=== PATIENT | female | born 1940 | race Caucasian/White ===

== ENCOUNTER → 2016-03-25 | Outpatient (CLI) | payer MEDICARE ==
[~2016-03-25] VITALS: Ht 162.6 cm; Wt 78.0 kg
[~2016-03-25] MED LIST: ALPR.25T; ALPR0.254; BNZ40T; CATHETER FLUSH 10 ML SYR IV PRN; FLD5TCR; HCT25T; HYDR-3816; HYDR25TA4; LSNP10T; MECL-106; MELO7.5T46; PRAV20TA3; PROP1TAB77; SIMV40TA2
--- NOTE | 2016-03-26 09:54 | STRESS TEST ---
PROCEDURE PHYSICIAN: NAIMA ESTEVEZ EXERCISE MYOVIEW STRESS TEST REPORT DATE OF PROCEDURE: 03/25/2016 REFERRING PHYSICIAN: Dr. Cortés Baseline heart rate is 74, baseline blood pressure: 166/87. Baseline EKG: Sinus rhythm with no ischemic changes. INDICATION FOR THE PROCEDURE: Syncope, hypertension. SUMMARY: The patient was injected with 10.33 mCi of technetium 99 Myoview and the resting images were obtained. Then the patient started exercising with a baseline heart rate, blood pressure and EKG mentioned above. At minute 3 and 7 seconds, the patient was injected with 32.6 mCi of technetium 99 Myoview. The patient was able to exercise for a total of 4 minutes on standard Horace protocol. With peak exercise level, EKG was showing minimal nondiagnostic changes. Blood pressure was 215/90. During recovery, heart rate and blood pressure returned to baseline. EKG returned to baseline. The resting and stress images were reviewed and compared in the short axis, horizontal long axis, and vertical long axis views. Review of the images showed good radiotracer uptake with small left ventricular size. SSS is 2, SDS 2, TID value 0.91. On the gated images, the left ventricle appeared to be normal size with normal contractility. Calculated ejection fraction 76%. CONCLUSION: 1. Fair exercise tolerance a total of 4 minutes on standard Horace protocol. Total of 4.6 METs, achieving 94% of maximum expected heart rate. 2. Severe hypertensive response to exercise. Returned to baseline during recovery. 3. Minimal nondiagnostic EKG changes with exercise. Returned to baseline during recovery. 4. No significant ischemia or infarction on SPECT images. 5. Normal left ventricular size with normal contractility. Calculated ejection fraction 76%. Job ID: [id number] Dictated Date: 03/25/2016 19:20:47 Tier Lift Operator Date: 03/26/2016 09:49:33 / ancelmo
== END ==
LOC: CARD 07:19
PROVIDERS: ATTEND Physician Assistant
DX: I65.23 Occlusion and stenosis of bilateral carotid arteries (principal); I10 Essential (primary) hypertension; E78.2 Mixed hyperlipidemia; R55 Syncope and collapse
CPT/HCPCS: 78452; 93017

== ENCOUNTER → 2016-03-31 | Outpatient (CLI) | payer MEDICARE ==
[~2016-03-31] MED LIST changes: -CATHETER FLUSH 10 ML SYR IV PRN
--- NOTE | 2016-04-02 07:36 | ECHOCARDIOGRAPHY REPORT ---
PROCEDURE PHYSICIAN: NAIMA ESTEVEZ DATE OF PROCEDURE: 04/01/2016 TWO DIMENSIONAL ECHOCARDIOGRAM REPORT PRIMARY PHYSICIAN: OTHER PHYSICIAN: REFERRING PHYSICIAN: Dr. Cortés ORDERING PHYSICIAN: INDICATION FOR THE PROCEDURE: 1. Hypertension. 2. Syncope. MEASUREMENTS DERIVED VALUES LV DIAMETER (LAX) NORMALS NORMALS Diastolic 3.8 (3.6-5.2) Eject. Fract. 60% (60%+/-6%) Systolic (2.3-3.9) Diastolic Vol. % Shortening (0.22-0.42) Systolic Vol. Aortic Root IVS THICKNESS Diastolic 1 (0.6-1.1) LVPW THICKNESS Diastolic 1 (0.6-1.1) LA DIAMETER Systolic 3.3 (2.1-3.7) FINDINGS: 1. Technical quality is good. 2. The left ventricle is normal in size with normal contractility. Systolic function appeared to be normal. Estimated ejection fraction 60%. 3. The left atrium is normal in size. No clot or thrombus were seen within the left atrium. 4. The right atrium and right ventricle are normal in size. No clot or thrombus were seen within the right side. 5. Mitral valve is normal in morphology with mild mitral regurgitation noted by color Doppler flow. No mitral valve prolapse. No mitral valve stenosis. 6. Aortic valve is trileaflet with normal opening and closing pattern. No significant aortic stenosis or regurgitation was seen. 7. Tricuspid valve is normal in morphology with mild tricuspid regurgitation noted by color Doppler flow. Doppler across tricuspid valve estimated pulmonary artery pressure of 20+ right atrial pressure. 8. Pulmonic valve is functioning normally. 9. No pericardial effusion. IN CONCLUSION: 1. Normal left ventricular size and systolic function. Estimated ejection fraction 60%. 2. Mild mitral and tricuspid regurgitation. 3. Estimated pulmonary artery pressure of 25 to 30 mmHg. Job ID: [id number] Dictated Date: 04/01/2016 15:26:40 Transplant Worker Date: 04/02/2016 07:30:26 / gissel
== END ==
LOC: CARD 13:35
PROVIDERS: ATTEND Physician Assistant
DX: I65.23 Occlusion and stenosis of bilateral carotid arteries (principal); I10 Essential (primary) hypertension; E78.2 Mixed hyperlipidemia; R55 Syncope and collapse
CPT/HCPCS: 93306

== ENCOUNTER → 2016-04-03 | Outpatient (CLI) | payer MEDICARE | LOC: RT 10:41 | PROVIDERS: ATTEND Internal Medicine | DX: R06.02 Shortness of breath (principal) | CPT/HCPCS: 94060; 94726; 94729 ==

== ENCOUNTER 2017-03-26 13:16 | Outpatient (RCR) | payer MEDICARE | END 2017-03-26 14:08 | disposition home or self-care (01) | PROVIDERS: ATTEND Nurse Practitioner Family | DX: M17.11 Unilateral primary osteoarthritis, right knee (principal) ==

== ENCOUNTER → 2017-09-21 | Outpatient (CLI) | payer MEDICARE ==
[~2017-09-21] MED LIST changes: +BENA40TA5; -BNZ40T; +HYDR-34; -HYDR-3816
--- NOTE | 2017-09-21 11:05 | Diagnostic Imaging Report ---
INDICATION: Routine screening. COMPARISON: 09/20/2015 and 09/18/2014. TECHNIQUE: 2D and 3D bilateral screening mammography was performed with CAD. FINDINGS: Both breasts remain heterogeneously dense, limiting the sensitivity of mammography. The parenchymal pattern is stable. No mass or malignant appearing microcalcifications are seen. Benign calcifications on the right are noted. The axillae are unremarkable. IMPRESSION: No mammographic features suspicious for malignancy are identified. ACR BI-RADS Category 2: Benign findings. Result letter will be mailed to the patient. Note: At least 10% of breast cancer is not imaged by mammography. Dictated by: Dictated on workstation # [id number]
== END ==
LOC: RAD 07:40
PROVIDERS: ATTEND Internal Medicine
DX: Z12.31 Encounter for screening mammogram for malignant neoplasm of breast (principal)
CPT/HCPCS: 77067

== ENCOUNTER 2018-05-04 09:46 | Outpatient (CLI) | payer MEDICARE ==
[~2018-05-04] VITALS: Ht 162.6 cm; Wt 78.9 kg
[~2018-05-04 09:46] MED LIST changes: -ALPR0.254; +ALPR0.254 PO; -MELO7.5T46; +MELO7.5T46 PO
[2018-05-04 09:56] VITALS: BP 132/81
[2018-05-04 10:53] LABS: BASOPHILS % (AUTO) 1 % (0-10); EOSINOPHILS # (AUTO) 0.2 10^3/uL (0.0-0.3); EOSINOPHILS % (AUTO) 5 % (0-10); HEMATOCRIT 40 % (35-52); HEMOGLOBIN 13.6 G/DL (11.5-16.0); LYMPHOCYTES % (AUTO) 25 % (12-44); MEAN CORPUSCULAR HEMOGLOBIN 30 PG (25-34); MEAN CORPUSCULAR HGB CONC 34 G/DL (32-36); MEAN CORPUSCULAR VOLUME 88 FL (80-99); MEAN PLATELET VOLUME 9.3 FL (7.4-10.4); MONOCYTES # (AUTO) 0.4 X 10^3 (0.0-1.0); MONOCYTES % (AUTO) 11 % (0-12); NEUTROPHILS # (AUTO) 2.3 X 10^3 (1.8-7.8); NEUTROPHILS % (AUTO) 59 % (42-75); PLATELET COUNT 288 10^3/uL (130-400); RED CELL DISTRIBUTION WIDTH 13.7 % (10.0-14.5)
[2018-05-04 11:03] LABS: INR 0.9 (0.8-1.4); PROTHROMBIN TIME PATIENT 12.6 SEC (12.2-14.7)
[2018-05-04 11:09] LABS: CALCIUM 10.1 MG/DL (8.5-10.1); CREATININE SERUM 1.02 MG/DL (0.60-1.30); POTASSIUM 4.5 MMOL/L (3.6-5.0)
[2018-05-04 11:45] LABS: BILIRUBIN,URINE NEGATIVE (NEGATIVE); CLARITY,URINE CLEAR; COLOR,URINE YELLOW; GLUCOSE, URINE (UA) NEGATIVE (NEGATIVE); KETONES,URINE NEGATIVE (NEGATIVE); LEUKOCYTE ESTERASE ,URINE NEGATIVE (NEGATIVE); NITRITE,URINE NEGATIVE (NEGATIVE); PH,URINE 7 (5-9); PROTEIN,URINE NEGATIVE (NEGATIVE); UROBILINOGEN,URINE NORMAL (NORMAL)
[2018-05-04 12:27] LABS: BACTERIA,URINE LARGE /HPF; WBC,URINE RARE /HPF
--- NOTE | 2018-05-04 12:39 | Diagnostic Imaging Report ---
EXAMINATION: PA and lateral chest at 10:40 a.m. INDICATION: Preop total knee arthroplasty. FINDINGS: There are no prior studies available for comparison. The heart size is within normal limits. The lungs are clear. There is no evidence for failure, pneumonia, or for a pleural effusion. The mediastinum is not widened. The osseous structures are intact. There is severe degenerative disc and bony disease at T8-T9 and T9-T10. IMPRESSION: There is no evidence for an acute cardiopulmonary abnormality. Dictated by: Dictated on workstation # [id number]
[2018-05-05] MEDS ORDERED: CALC1TAB PO (15:53)
[2018-05-05] MEDS ORDERED: AMLO5TAB9 PO (15:53)
[2018-05-05] MEDS ORDERED: EZET10TA5 PO (15:53)
[2018-05-05] MEDS ORDERED: OMEG-141 PO (15:53)
[2018-05-05] MEDS ORDERED: FENO160T37 PO (15:53)
[2018-05-05] MEDS ORDERED: POTA10TA6 PO (15:53)
[2018-05-05] MEDS ORDERED: MAGN500C15 PO (15:53)
[2018-05-05] MEDS ORDERED: ASCO10006 PO (15:53)
[2018-05-05] MEDS ORDERED: BENA40TA5 PO (15:53)
[2018-05-05] MEDS ORDERED: OMEP20CA12 PO (15:53)
[2018-05-05] MEDS ORDERED: ASPI-983 PO (15:53)
== END 2018-05-04 11:00 | disposition home or self-care (01) ==
LOC: PREOP 09:46
PROVIDERS: ATTEND Orthopaedic Surgery
DX: Z01.810 Encounter for preprocedural cardiovascular examination (principal); Z01.811 Encounter for preprocedural respiratory examination; Z01.812 Encounter for preprocedural laboratory examination; Z11.2 Encounter for screening for other bacterial diseases; M17.11 Unilateral primary osteoarthritis, right knee; R82.998 Other abnormal findings in urine
CPT/HCPCS: 36415; 71046; 80048; 81000; 85025; 85610; 86850; 86900; 86901; 87077; 87081; 87088; 93005

== ENCOUNTER 2018-05-10 08:02 | Inpatient (IN) | payer MEDICARE ==
--- NOTE | 2018-05-05 15:56 | NUR ---
PATIENT BROUGHT IN A DETAILED MEDICATION LIST TO [facility]. I CALLED [facility] AND VERIFIED THE DOSE OF THE PRESCRIPTIONS AND THAT THEY HAVE BEEN FILLED RECENTLY. UPDATED THE MED REC TO EXACTLY WHAT THE PATIENTS LIST STATED, AT THIS TIME I DID NOT CALL THE PATIENT.
[~2018-05-10] VITALS: Ht 162.6 cm; Wt 78.9 kg
[~2018-05-10 08:02] MED LIST changes: +AMLO5TAB9 PO; +ASCO10006 PO; +ASPI-983 PO; +BENA40TA5 PO; +CALC1TAB PO; +EZET10TA5 PO; +FENO160T37 PO; +MAGN500C15 PO; +OMEG-141 PO; +OMEP20CA12 PO; +POTA10TA6 PO
[2018-05-10 08:05] VITALS: BP 109/71
[2018-05-10] MEDS ORDERED: LACTATED RINGERS 1,000 ML IV PRN (08:07)
--- OUTSIDE RECORDS SUMMARY | 2018-05-10 08:09 | XMS REPORT | Clinical Summary ---
Author Author User, [employer] Organization [facility] Physician [place] Address Unknown Phone Unavailable Allergies, Adverse Reactions, Alerts Allergy Name Reaction Description Start Date Severity Status Provider EPIDURAL MEDICATION Dermatological problems, e.g., rash, hives Critical Active Christina Cortés Conditions or Problems Problem Name Problem Code Onset Date Status Entry Date Provider Comment Standard Description Annotate HYPERCHOLESTEROLEMIA 272.0 Active Christina Cortés Pure hypercholesterolemia SCREENING FOR OSTEOPOROSIS V82.81 Resolved Christina Cortés Screening for osteoporosis SCREENING MAMMOGRAM NEC V76.12 Resolved Christina Cortés Other screening mammogram HYPERTENSION 401.1 Active Christina Cortés Benign essential hypertension DYSPNEA 786.09 Resolved Christina Cortés Other dyspnea and respiratory abnormality ANXIETY 300.00 Resolved Christina Cortés Anxiety state, unspecified HERPES ZOSTER 053.9 Resolved Christina Cortés Herpes zoster without mention of complication KNEE PAIN 719.46 Resolved Christina Cortés Pain in joint involving lower leg left EPIPHORA 375.20 Resolved Christina Cortés Epiphora, unspecified as to cause SYNCOPE 780.2 Resolved Christina Cortés Syncope and collapse VACCINE AGAINST INFLUENZA V04.81 Resolved Christina Cortés Need for prophylactic vaccination and inoculation against influenza ESOPHAGEAL SPASM 530.5 Resolved Christina Cortés Dyskinesia of esophagus CERUMEN IMPACTION, BILATERAL 380.4 Resolved Christina Cortés Impacted cerumen VACCINE AGAINST INFLUENZA V04.81 Resolved Christina Cortés Need for prophylactic vaccination and inoculation against influenza ALLERGIC RHINITIS, SEASONAL 477.0 Resolved Christina Cortés Allergic rhinitis due to pollen VACCINE AGAINST STREPTOCOCCUS PNEUMONIAE V03.82 Resolved Christina Cortés Need for prophylactic vaccination against Streptococcus pneumoniae [pneumococcus] LEG PAIN, LEFT 729.5 Resolved Christina Cortés Pain in limb MUSCLE PAIN 729.1 Resolved Christina Cortés Myalgia and myositis, unspecified PVD 443.9 Resolved Christina Cortés Peripheral vascular disease, unspecified VERTIGO 780.4 Resolved Christina Cortés Dizziness and giddiness FOOT PAIN, LEFT 729.5 Resolved Christina Cortés Pain in limb OSTEOARTHRITIS 715.90 Active Christina Cortés Osteoarthrosis, unspecified whether generalized or localized, involving unspecified site PARONYCHIA, FINGER 681.02 Resolved Christina Cortés Onychia and paronychia of finger GANGLION CYST, WRIST, LEFT 727.41 Resolved Christina Cortés Ganglion of joint GANGLION CYST, WRIST, LEFT 727.41 Resolved Christina Cortés Ganglion of joint COUGH 786.2 Resolved Christina Cortés Cough Medication List Medication Instructions Start Date Stop Date Generic Name NDC Status Provider Patient Instruction ROBITUSSIN A-C 10-100 MG/5ML SYRUP 1 teaspoon PO Q 4-6 hr prn ROBITUSSIN A-C 10-100 MG/5ML SYRUP No Longer Active Christina Cortés FLUTICASONE PROPIONATE 50 MCG/ACT SUSP 2 puffs each nostril daily FLUTICASONE PROPIONATE 96625541595 Active Christina Cortés PRILOSEC 20 MG CPDR 1 po BID OMEPRAZOLE 28869678678 Active Christina Cortés ROBITUSSIN A-C 10-100 MG/5ML SYRUP 1 teaspoon PO Q 4-6 hr prn ROBITUSSIN A-C 10-100 MG/5ML SYRUP No Longer Active Christina Cortés LOMOTIL 2.5-0.025 MG TAB 1 PO TID prn DIPHENOXYLATE-ATROPINE 61043458560 Active Christina Cortés OMEPRAZOLE 20 MG CPDR 1 PO daily OMEPRAZOLE 02190842469 No Longer Active Christina Cortés LIPITOR 20 MG TAB 1 PO QD ATORVASTATIN CALCIUM 68258809671 Active Christina Cortés ROBITUSSIN A-C 10-100 MG/5ML SYRUP 1 teaspoon PO Q 4-6 hr prn ROBITUSSIN A-C 10-100 MG/5ML SYRUP No Longer Active Christina HUGO'Alex NASAL SPRAY (DEXAMETHASONE, GENTAMICIN, SALINE) 2 puffs each nostril TID for [address] TERRAZAS NASAL SPRAY ( DEXAMETHASONE, GENTAMICIN, SALINE) No Longer Active Na Lam DOCUSATE SODIUM 60 MG/15ML SYRP 2 drops each ear let stand for 5 minutes then rinse. Use daily for 7 days then return to office for flushing of ears DOCUSATE SODIUM No Longer Active Christina Cortés HYDROCODONE-ACETAMINOPHEN 7.5-325 MG TABS 1 PO Q 6hrs prn HYDROCODONE- ACETAMINOPHEN 87595366870 Active Christina Cortés GLUCOSAMINE COMPLEX TABS 2 po daily NUTRITIONAL SUPPLEMENTS 23064578904 No Longer Active Christina Cortés VITAMIN E 400 UNIT CAPS 1 po daily VITAMIN E 07097510644 No Longer Active Christina Mary Cortés ROBITUSSIN A-C 10-100 MG/5ML SYRUP 1 teaspoon PO Q 4-6 hr prn ROBITUSSIN A-C 10-100 MG/5ML SYRUP No Longer Active Shraddha Zarco FLAX SEEDS POWD 1 po daily FLAXSEED (LINSEED) 20495115428 Active Christina Mary Cortés ROBITUSSIN A-C 10-100 MG/5ML SYRUP 1 teaspoon PO Q 4-6 hr prn ROBITUSSIN A-C 10-100 MG/5ML SYRUP No Longer Active Na Carole ROBITUSSIN A-C 10-100 MG/5ML SYRUP 1 teaspoon PO Q 4-6 hr prn ROBITUSSIN A-C 10-100 MG/5ML SYRUP No Longer Active Christina Mary Cortés MOBIC 7.5 MG TABS 1 po BID MELOXICAM 42858376631 Active Na Schwarztis DARVOCET-N 100 100-650 MG TAB 1 PO Q6hrs prn headache PROPOXYPHENE N-APAP 70250419917 No Longer Active Christina Mary Cortés MULTIVITAMINS TABS 1 po daily MULTIPLE VITAMIN 32283011325 No Longer Active Christina Mary Cortés ROBITUSSIN A-C 10-100 MG/5ML SYRUP 1 teaspoon PO Q 4-6 hr prn ROBITUSSIN A-C 10-100 MG/5ML SYRUP No Longer Active Christina Mary Cortés VITAMIN B-12 1000 MCG TABS 1 PO daily CYANOCOBALAMIN 39901755308 No Longer Active Christina Mary Cortés SIMEON 180 MG TABS 1 PO QD FEXOFENADINE HCL Active Christina Mary Cortés FISH OIL CAPS 4 PO daily OMEGA-3 FATTY ACIDS CAPS 26659671491 Active Christina Mary Cortés FISH OIL 1000 MG CAPS 2 PO daily OMEGA-3 FATTY ACIDS 77633872539 No Longer Active Christina Cortés DOCUSATE SODIUM 50 MG/15ML SYRP 3 drops each ear. Let stand for 15 min. then rinse out with ball suction. Repeat daily. DOCUSATE SODIUM 20523941271 No Longer Active Christina Mary Cortés DOCUSATE SODIUM 60 MG/15ML SYRP 2 drops in each ear let stand for 5 minutes and then rinse out DOCUSATE SODIUM 95561117415 No Longer Active Christina Mary Cortés ROBITUSSIN A-C 10-100 MG/5ML SYRUP 1 teaspoon PO Q 4-6 hr prn ROBITUSSIN A-C 10-100 MG/5ML SYRUP 59387998177 No Longer Active Kenan Jaeger NAPROXEN 500 MG TAB 1 PO BID for arthritis pain NAPROXEN 13213946896 No Longer Active Christinakevin Cortés PATANOL 0.1 % SOLN as directed OLOPATADINE HCL 72185293608 No Longer Active Christina Cortés LOTENSIN 20 MG TABS 1 PO QD BENAZEPRIL HCL 06945178570 Active Christinakevin Cortés TOPROL XL 25 MG TB24 1 po daily METOPROLOL SUCCINATE 71791375235 No Longer Active Christina Mary Cortés K-DUR 10 MEQ TAB CR 1 po daily POTASSIUM CHLORIDE Active Christina Mary Cortés HYDROCHLOROTHIAZIDE 25 MG TAB 1 PO QD HYDROCHLOROTHIAZIDE 85579651831 Active Christinakevin Cortés DOCUSATE SODIUM 50 MG/15ML SYRP 3 drops each ear. Let stand for 15 min. then rinse out with bulb suction. Repeat daily until returning to office for ear cleaning. DOCUSATE SODIUM 74812325398 No Longer Active Christina Cortés ZOCOR 80 MG TABS 1/2 po daily SIMVASTATIN 60659929656 No Longer Active Christina Kabae Milana ANTIVERT 25 MG TABS 1 tablet po q 8 hrs. prn TID MECLIZINE HCL Active Christinakevin Cortés FELODIPINE 5 MG TB24 1 PO daily FELODIPINE 20103378863 No Longer Active Christinakevin Cortés LISINOPRIL 10 MG TABS 1 PO daily LISINOPRIL 82626158527 No Longer Active Christinakevin Cortés HYDROCHLOROTHIAZIDE 25 MG TABS 1 po daily HYDROCHLOROTHIAZIDE 12822394024 No Longer Active Christinakevin Cortés ASPIRIN 81 MG TAB 1 PO daily ASPIRIN 24697215736 Active Christinakevin Cortés BENAZEPRIL HCL 10 MG TABS 1 PO daily BENAZEPRIL HCL 50815889841 No Longer Active Na Lam CALCIUM CITRATE + D 1500-200 MG-UNIT TABS 2 PO daily CALCIUM CITRATE- VITAMIN D 24720541113 Active Christinakevin Cortés XANAX 0.25 MG TABS 1 po q 6 hrs. prn ALPRAZOLAM 79016260080 Active Christinakevin Cortés VITAMIN C 1000 MG TABS 1 po daily ASCORBIC ACID 53206487720 Active Christina Cortés DOCUSATE SODIUM 100 MG CAPS 2 po daily DOCUSATE SODIUM 70955002785 Active Christina Cortés Immunizations Vaccine Administration Date Value Standard Description Influenza vaccine given DONE influenza virus vaccine, unspecified formulation Influenza vaccine given DONE influenza virus vaccine, unspecified formulation Influenza vaccine given DONE influenza virus vaccine, unspecified formulation pneumococcal immunization administered second dose pneumococcal polysaccharide vaccine, 23 valent Vital Signs Date Name Value Unit Range Description blood pressure, diastolic - 8462-4 65 mm[Hg] BP leach blood pressure, systolic - 8480-6 115 mm[Hg] BP sys pulse rate E&M - 8867-4 64 /min Heart rate respiratory rate E&M - 9279-1 14 /min Resp rate temperature E&M 98.5 [degF] Body temperature weight E&M - 3141-9 170 [lb_av] Weight Measured blood pressure, diastolic - 8462-4 65 mm[Hg] BP leach blood pressure, systolic - 8480-6 130 mm[Hg] BP sys pulse rate E&M - 8867-4 60 /min Heart rate respiratory rate E&M - 9279-1 14 /min Resp rate temperature E&M 98.1 [degF] Body temperature weight E&M - 3141-9 165 [lb_av] Weight Measured blood pressure, diastolic - 8462-4 76 mm[Hg] BP leach blood pressure, systolic - 8480-6 136 mm[Hg] BP sys pulse rate E&M - 8867-4 64 /min Heart rate respiratory rate E&M - 9279-1 14 /min Resp rate temperature E&M 98.6 [degF] Body temperature weight E&M - 3141-9 180 [lb_av] Weight Measured Diagnostic Results Date Name Value Unit Range Description Clinical Lists Update: CBC,CMP,FLP,TSH,HGA1C - Chemistry Estimated Glomerular Filtration Rate (calc) 69 mL/min/1.73m2 albumin, serum 4.8 g/dL cholesterol/HDL ratio, serum, percent 3.5 anion gap, serum 14 sodium, serum 135 mmol/L triglyceride, serum, fasting 193 mg/dL bilirubin, serum, total 0.8 mg/dL alanine aminotransferase (SGPT), serum 23 U/L aspartate aminotransferase (SGOT), serum 24 U/L protein, total, serum 7.1 g/dL potassium, serum 4.0 mmol/L LDL cholesterol, serum 113 mg/dL thyroid stimulating hormone, serum 2.49 u[iU]/mL hemoglobin A1C, blood, as % of total hemoglobin 5.8 % HDL cholesterol, serum 60.0 mg/dL creatinine, serum 0.9 mg/dL carbon dioxide, venous blood 28.0 mmol/L cholesterol, serum 212 mg/dL chloride, serum 97 mmol/L calcium, serum 10.6 mg/dL urea nitrogen, blood 13 mg/dL alkaline phosphatase, serum 60 U/L glucose, plasma fasting 114 mg/dL Clinical Lists Update: CBC,CMP,FLP,TSH,HGA1C - Hematology hemoglobin, blood 15.0 g/dL hematocrit, blood 45.1 % platelet count 271 10*3/mm3 erythrocyte (RBC) count 4.91 10*6/mm3 leukocyte count, blood 5.0 10*3/mm3 mean corpuscular volume, RBC 92 fL red blood cell distribution width 12.3 % Clinical Lists Update: CMP,FLP,HgA1c - Chemistry alanine aminotransferase (SGPT), serum 16 U/L Estimated Glomerular Filtration Rate (calc) 76 mL/min/1.73m2 protein, total, serum 6.7 g/dL potassium, serum 3.8 mmol/L LDL cholesterol, serum 109 mg/dL hemoglobin A1C, blood, as % of total hemoglobin 5.9 % HDL cholesterol, serum 61.0 mg/dL creatinine, serum 0.8 mg/dL carbon dioxide, venous blood 30.0 mmol/L cholesterol, serum 192 mg/dL chloride, serum 97 mmol/L calcium, serum 9.7 mg/dL urea nitrogen, blood 14 mg/dL alkaline phosphatase, serum 58 U/L albumin, serum 4.4 g/dL bilirubin, serum, total 0.6 mg/dL triglyceride, serum, fasting 112 mg/dL sodium, serum 135 mmol/L anion gap, serum 12 cholesterol/HDL ratio, serum, percent 3.1 glucose, plasma fasting 102 mg/dL aspartate aminotransferase (SGOT), serum 20 U/L Encounters Code Encounter Date Provider Facility CPT-61746 Ofc Vst, Est Level III 12:20:26 CDT Christina Mary Andersonner, DO, FACP CPT-71637 Ofc Vst, Est Level III 18:03:25 CDT Christina Mary Cortés, DO, FACP CPT-65875 Ofc Vst, Est Level II 14:22:21 MEDICAL SERVICES MANAGER Christina Cortés, DO, FACP CPT-76377 Ofc Vst, Est Level III 14:43:51 CDT Christinakevin Cortés, DO, FACP CPT-57292 Ofc Vst, Est Level III 13:11:10 CDT Christinakevin Cortés, DO, FACP CPT-26492 Ofc Vst, Est Level IV 11:33:04 CDT Christina Cortés, DO, FACP CPT-55128 Ofc Vst, Est Level IV 10:47:50 MEDICAL SERVICES MANAGER Christina Cortés, DO, FACP CPT-37349 Ofc Vst, Est Level IV 10:59:06 CDT Christina Cortés, DO, FACP CPT-64846 Ofc Vst, Est Level IV 10:43:37 CDT Christina Cortés, DO, FACP CPT-29637 Ofc Vst, Est Level III 15:56:02 CDT Christina Mary Cortés Christina S Cortés, DO, FACP CPT-74978 Ofc Vst, Est Level IV 11:16:44 CDT Christina Mary Johnson Cortés, DO, FACP CPT-32953 Ofc Vst, Est Level IV 11:41:14 MEDICAL SERVICES MANAGER Christina Johnson Milana, DO, FACP CPT-52982 Ofc Vst, Est Level IV 09:56:44 CDT Christina Mary Johnson Milana, DO, FACP CPT-99289 Ofc Vst, Est Level II 09:40:57 CDT Christina Mary Johnson Milana, DO, FACP CPT-13845 Ofc Vst, Est Level IV 09:53:38 CDT Christina Mary Johnson Milana, DO, FACP CPT-24581 Ofc Vst, Est Level V 10:09:09 CDT Christina Mary Johnson Milana, DO, FACP CPT-04593 Ofc Vst, Est Level V 10:05:54 CDT Christinakevin Johnson Milana, DO, FACP CPT-91430 Ofc Vst, Est Level IV 10:30:36 MEDICAL SERVICES MANAGER Christina Johnson Milana, DO, FACP CPT-48576 Ofc Vst, Est Level IV 09:54:30 CDT Christina Mary Johnson Milana, DO, FACP CPT-72737 Ofc Vst, Est Level II 10:40:48 CDT Christina Mary Johnson Milana, DO, FACP CPT-02533 Ofc Vst, Est Level IV 09:47:27 CDT Christina Mary Johnson Milana, DO, FACP CPT-13498 Ofc Vst, Est Level III 14:48:39 CDT Christina Mary Johnson Milana, DO, FACP CPT-38266 Ofc Vst, Est Level V 09:35:50 CDT Christina Mary Andersonner Christina Alex Cortés, DO, FACP CPT-73298 Ofc Vst, Est Level IV 09:33:23 CDT Christina Mary Milana Vasquez Alex Cortés, DO, FACP CPT-80306 Ofc Vst, Est Level IV 11:24:41 CDT Christina Mary Cortés Christina Alex AndersonCortés, DO, FACP CPT-54860 Ofc Vst, Est Level III 10:21:08 CDT Christinakevin Cortés [facility] [place] CPT-80807 Ofc Vst, Est Level IV 16:13:50 CDT Christina Cortés [facility] [place] CPT-19560 Ofc Vst, Est Level V 11:30:05 CDT Christinakevin Cortés [facility] [place] CPT-86575 Ofc Vst, Est Level IV 16:38:00 CDT Christina Mary Cortés [facility] [place] CPT-89930 Ofc Vst, Est Level IV 11:51:53 MEDICAL SERVICES MANAGER Christina Cortés [facility] [place] CPT-50862 Ofc Vst, Est Level IV 10:20:26 CDT Christina Cortés [facility] [place] CPT-68857 Ofc Vst, New Level III 08:56:31 CDT [facility] Mary Cortés [facility] [place] Procedures Code Procedure Name Date Entry Date Standard Description CPT-G0439 Medicare Annual Wellness Visit 17:07:55 MEDICAL SERVICES MANAGER CPT-G8446 E-Prescribing not done due to controlled substance 11:46 :17 MEDICAL SERVICES MANAGER CPT-G0439 Medicare Annual Wellness Visit 11:46:17 MEDICAL SERVICES MANAGER CPT-G8446 E-Prescribing not done due to controlled substance 17:02 :30 MEDICAL SERVICES MANAGER CPT-G0438 Medicare Annual Wellness Visit Initial 17:02:30 MEDICAL SERVICES MANAGER CPT-47636 Injection, Pneumovax 11:41:14 MEDICAL SERVICES MANAGER CPT-25514 Ear Wax Removal 09:40:57 CDT CPT-8446 E-Prescribing not done due to controlled substance 13:20: 39 CDT CPT-81578 Ear Wax Removal 13:20:39 CDT CPT-8446 E-Prescribing not done due to controlled substance 10:05: 54 CDT CPT-G0008 Administration Influenza Vaccine 09:54:30 CDT CPT-57691 Influenza Vaccine 09:54:30 CDT CPT-71070 Ear Wax Removal 10:40:48 CDT CPT-53131 Influenza Vaccine 10:12:48 CDT CPT-G0008 Administration Influenza Vaccine 10:12:48 CDT CPT-G0366 Welcome to Medicare EKG 08:56:31 CDT
--- OUTSIDE RECORDS SUMMARY | 2018-05-10 08:10 | XMS REPORT | Continuity of Care Document ---
Author Author [facility] Organization [facility] Address Unknown Phone Unavailable Allergies Active Description Code Type Severity Reaction Onset Reported/Identified Relationship to Patient Clinical Status Yes No Known Drug Allergies [id number] Drug Allergy Unknown N/A 04/05/2015 Medications There is no data. Problems Date Dx Coded Attending Type Code Diagnosis Diagnosed By 03/05/2014 Ot 733.90 03/05/2014 Ot V76.12 03/05/2014 Ot 272.4 03/05/2014 Ot 397.0 03/05/2014 Ot 401.9 03/05/2014 Ot 416.8 03/05/2014 Ot 424.0 03/05/2014 Ot 427.0 03/05/2014 Ot 780.4 03/05/2014 Ot V76.12 03/05/2014 Ot 729.1 03/05/2014 Ot 729.5 03/05/2014 Ot 443.9 03/05/2014 Ot 729.5 03/05/2014 Ot V76.12 03/05/2014 Ot 401.9 03/05/2014 Ot 786.50 03/05/2014 SILVERIO JACK DO Ot V76.12 03/05/2014 SILVERIO JACK DO Ot V76.12 03/05/2014 Ot 715.34 03/21/2014 Ot 715.34 09/18/2014 Ot 733.90 09/18/2014 Ot V76.12 09/18/2014 Ot 272.4 09/18/2014 Ot 397.0 09/18/2014 Ot 401.9 09/18/2014 Ot 416.8 09/18/2014 Ot 424.0 09/18/2014 Ot 427.0 09/18/2014 Ot 780.4 09/18/2014 Ot V76.12 09/18/2014 Ot 729.1 09/18/2014 Ot 729.5 09/18/2014 Ot 443.9 09/18/2014 Ot 729.5 09/18/2014 Ot V76.12 09/18/2014 Ot 401.9 09/18/2014 Ot 786.50 09/18/2014 JACK DO, SILVERIO Ot V76.12 09/18/2014 JACK DO, SILVERIO Ot V76.12 09/18/2014 Ot 715.34 10/10/2014 JACK DO, SILVERIO Ot V76.12 04/05/2015 SAJAN LOPEZ MANAGER NIGHT Ot R25.2 CRAMP AND SPASM 04/25/2015 EITAN SALINAS MANAGER NIGHT Ot R53.83 09/25/2015 JACK DO, SILVERIO Ot Z12.31 ENCNTR SCREEN MAMMOGRAM FOR MALIGNANT NE 09/25/2015 JACK DO, SILVERIO Ot Z12.31 ENCNTR SCREEN MAMMOGRAM FOR MALIGNANT NE 10/11/2015 JACK DO, SILVERIO Ot Z12.31 ENCNTR SCREEN MAMMOGRAM FOR MALIGNANT NE 03/25/2016 Ot 729.1 MYALGIA AND MYOSITIS NOS 03/25/2016 Ot 729.5 PAIN IN LIMB 03/25/2016 Ot 443.9 PERIPH VASCULAR DIS NOS 03/25/2016 Ot 729.5 PAIN IN LIMB 03/25/2016 Ot V76.12 OTH SCREEN MAMMO-MALIGN NEOPLASM OF KEZIA 03/25/2016 Ot 401.9 HYPERTENSION NOS 03/25/2016 Ot 786.50 CHEST PAIN NOS 03/25/2016 JACK DO, SILVERIO Ot V76.12 OTH SCREEN MAMMO-MALIGN NEOPLASM OF KEZIA 03/25/2016 JACK DO, SILVERIO Ot V76.12 OTH SCREEN MAMMO-MALIGN NEOPLASM OF KEZIA 03/25/2016 Ot 715.34 LOC OSTEOARTH NOS-HAND 03/25/2016 JACK DO, SILVERIO Ot V76.12 OTH SCREEN MAMMO-MALIGN NEOPLASM OF KEZIA 03/25/2016 EITAN SALINAS MANAGER NIGHT Ot R53.83 OTHER FATIGUE 03/25/2016 MARCIE DO SILVERIO Ot Z12.31 ENCNTR SCREEN MAMMOGRAM FOR MALIGNANT NE 03/26/2016 JIN DEL TORO Ot E78.2 MIXED HYPERLIPIDEMIA 03/26/2016 JIN DEL TORO Ot I10 ESSENTIAL (PRIMARY) HYPERTENSION 03/26/2016 COREA-ANNA PA, JIN K Ot 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 03/26/2016 COREA-ANNA PA, JIN K Ot R55 SYNCOPE AND COLLAPSE 04/06/2016 SILVERIO JACK DO Ot R06.02 SHORTNESS OF BREATH 04/28/2016 COREA-ANNA PA, JIN K Ot E78.2 MIXED HYPERLIPIDEMIA 04/28/2016 COREA-ANNA PA, JIN K Ot I10 ESSENTIAL (PRIMARY) HYPERTENSION 04/28/2016 COREA-ANNA PA, JIN K Ot 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 04/28/2016 COREA-ANNA PA, JIN K Ot R55 SYNCOPE AND COLLAPSE 04/28/2016 COREA-ANNA PA, JIN K Ot E78.2 MIXED HYPERLIPIDEMIA 04/28/2016 COREA-ANNA PA, JIN K Ot I10 ESSENTIAL (PRIMARY) HYPERTENSION 04/28/2016 COREA-ANNA PA, JIN K Ot 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 04/28/2016 COREA-ANNA PA, JIN K Ot R55 SYNCOPE AND COLLAPSE 04/28/2016 SILVERIO JACK DO Ot R06.02 SHORTNESS OF BREATH 05/06/2016 COREA-ANNA PA, JIN K Ot E78.2 MIXED HYPERLIPIDEMIA 05/06/2016 COREA-ANNA PA, JIN K Ot I10 ESSENTIAL (PRIMARY) HYPERTENSION 05/06/2016 COREA-ANNA PA, JIN K Ot 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 05/06/2016 COREA-ANNA PA, JIN K Ot R55 SYNCOPE AND COLLAPSE 05/06/2016 COREA-ANNA PA, JIN K Ot E78.2 MIXED HYPERLIPIDEMIA 05/06/2016 COREA-ANNA PA, JIN K Ot I10 ESSENTIAL (PRIMARY) HYPERTENSION 05/06/2016 COREA-ANNA PA, JIN K Ot 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 05/06/2016 COREA-ANNA PA, JIN K Ot R55 SYNCOPE AND COLLAPSE 05/06/2016 SILVERIO JACK DO Ot R06.02 SHORTNESS OF BREATH 03/26/2017 JOVANA NEWMAN APRN Ot M17.11 UNILATERAL PRIMARY OSTEOARTHRITIS, RIGHT 09/23/2017 SILVERIO JACK DO Ot Z12.31 ENCNTR SCREEN MAMMOGRAM FOR MALIGNANT NE 09/23/2017 JACKANASTASIYA COLLINS SILVERIO Ot Z12.31 ENCNTR SCREEN MAMMOGRAM FOR MALIGNANT NE 10/12/2017 JUANIS JACK DOI Ot Z12.31 ENCNTR SCREEN MAMMOGRAM FOR MALIGNANT NE 04/15/2018 SILVERIO JACK DO Ot V76.12 OTH SCREEN MAMMO-MALIGN NEOPLASM OF KEZIA 04/15/2018 Ot 715.34 LOC OSTEOARTH NOS-HAND 04/15/2018 JUANIS JACK DOI Ot V76.12 OTH SCREEN MAMMO-MALIGN NEOPLASM OF KEZIA 04/15/2018 EITAN SALINAS MANAGER NIGHT Ot R53.83 OTHER FATIGUE 04/15/2018 SILVERIO JACK DO Ot Z12.31 ENCNTR SCREEN MAMMOGRAM FOR MALIGNANT NE 04/15/2018 JIN DEL TORO Ot E78.2 MIXED HYPERLIPIDEMIA 04/15/2018 YAEL COBB, JNI Junior Ot I10 ESSENTIAL (PRIMARY) HYPERTENSION 04/15/2018 JIN DEL TORO Ot 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 04/15/2018 JIN DEL TORO Ot R55 SYNCOPE AND COLLAPSE 04/15/2018 JIN DEL TORO Ot E78.2 MIXED HYPERLIPIDEMIA 04/15/2018 YAEL COBB, JIN Junior Ot I10 ESSENTIAL (PRIMARY) HYPERTENSION 04/15/2018 YAEL COBB, JIN Junior Ot 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 04/15/2018 JIN DEL TORO Ot R55 SYNCOPE AND COLLAPSE 04/15/2018 MARCIE COLLINS SILVERIO Ot R06.02 SHORTNESS OF BREATH 04/15/2018 SILVERIO JACK DO Ot Z12.31 ENCNTR SCREEN MAMMOGRAM FOR MALIGNANT NE 05/04/2018 MARCIN GONZALEZ DO Ot M79.661 PAIN IN RIGHT LOWER LEG 05/05/2018 MARCIN GONZALEZ DO Ot M17.11 UNILATERAL PRIMARY OSTEOARTHRITIS, RIGHT 05/05/2018 MARCIN GONZALEZ DO Ot R82.998 OTHER ABNORMAL FINDINGS IN URINE 05/05/2018 MARCIN GONZALEZ DO Ot Z01.810 ENCOUNTER FOR PREPROCEDURAL CARDIOVASCUL 05/05/2018 MARCIN GONZALEZ DO Ot Z01.811 ENCOUNTER FOR PREPROCEDURAL RESPIRATORY 05/05/2018 MARCIN GONZALEZ DO Ot Z01.812 ENCOUNTER FOR PREPROCEDURAL LABORATORY E 05/05/2018 MARCIN GONZALEZ DO Ot Z11.2 ENCOUNTER FOR SCREENING FOR OTHER BACTER Procedures There is no data. Results Test Result Range Complete blood count (CBC) with automated white blood cell (WBC) differential - 05/04/18 10:13 Blood leukocytes automated count (number/volume) 4.0 10*3/uL 4.3-11.0 Blood erythrocytes automated count (number/volume) 4.56 10*6/uL 4.35-5.85 Venous blood hemoglobin measurement (mass/volume) 13.6 g/dL 11.5-16.0 Blood hematocrit (volume fraction) 40 % 35-52 Automated erythrocyte mean corpuscular volume 88 [foz_us] 80-99 Automated erythrocyte mean corpuscular hemoglobin (mass per erythrocyte) 30 pg 25-34 Automated erythrocyte mean corpuscular hemoglobin concentration measurement ( mass/volume) 34 g/dL 32-36 Automated erythrocyte distribution width ratio 13.7 % 10.0-14.5 Automated blood platelet count (count/volume) 288 10*3/uL 130-400 Automated blood platelet mean volume measurement 9.3 [foz_us] 7.4-10.4 Automated blood neutrophils/100 leukocytes 59 % 42-75 Automated blood lymphocytes/100 leukocytes 25 % 12-44 Blood monocytes/100 leukocytes 11 % 0-12 Automated blood eosinophils/100 leukocytes 5 % 0-10 Automated blood basophils/100 leukocytes 1 % 0-10 Blood neutrophils automated count (number/volume) 2.3 10*3 1.8-7.8 Blood lymphocytes automated count (number/volume) 1.0 10*3 1.0-4.0 Blood monocytes automated count (number/volume) 0.4 10*3 0.0-1.0 Automated eosinophil count 0.2 10*3/uL 0.0-0.3 Automated blood basophil count (count/volume) 0.0 10*3/uL 0.0-0.1 PT panel in platelet poor plasma by coagulation assay - 05/04/18 10:13 Prothrombin time (PT) in platelet poor plasma by coagulation assay 12.6 s 12.2-14.7 INR in platelet poor plasma or blood by coagulation assay 0.9 0.8-1.4 Whole blood basic metabolic panel - 05/04/18 10:13 Serum or plasma sodium measurement (moles/volume) 138 mmol/L 135-145 Serum or plasma potassium measurement (moles/volume) 4.5 mmol/L 3.6-5.0 Serum or plasma chloride measurement (moles/volume) 104 mmol/L 98-107 Carbon dioxide 24 mmol/L 21-32 Serum or plasma anion gap determination (moles/volume) 10 mmol/L 5-14 Serum or plasma urea nitrogen measurement (mass/volume) 20 mg/dL 7-18 Serum or plasma creatinine measurement (mass/volume) 1.02 mg/dL 0.60-1.30 Serum or plasma urea nitrogen/creatinine mass ratio 20 NRG Serum or plasma creatinine measurement with calculation of estimated glomerular filtration rate 53 NRG Serum or plasma glucose measurement (mass/volume) 114 mg/dL 70-105 Serum or plasma calcium measurement (mass/volume) 10.1 mg/dL 8.5-10.1 Blood type T Indirect antibody screen panel - 05/04/18 10:13 ABO+Rh group AP NRG Blood group antibody screen NEGATIVE NRG Methicillin resistant Staphylococcus aureus (MRSA) screening culture - 10:13 Methicillin resistant Staphylococcus aureus (MRSA) screening culture NEG NRG Complete urinalysis with reflex to culture - 05/04/18 10:57 Urine color determination YELLOW NRG Urine clarity determination CLEAR NRG Urine pH measurement by test strip 7 5-9 Specific gravity of urine by test strip 1.005 1.016- 1.022 Urine protein assay by test strip, semi-quantitative NEGATIVE NEGATIVE Urine glucose detection by automated test strip NEGATIVE NEGATIVE Erythrocytes detection in urine sediment by light microscopy NEGATIVE NEGATIVE Urine ketones detection by automated test strip NEGATIVE NEGATIVE Urine nitrite detection by test strip NEGATIVE NEGATIVE Urine total bilirubin detection by test strip NEGATIVE NEGATIVE Urine urobilinogen measurement by automated test strip (mass/volume) NORMAL NORMAL Urine leukocyte esterase detection by dipstick NEGATIVE NEGATIVE Automated urine sediment erythrocyte count by microscopy (number/high power field) NONE NRG Automated urine sediment leukocyte count by microscopy (number/high power field ) RARE NRG Bacteria detection in urine sediment by light microscopy LARGE NRG Squamous epithelial cells detection in urine sediment by light microscopy 2-5 NRG Crystals detection in urine sediment by light microscopy NONE NRG Casts detection in urine sediment by light microscopy NONE NRG Mucus detection in urine sediment by light microscopy NEGATIVE NRG Complete urinalysis with reflex to culture YES NRG Bacterial urine culture - 05/04/18 10:57 Bacterial urine culture SEE COMMEN NRG COLONY COUNT . NRG FTX;REPORTABLE ID REPORTED 05/05/18 15:05 NRG FREE TEXT ENTRY 2 ID REPORTED 05/05/18 15:05 NRG RML Sensitivity Panel - 05/04/18 10:57 Gentamicin susceptibility test by minimum inhibitory concentration < = NRG Trimethoprim/sulfamethoxazole susceptibility test by minimum inhibitoryconcentration <= NRG Levofloxacin susceptibility test by minimum inhibitory concentration <= NRG Ampicillin susceptibility test by minimum inhibitory concentration < = NRG Cefazolin susceptibility test by minimum inhibitory concentration < = NRG Ceftriaxone susceptibility test by minimum inhibitory concentration <= NRG Ciprofloxacin susceptibility test by minimum inhibitory concentration <= NRG Meropenem susceptibility test by minimum inhibitory concentration < = NRG Nitrofurantoin susceptibility test by minimum inhibitory concentration 32 NRG Amoxicillin and clavulanate potassium susc BECKY <= NRG Encounters ACCT No. Visit Date/Time Discharge Status Pt. Type Provider Facility Loc./Unit Complaint [id number] 05/04/2018 09:46:00 05/04/2018 11:00:00 DIS Outpatient MARCIN GONZALEZ DO [facility] PREOP RIGHT TOTAL KNEE ARTHROPLASTY [id number] 09/21/2017 07:40:00 09/21/2017 23:59:59 CLS Outpatient SILVERIO JACK DO [facility] RAD SCREENING [id number] 03/26/2017 13:16:00 03/26/2017 14:08:00 DIS Outpatient JOVANA NEWMAN APRN [facility] REHAB OA R KNEE [id number] 04/03/2016 10:41:00 04/03/2016 23:59:59 CLS Outpatient SILVERIO JACK DO [facility] RT SOB [id number] 03/31/2016 13:35:00 03/31/2016 23:59:59 CLS Outpatient JIN DEL TORO [facility] CARD HTN,SYNCOPE, CAROTID ARTERY STENOSIS [id number] 03/25/2016 07:19:00 03/25/2016 23:59:59 CLS Outpatient JIN DEL TORO [facility] CARD HTN,SYNCOPE, HYPERLIPIDEMIA [id number] 09/20/2015 07:15:00 09/20/2015 23:59:59 CLS Outpatient JACK DO, SILVERIO [facility] RAD SCREENING [id number] 04/05/2015 19:31:00 04/05/2015 23:59:59 CLS Outpatient EITAN SALINAS MANAGER NIGHT [facility] LAB OTHER FATIGUE [id number] 04/05/2015 20:45:00 04/05/2015 22:43:00 DIS Emergency SAJAN LOPEZ MANAGER NIGHT [facility] ER LEG PAIN [id number] 09/18/2014 09:56:00 09/18/2014 23:59:59 CLS Outpatient JACK DO, SILVERIO [facility] RAD SCREENING [id number] 09/15/2013 07:12:00 09/15/2013 23:59:59 CLS Outpatient JACK DO, SILVERIO [facility] RAD SCREENING [id number] 09/14/2012 07:08:00 09/14/2012 23:59:59 CLS Outpatient JACK DO, SILVERIO [facility] RAD SCREENING [id number] 05/10/2018 08:02:00 ACT Inpatient LISA MARCIN COLLINS [facility] SURG PRIMARY OSTEOARTHRITIS RIGHT KNEE [id number] 02/27/2014 10:46:00 Document Registration [id number] 12/22/2011 14:11:00 Document Registration [id number] 09/14/2011 08:45:00 Document Registration [id number] 12/19/2010 09:30:00 Document Registration [id number] 11/13/2010 16:12:00 Document Registration [id number] 09/08/2010 09:06:00 Document Registration [id number] 08/06/2010 09:28:00 Document Registration [id number] 08/29/2009 10:05:00 Document Registration [id number] 09/18/2014 09:56:25 ACT Document Registration
[2018-05-10] MEDS ORDERED: ceFAZolin 2 GM IV Premixed 50 ML IV ONE (08:15)
[2018-05-10] MEDS ORDERED: ONDANSETRON 4 MG/2 ML (SDV) Z0FRAN IVP ONE (08:15)
[2018-05-10] MEDS ORDERED: CELECOXIB 100 MG (CeleBREX) CAP PO ONE (08:15)
[2018-05-10] MEDS ORDERED: GABAPENTIN 600 MG (NEURONTIN) TAB PO ONE (08:15)
[2018-05-10] MEDS ORDERED: DEXAMETHASONE 4 MG/ML SDV (DECADRON) IV ONE (08:15)
[2018-05-10] MEDS ORDERED: GENTAMICIN 40 MG/ML 2 ML INJ SDV ONE (08:56)
[2018-05-10] MEDS ORDERED: NEO/POLY/BAC (NEOSPORIN) OINT 15 GM TUBE ONE (08:56)
[2018-05-10] MEDS ORDERED: fentaNYL INJECTION 100 MCG/2 ML AMP ONE (09:10)
[2018-05-10] MEDS ORDERED: MIDAZOLAM 2 MG/2 ML (VERSED) VIAL ONE ×2 (09:10→10:37)
[2018-05-10] MEDS ORDERED: BUPIVACAINE 0.5% 30 ML (SENSORCAINE) VIAL ONE (09:50)
[2018-05-10] MEDS ORDERED: LIDOCAINE PF 2% 5 ML (XYLOCAINE) VIAL ONE ×2 (09:50→11:07)
--- NOTE | 2018-05-10 10:27 | Progress Note-Pre Operative ---
Pre-Operative Progress Note H&P Reviewed The H&P was reviewed, patient examined and no changes noted. Date Seen by Provider: May 10, 2018 Time Seen by Provider: 10:00 Date H&P Reviewed: May 10, 2018 Time H&P Reviewed: 10:00 Pre-Operative Diagnosis: Primary Osteoarthritis Right Knee MARCIN GONZALEZ DO May 10, 2018 10:27
[2018-05-10] MEDS ORDERED: D5 1/2 NS 1000 ML IV SOLUTION 1,000 ML IV SCH (10:45)
[2018-05-10] MEDS ORDERED: PROMETHAZINE INJ 25 MG/ML (PHENERGAN) AMP IVP PRN (10:45)
[2018-05-10] MEDS ORDERED: BISACODYL 10 MG SUPP (DULCOLAX) PR PRN (10:45)
[2018-05-10] MEDS ORDERED: morphine INJ 10 MG/ML 1ML (SYR OR VIAL) IVP PRN (10:45)
[2018-05-10] MEDS ORDERED: ALPRAZolam 0.25 MG (XANAX) TAB PO PRN (10:45)
[2018-05-10] MEDS ORDERED: OMEPRAZOLE 20 MG (PriLOSEC) CAP NON-FORMULARY PO PRN (10:45)
[2018-05-10] MEDS ORDERED: diphenhydrAMINE 50 MG/ML INJ (BENADRYL) IV PRN (10:45)
[2018-05-10] MEDS ORDERED: INTRA-ARTICULAR IU ONE ×4 (10:45)
[2018-05-10] MEDS ORDERED: ONDANSETRON 4 MG/2 ML (SDV) Z0FRAN ONE (11:07)
[2018-05-10] MEDS ORDERED: TRANEXAMIC ACID 100 MG/ML 10 ML INJECTION IV ONE (11:07)
[2018-05-10] MEDS ORDERED: proPOfol 200 MG/20 ML (DIPRIVAN) VIAL IV ONE (11:07)
[2018-05-10] MEDS ORDERED: ROCURONIUM 10 MG/ML 5 ML SYRINGE IV ONE (11:07)
[2018-05-10] MEDS ORDERED: GLYCOPYRROLATE 0.2 MG/ML (ROBINUL) 2 ML VIAL ONE (11:53)
[2018-05-10] MEDS ORDERED: NEOSTIGMINE 1 MG/ML 5 ML SYRINGE ONE (11:53)
[2018-05-10] MEDS ORDERED: SEVOFLURANE (ULTANE) 15 ML INHAL SOLN ONE (12:23)
[2018-05-10] MEDS ORDERED: fentaNYL INJECTION 100 MCG/2 ML AMP IVP ONE (13:00)
[2018-05-10] MEDS ORDERED: morphine INJ 10 MG/ML 1ML (SYR OR VIAL) IVP ONE (13:00)
[2018-05-10] MEDS ORDERED: MEPERIDINE (DEMEROL) INJ 50 MG/ML IVP ONE (13:00)
[2018-05-10] MEDS ORDERED: ONDANSETRON 4 MG/2 ML (SDV) Z0FRAN IVP PRN (13:00)
--- NOTE | 2018-05-10 13:35 | Diagnostic Imaging Report ---
INDICATION: Status post right knee replacement. COMPARISON: None. FINDINGS: Two views of the right knee were obtained. Expected postoperative changes are seen from right knee total arthroplasty. Femoral and tibial components appear well-seated. There is no evidence of periprosthetic fracture. There is a small amount of subcutaneous emphysema in the soft tissues over the knee. Skin maira are seen centrally over the anterior aspect of the knee. No unexpected radiopaque foreign bodies are identified. IMPRESSION: Expected postsurgical changes from right knee total arthroplasty, as described above. No unexpected radiopaque foreign bodies. Dictated by: Dictated on workstation # [id number]
[2018-05-10] MEDS ORDERED: PANTOPRAZOLE 20 MG TABLET (PROTONIX) PO PRN (15:15)
[2018-05-10 16:00] VITALS: BP 116/70
[2018-05-10] MEDS: D5 1/2 NS 1000 ML IV SOLUTION 1,000 ML IV SCH (16:22)
[2018-05-10] MEDS: HYDROcodone/APAP 10 MG/325 MG (LORTAB) TAB PO PRN ×2 (16:51→21:54)
[2018-05-10] MEDS: MELOXICAM 7.5 MG (MOBIC) TABLET PO SCH (17:46)
[2018-05-10] MEDS: ONDANSETRON 4 MG/2 ML (SDV) Z0FRAN IVP PRN (20:07)
[2018-05-10] MEDS: ceFAZolin 2 GM IV Premixed 50 ML IV SCH (20:08)
[2018-05-10 20:56] VITALS: BP 120/68
[2018-05-10] MEDS: DOCUSATE SODIUM 100 MG (COLACE) CAP PO SCH (21:54)
[2018-05-11] VITALS: BP 104/64
[2018-05-11] MEDS: HYDROcodone/APAP 10 MG/325 MG (LORTAB) TAB PO PRN ×5 (01:25→21:34)
[2018-05-11] MEDS: ceFAZolin 2 GM IV Premixed 50 ML IV SCH (03:08)
[2018-05-11] MEDS: morphine INJ 4 MG/ML 1 ML (VIAL/SYRINGE) IV PRN ×2 (03:58→13:34)
[2018-05-11] MEDS: D5 1/2 NS 1000 ML IV SOLUTION 1,000 ML IV SCH (03:58)
--- NOTE | 2018-05-11 03:58 | OPERATIVE REPORT ---
DATE OF SERVICE: 05/10/2018 PREOPERATIVE DIAGNOSIS: Primary osteoarthritis, right knee. POSTOPERATIVE DIAGNOSIS: Primary osteoarthritis, right knee. PROCEDURE: Right total knee arthroplasty. SURGEON: Marcin Gonzalez DO. GLOBAL CLINICAL LEADER: NISHA Henosn. SURGICAL DOWELING MACHINE OPERATOR DUTIES: Martni Hilliard, customer service assistant was utilized throughout the entire procedure for the patient positioning, soft tissue retraction, assistance in placement of total knee implants, wound closure, dressing application and the patient transfer. ANESTHESIA: General with femoral and IPACKS nerve block. ESTIMATED BLOOD LOSS: 150 mL. COMPLICATIONS: None. INDICATIONS AND FINDINGS: The patient is a 77-year-old female seen with chief complaint of progressive right knee pain with a varus deformity. X-rays revealed flattening of the medial femoral condyle with osteophyte formation of the medial femoral condyle and medial tibial plateau and a slight varus deformity, significant degenerative change of the patellofemoral joint were noted. The patient was taken to surgery where a total knee arthroplasty was performed on the right without complication utilizing the [employer] total knee system with a 62.5 mm press fit femoral component, a 67 mm cemented fixed I-beam tibial component, a 31 mm three-pronged all polyethylene cemented thin patellar component with an 11 mm anterior stabilized tibial bearing implant. PROCEDURE IN DETAIL: The patient was seen by anesthesia preoperatively and under ultrasound guidance, a femoral and IPACKS nerve block was performed on the right to decrease postop pain and decrease amount of medication required during a surgical procedure. The patient was transferred to the operating room where general inhalation anesthetic was administered. A well-padded pneumatic tourniquet was placed about the upper aspect of the right thigh. A ChloraPrep and sterile drape of the right lower extremity was performed. The right leg was elevated, exsanguinated and the tourniquet was inflated to 300 mmHg pressure. An anterior longitudinal midline incision was made over the anterior surface of the right knee. The incision was deepened through a medial parapatellar incision. The patella was subluxed laterally. Osteophytes from the distal femur were removed with a bone rongeur. A airplane pilot hole was then drilled in the distal femur and intramedullary lisandro was inserted utilizing a 5 degree cutting angle. A distal femoral cutting guide was assembled and distal femoral osteotomy was completed. A 4-way cutting guide was assembled. Anterior, posterior and chamfer cuts of the distal femur were made. The tibia was then subluxed anteriorly. Remnants of the medial and lateral menisci as well as the anterior cruciate ligament were excised. A airplane pilot hole was then drilled in the proximal tibia. An intramedullary lisandro was inserted, measuring off the exposed bone over the proximal medial tibia. A proximal tibial cutting guide was assembled and a proximal tibial osteotomy was completed. The osteophytes and the patellar reamer removed with a bone rongeur. The posterior aspect of the patella were resected through a cutting guide and drilled through the drill guide. Provisional components were inserted. The knee was cycled through a range of motion. Rotation of the tibial component was noted and marked on the proximal tibia. The tibia was then broached to accept the I-beam stem portion of the implant. The bony surfaces were irrigated extensively with normal saline solution. Bone cement was then mixed. This was then pressurized in the proximal tibia and the tibial component was cemented in place. The femoral component was press fit in place. The knee was taken into full extension with a provisional tibial bearing implant. The patellar component was cemented in place and held with a clamp. Excess of cement was removed. The cement was allowed to set. The tourniquet had been released, hemostasis was obtained with electrocautery. The provisional tibial bearing implant was removed. The knee was additionally irrigated with normal saline solution and an 11 mm anterior stabilized tibial bearing implant was then inserted and locked anteriorly with the locking bar. The knee was cycled through a range of motion with full extension of the knee noted with no instability in mid range or full range flexion. The knee was placed in 90 degrees of flexion. The medial retinaculum was closed with multiple interrupted [id number] sutures of #1 Vicryl reinforced with a running suture of #1 Stratafix. Subcutaneous tissues were closed with 0 and 2-0 Vicryl suture. Skin was closed with stainless steel maira and Adaptic Neosporin bulky dressing was placed about the right knee. The patient was awakened and was transported to postop recovery with anesthesia personnel present in satisfactory condition. Job ID: [id number] DocumentID: [id number] Dictated Date: 05/11/2018 00:05:23 Manager [place] Date: 05/11/2018 03:58:21 Dictated By: MARCIN GONZALEZ DO
[2018-05-11] MEDS: BACLOFEN 10 MG (LIORESAL) TAB PO PRN ×2 (03:59→11:51)
[2018-05-11 04:00] VITALS: BP 113/69
[2018-05-11 04:31] LABS: HEMOGLOBIN 11.9 G/DL (11.5-16.0); MEAN PLATELET VOLUME 10.1 FL (7.4-10.4); RED CELL DISTRIBUTION WIDTH 13.4 % (10.0-14.5)
[2018-05-11 04:54] LABS: ALBUMIN 3.9 GM/DL (3.2-4.5); BILIRUBIN,TOTAL 0.4 MG/DL (0.1-1.0); CALCIUM 9.2 MG/DL (8.5-10.1); CREATININE SERUM 1.06 MG/DL (0.60-1.30); POTASSIUM 3.9 MMOL/L (3.6-5.0); TOTAL PROTEIN 6.1 GM/DL (6.4-8.2)
[2018-05-11] MEDS: MELOXICAM 7.5 MG (MOBIC) TABLET PO SCH ×2 (06:13→17:26)
[2018-05-11] MEDS: KCL 10 MEQ TAB (MICRO K) PO SCH (06:14)
--- NOTE | 2018-05-11 07:59 | Anesthesia-General Post-Op ---
General Patient Condition Mental Status/LOC: Same as Preop Cardiovascular: Satisfactory Nausea/Vomiting: Absent Respiratory: Satisfactory Pain: Controlled Complications: Absent Post Op Complications Complications None Follow Up Care/Instructions Patient Instructions None needed. Anesthesia/Patient Condition Patient Condition Patient is doing well, no complaints, stable vital signs, no apparent adverse anesthesia problems. No complications reported per nursing. ALBARO MOULTON CRNA May 11, 2018 07:58
[2018-05-11 08:00] VITALS: BP 141/60
[2018-05-11] MEDS ORDERED: NON-FORMULARY MEDICATION 1 EA EA (Benazepril HCl 40 MG) PO SCH (09:00)
[2018-05-11] MEDS ORDERED: NON-FORMULARY MEDICATION 1 EA EA (Amlodipine Besylate 5 MG) PO SCH (09:00)
--- NOTE | 2018-05-11 09:03 | Consultation-Hospitalist ---
HPI History of Present Illness: HPI/Chief Complaint Chief complaint: Medical management status post right knee replacement uncomplicated by Dr. Hernandez POD#1 HPI: This is a 77yoWF clinic patient of mine with a past medical history of HTN , HLP and anxiety with chronic vertigo who presents after an uncomplicated right knee replacement after failed conservative treatment. At this current time pt does report feeling dizziness when she got up but she is feeling well, having no nausea or vomiting, and did eat breakfast and urinating well. I checked her medication and pre op labs and I told her I would continue to monitor her from a medical management standpoint. Source: patient, family, RN/MD, old records Exam Limitations: no limitations Date Seen 05/11/18 Attending Physician Jeff Hernandez DO PCP Christina Cortés DO Referring Physician Date of Admission May 10, 2018 at 08:02 Home Medications & Allergies Home Medications Reviewed patient Home Medication Reconciliation performed by pharmacy medication reconciliations audio technician and/or nursing. Patients Allergies have been reviewed. Allergies Allergies Coded Allergies No Known Drug Allergies (Unverified04/05/15) Past Kupbprx-Iurtfi-Nyvihs Hx Past Med/Social Hx: Reviewed Nursing Past Med/Soc Hx, Reviewed and Corrections made Patient Social History Marrital Status: Employed/Student: retired Alcohol Use: Rarely Uses Number of Drinks Today: 0 Recreational Drug Use: No Smoking Status: Never a Smoker Physical Abuse Screen: No Sexual Abuse: No Recent Foreign Travel: No Contact w/other who traveled: No Recent Hopitalizations: No Recent Infectious Disease Expo: No Immunizations Up To Date Date of Pneumonia Vaccine: May 04, 2016 Date of Influenza Vaccine: Dec 20, 2017 Seasonal Allergies Seasonal Allergies: Yes Past Medical History Surgeries: Hysterectomy, Orthopedic Cardiac: High Cholesterol, Hypertension, Syncope Reproductive: No Genitourinary: Bladder Infection Gastrointestinal: Gastroesophageal Reflux, Chronic Constipation Musculoskeletal: Arthritis Skin/Integumentary: Psoriasis History of Blood Disorders: No Family History Not obtainable due to adoption 19 FATHER Review of Systems Constitutional: see HPI, dizziness EENTM: no symptoms reported Respiratory: no symptoms reported Cardiovascular: no symptoms reported Gastrointestinal: no symptoms reported Genitourinary: no symptoms reported Musculoskeletal: joint pain Skin: no symptoms reported Psychiatric/Neurological: No Symptoms Reported All Other Systems Reviewed Negative Unless Noted: Yes Physical Exam Physical Exam Vital Signs Vital Signs - First Documented 05/10/18 05/10/18 08:05 13:55 Temp 97.8 Pulse 98 Resp 16 B/P (MAP) 109/71 Pulse Ox 96 O2 Delivery Nasal Cannula O2 Flow Rate 3.00 Capillary Refill : Height, Weight, BMI Height: 5'4.00" Weight: 174lbs. 0.0oz. 78.450673mt; 29.9 BMI Method: General Appearance: No Apparent Distress, WD/WN Eyes: Bilateral Eye Normal Inspection, Bilateral Eye PERRL HEENT: PERRL/EOMI, Normal ENT Inspection, Pharynx Normal Neck: Full Range of Motion, Normal Inspection, Non Tender, Supple, Carotid Bruit Respiratory: Chest Non Tender, Lungs Clear, Normal Breath Sounds, No Accessory Muscle Use, No Respiratory Distress Cardiovascular: Regular Rate, Rhythm, No Edema, No Gallop, No JVD, No Murmur, Normal Peripheral Pulses Gastrointestinal: Normal Bowel Sounds, No Organomegaly, No Pulsatile Mass, Non Tender, Soft Back: Normal Inspection, No CVA Tenderness, No Vertebral Tenderness Extremity: Normal Capillary Refill, Normal Inspection, Normal Range of Motion ( except right leg), Non Tender, No Calf Tenderness, No Pedal Edema Neurologic/Psychiatric: Alert, Oriented x3, No Motor/Sensory Deficits, Normal Mood/Affect Skin: Normal Color, Warm/Dry Lymphatic: No Adenopathy Results Results/Procedures Labs Laboratory Tests 05/11/18 03:50 Patient resulted labs reviewed. Assessment/Plan Assessment and Plan Assess & Plan/Chief Complaint Assessment: s/p right knee replacement by Dr Hernandez uncomplicated POD # 1 Plan: Home meds DVT Px per protocol Pain management Monitor dizziness Diagnosis/Problems Diagnosis/Problems (1) Status post right knee replacement Status: Acute (2) Hypertension Status: Chronic Qualifiers: Hypertension type: essential hypertension Qualified Codes: I10 - Essential (primary) hypertension (3) Anxiety Status: Chronic (4) Hyperlipidemia Status: Chronic Qualifiers: Hyperlipidemia type: mixed hyperlipidemia Qualified Codes: E78.2 - Mixed hyperlipidemia (5) Vertigo Status: Chronic (6) Primary osteoarthritis of right knee Status: Chronic Clinical Quality Measures DVT/VTE Risk/Contraindication: Risk Factor Score Per Nursin RFS Level Per Nursing on Admit: 4+=Very High CHRISTINA CORTÉS DO May 11, 2018 09:03
[2018-05-11] MEDS: ENOXAPARIN 40 MG/0.4 ML (LOVENOX) SYR SC SCH (09:06)
[2018-05-11] MEDS: eZETimibe 10 MG (ZETIA) TABLET PO SCH (09:07)
[2018-05-11] MEDS: lisINopril 40 MG (PRINIVIL) TABLET PO SCH (09:07)
[2018-05-11] MEDS: DOCUSATE SODIUM 100 MG (COLACE) CAP PO SCH ×2 (09:07→21:34)
[2018-05-11] MEDS: amLODIPine 5 MG (NORVASC) TAB PO SCH (09:07)
[2018-05-11] MEDS: ASPIRIN E.C. 81 MG (ECOTRIN) TAB PO SCH (09:07)
--- NOTE | 2018-05-11 09:49 | Physical Therapy Evaluation ---
PT Evaluation-General Medical Diagnosis Admission Date May 10, 2018 at 08:02 Medical Diagnosis: right TKA Onset Date: May 10, 2018 Therapy Diagnosis Therapy Diagnosis: Decreased ROM, decreased mobility Height/Weight Height (Feet): 5 Height (Inches): 4.00 Weight (Pounds): 174 Weight (Ounces): 0.0 Precautions Precautions/Isolations: Fall Prevention, Standard Precautions Weight Bear Status Right Lower Extremity: Right Full Weight Bearing Left Lower Extremity: Left Full Weight Bearing Referral Physician: Jeff Hernandez DO Reason for Referral: Evaluation/Treatment Medical History Additional Medical History Pt reports she has dizziness spells that started 5 years ago. Reviewed History: Yes Social History Home: Multilevel Current Living Status: Spouse Entry Into Home: Ramp, Stairs With Railing PT Steps Into Home: 4 Prior/Core FIM Prior Level of Function Therapy Code Descriptions/Definitions Functional [place] Measure: 0=Not Assessed/NA 4=Minimal Assistance 1=Total Assistance 5=Supervision or Setup 2=Maximal Assistance 6=Modified [place] 3=Moderate Assistance 7=Complete [place] Therapy Quality Codes: 6 Independent with activity with or without an assistive device 5 Patient requires set up or clean up by helper. Patient completes activity by themselves 4 Supervision or touching assist (CGA). [place] provide cues , steadying assist 3 The helper provides less than half the effort to complete the activity 2 The helper provides more than half the effort to complete the activity 1 Dependent. The helper does all the effort to complete an activity 7 Patient refused to complete or attempt activity 9 The patient did not perform the activity before the current illness or injury 88 Not attempted due to Medical conditions or safety concerns Functional Abilities and Goals: Independent: Patient completed the activities by him/herself, with or without an assistive device, with no assistance from a helper. Needed Some Help: Patient needed partial assistance from another person to complete activities. Dependent: A helper completed the activities for the patient. Unknown: Not Applicable: Bed Mobility: 7 Transfers (B,C,W/C) (FIM): 7 Gait: 7 Stairs: 7 Indoor Mobility (Ambulation): Independent Stairs: Independent Prior Devices Use: None PT Evaluation-Current Subjective Pt was in bed with family in room and agrees to PT. Pain Numeric Pain Scale: 7 Location: Right Location Body Site: Knee Pt/Family Goals Pt to return home with spouse. Objective Patient Orientation: Person, Place, Situation Attachments: SCD's, Oxygen (.5 L), IV ROM/Strength ROM Lower Extremities LLE WNL; RLE flex 60, ext +5 Strength Lower Extremities NT Integumentary/Posture Bowel Incontinence: No Bladder Incontinence: No Neuromuscular (Tone, Coordination, Reflexes) NT Sensory Vision: Functional Hearing: Functional Transfers Therapy Code Descriptions/Definitions Functional [place] Measure: 0=Not Assessed/NA 4=Minimal Assistance 1=Total Assistance 5=Supervision or Setup 2=Maximal Assistance 6=Modified [place] 3=Moderate Assistance 7=Complete [place] Transfers (B, C, W/C) (FIM): 4 Scootin Rollin Supine to/from Sit: 5 Sit to/from Stand: 4 Gait Mode of Locomotion: Walk Anticipated Mode of Locomotion: Walk Gait (FIM): 2 Distance (FIM): 9=416-58 ft Distance: 120' Gait Level of Assist: 4 Gait Persons Needed: 1 Gait Assistive Device: FWW Balance Sitting Static: Good Sitting Dynamic: Good Standing Static: Good Standing Dynamic: Good Assessment/Needs Pt able to perform supine LE ex (AP, SAQ, HS, QS, and SLR) x10 reps. Pt required min A with RLE. Pt able to perform bed mobility SBA. Pt able to sit<> stand with CGA to FWW. Pt amb 120' with FWW and O2 1L with antalgic gait and step to gait pattern. Pt returned to room and is in bed. Pt reports she got very dizzy during amb and started feeling sick. Pt is in bed and has CPM on at flex 54 and ext -2. Pt has all needs met and notified nurse of pt request for pain medication. Rehab Potential: Good PT Short Term Goals Short Term Goals Time Frame: May 18, 2018 Transfers (B,C,W/C) (FIM): 5 Gait (FIM): 5 Distance (FIM): 3=150 ft Gait Distance Comment: 150' Gait Level of Assist: 5 Gait Assistive Device: FWW Stairs (FIM): 2 # of Steps: 4 Stairs Level of Assist: 4 PT Plan Problem List Problem List: Activity Tolerance, Functional Strength, Safety, Balance, Gait, Transfer, Bed Mobility, ROM Treatment/Plan Treatment Plan: Continue Plan of Care Treatment Plan: Bed Mobility, Education, Functional Activity Hero, Functional Strength, Gait, Safety, Therapeutic Exercise, Transfers Treatment Duration: May 18, 2018 Frequency: 11 times per week Estimated Hrs Per Day: .25 hour per day Patient and/or Family Agrees t: Yes Safety Risks/Education Patient Education: Gait Training, Transfer Techniques, Correct Positioning, Safety Issues Teaching Recipient: Patient, Family Teaching Methods: Demonstration, Discussion Response to Teaching: Reinforcement Needed Discharge Recommendations Plan Patient will perform bed mobility and transfer training, balance and endurance training, functional strengthening, stair training, gait training, and education , to improve functional mobility and independence at home. Therapy D/C Recommendations: Home w/ Family Support, Physical Therapy Home Care Equpiment Recommendations-D/C: Front Wheeled Walker Time/GCodes Time In: 0819 Time Out: 903 Total Billed Treatment Time: 44 Total Billed Treatment 1 visit EVL 10 min FA 14 min EX 20 min JEREMIAH SCHMIDT PT May 11, 2018 09:49
--- NOTE | 2018-05-11 10:33 | NUR ---
CM/SS responded to consult. Patient's CPM will be delivered this day from [facility]. Patient will need HHC set up and FWW at discharge.
--- NOTE | 2018-05-11 11:07 | Occupational Therapy Eval ---
OT Evaluation-General/PLF Medical Diagnosis Admission Date May 10, 2018 at 08:02 Medical Diagnosis: right TKA Onset Date: May 10, 2018 Therapy Diagnosis Therapy Diagnosis: decreased self care Height/Weight Height (Feet): 5 Height (Inches): 4.00 Weight (Pounds): 174 Weight (Ounces): 0.0 Precautions Precautions/Isolations: Fall Prevention, Standard Precautions Referral Physician: Jeff Hernandez DO Medical History Pertinent Medical History: Arthritis, GERD, HTN Additional Medical History high cholesterol, psoriasis Current History Pt s/p elective right TKA Social History Home: Multilevel Current Living Status: Spouse Entry Into Home: Ramp, Stairs With Railing Steps Into Home: 4 ADL-Prior Level of Function Therapy Code Descriptions/Definitions Functional [place] Measure: 0=Not Assessed/NA 4=Minimal Assistance 1=Total Assistance 5=Supervision or Setup 2=Maximal Assistance 6=Modified [place] 3=Moderate Assistance 7=Complete [place] Therapy Quality Codes: 6 Independent with activity with or without an assistive device 5 Patient requires set up or clean up by helper. Patient completes activity by themselves 4 Supervision or touching assist (CGA). [place] provide cues , steadying assist 3 The helper provides less than half the effort to complete the activity 2 The helper provides more than half the effort to complete the activity 1 Dependent. The helper does all the effort to complete an activity 7 Patient refused to complete or attempt activity 9 The patient did not perform the activity before the current illness or injury 88 Not attempted due to Medical conditions or safety concerns Functional Abilities and Goals: Independent: Patient completed the activities by him/herself, with or without an assistive device, with no assistance from a helper. Needed Some Help: Patient needed partial assistance from another person to complete activities. Dependent: A helper completed the activities for the patient. Unknown: Not Applicable: ADL PLOF Comments Pt reports being independent prior to surgery. Did not use any assistive devices. Self Care: Independent DME/Equipment: Grab Bars, Tall Toilet OT Current Status Subjective Pt sitting on BSC when therapist arrived, requests to return to bed. Pt reports 8/10 pain in right knee. Pt states she is having some dizziness, but that she has been dealing with this for some time. Mental Status/Objective Patient Orientation: Person, Place, Situation Attachments: IV, Oxygen ADL-Treatment ADL-Current Pt able to complete toileting hygiene. Sit to stand from toilet with min assist. Transfer to EOB with min assist and cues for safety using FWW. Sit to supine with minimal assistance for right LE. Pt resting in bed with needs met and family present after session. Therapy Code Descriptions/Definitions Functional [place] Measure: 0=Not Assessed/NA 4=Minimal Assistance 1=Total Assistance 5=Supervision or Setup 2=Maximal Assistance 6=Modified [place] 3=Moderate Assistance 7=Complete [place] Therapy Quality Codes: 6 Independent with activity with or without an assistive device 5 Patient requires set up or clean up by helper. Patient completes activity by themselves 4 Supervision or touching assist (CGA). [place] provide cues , steadying assist 3 The helper provides less than half the effort to complete the activity 2 The helper provides more than half the effort to complete the activity 1 Dependent. The helper does all the effort to complete an activity 7 Patient refused to complete or attempt activity 9 The patient did not perform the activity before the current illness or injury 88 Not attempted due to Medical conditions or safety concerns Toileting (FIM): 5 Toilet/Commode Transfer (FIM): 4 Education OT Patient Education: Rehab process Teaching Recipient: Patient Teaching Methods: Discussion Response to Teaching: Verbalize Understanding OT Short Term Goals Short Term Goals Transfers (B,C,W/C) (FIM): 5 1=Demonstrate adherence to instructed precautions during ADL tasks. 2=Patient will verbalize/demonstrate understanding of assistive devices/ modifications for ADL. 3=Patient will improve strength/tolerance for activity to enable patient to perform ADL's. OT Safety Deposit Clerk Goals [facility] Goals Time Frame: May 18, 2018 Grooming(FIM): 6 Bathing(FIM): 5 Upper Body Dressing(FIM): 6 Lower Body Dressing(FIM): 5 Toileting(FIM): 6 Toilet/Commode Transfer(FIM): 5 1=Demonstrate adherence to instructed precautions during ADL tasks. 2=Patient will verbalize/demonstrate understanding of assistive devices/ modifications for ADL. 3=Patient will improve strength/tolerance for activity to enable patient to perform ADL's. OT Education/Plan Problem List/Assessment Assessment: Dependent Transfers, Impaired Self-Care Skills Pt to benefit from skilled OT intervention for ADL training, transfers, and safety education to increase level of independence and allow safe discharge plan. Discharge Recommendations Plan/Recommendations: Continue POC Treatment Plan/Plan of Care Treatment,Training & Education: Yes Patient would benefit from OT for education, treatment and training to promote independence in ADL's, mobility, safety and/or upper extremity function for ADL' s. Plan of Care: ADL Retraining, Functional Mobility, UE Funct Exercise/Act Treatment Duration: May 18, 2018 Frequency: 5 times per week Estimated Hrs Per Day: .25 hour per day Rehab Potential: Good Time/GCodes Start Time: 10:38 Stop Time: 10:51 Total Time Billed (hr/min): 13 Billed Treatment Time 1 visit, [facility](13minutes) ESCOBAR CUNHA OT May 11, 2018 11:07
[2018-05-11] MEDS: NS IV 1000 ML 1,000 ML IV SCH (11:51)
--- NOTE | 2018-05-11 12:05 | Progress Note (SOAP) ---
Subjective Date Seen by a Provider: May 11, 2018 Time Seen by a Provider: 12:02 Subjective/Events-last exam s/p right TKA. Doing well, no complaints. Ambulated over 50ft this AM. Objective Exam Vital Signs Date Time Temp Pulse Resp B/P (MAP) Pulse Ox O2 Delivery O2 Flow Rate FiO2 05/11/18 09:00 98 Nasal Cannula 3.00 05/11/18 08:08 Nasal Cannula 3.00 05/11/18 08:00 70 141/60 (87) 1.00 05/11/18 04:00 98.6 71 18 113/69 (84) 98 Nasal Cannula 2.00 05/11/18 00:00 98.4 71 18 104/64 (77) 97 Nasal Cannula 2.00 05/10/18 21:00 Nasal Cannula 3.00 05/10/18 20:56 98.8 76 17 120/68 (85) 98 Room Air 05/10/18 19:32 Nasal Cannula 3.00 05/10/18 16:00 98.6 84 17 116/70 (85) 97 Room Air 05/10/18 13:55 Nasal Cannula 3.00 I & O 05/11/18 07:00 Intake Total 1730 ml Balance 1730 ml Capillary Refill : General Appearance: No Apparent Distress Extremity: Normal Capillary Refill, Normal Inspection, No Calf Tenderness Neurologic/Psychiatric: Alert, Oriented x3, No Motor/Sensory Deficits Skin: Normal Color, Warm/Dry Results Lab Laboratory Tests 05/11/18 03:50: White Blood Count 11.0, Red Blood Count 4.01L, Hemoglobin 11.9, Hematocrit 36, Mean Corpuscular Volume 90, Mean Corpuscular Hemoglobin 30, Mean Corpuscular Hemoglobin Concent 33, Red Cell Distribution Width 13.4, Platelet Count 237, Mean Platelet Volume 10.1, Sodium Level 133L, Potassium Level 3.9, Chloride Level 101, Carbon Dioxide Level 23, Anion Gap 9, Blood Urea Nitrogen 23H, Creatinine 1.06, Estimat Glomerular Filtration Rate 50, BUN/Creatinine Ratio 22 , Glucose Level 103, Calcium Level 9.2, Corrected Calcium 9.3, Total Bilirubin 0.4, Aspartate Amino Transf (AST/SGOT) 27, Alanine Aminotransferase (ALT/SGPT) 21, Alkaline Phosphatase 39L, Total Protein 6.1L, Albumin 3.9 Assessment/Plan Assessment/Plan Assess & Plan/Chief Complaint A: s/p right TKA P: Continue current treatment, Possible discharge to home with [facility] tomorrow afternoon or Wednesday morning. Therapy will be 5x/week x 2 weeks. Clinical Quality Measures DVT/VTE Risk/Contraindication: Risk Factor Score Per Nursin RFS Level Per Nursing on Admit: 4+=Very High JOVANA NEWMAN APRN May 11, 2018 12:05
--- NOTE | 2018-05-11 12:08 | NUR ---
prior to a.m. medications b/p was 141/60 pulse was 70 bpm.
--- NOTE | 2018-05-11 14:18 | Physical Therapy Daily Note ---
PT Daily Note-Current Subjective Pt. up in recliner and initially states she is too dizzy to think of getting up to walk. Pt. then agrees to sitting exercises and back to bed (6 ft walk). After getting in bed with polar pack on and CPM almost initiated pt states she feels she should really get up and walk. This CHILD CARE GROUP LEADER encourages sitting then standing to reassess the dizziness before walking. Pt. states she feels a little better in sit and stand and wanted to walk. No c/o pain at all , just fogginess and dizziness. Pain Location: No Pain Reported Appearance groggy Mental Status Patient Orientation: Person, Place, Time, Situation Attachments: Oxygen (.5L), IV Transfers Therapy Code Descriptions/Definitions Functional [place] Measure: 0=Not Assessed/NA 4=Minimal Assistance 1=Total Assistance 5=Supervision or Setup 2=Maximal Assistance 6=Modified [place] 3=Moderate Assistance 7=Complete [place] Therapy Quality Codes: 6 Independent with activity with or without an assistive device 5 Patient requires set up or clean up by helper. Patient completes activity by themselves 4 Supervision or touching assist (CGA). [place] provide cues , steadying assist 3 The helper provides less than half the effort to complete the activity 2 The helper provides more than half the effort to complete the activity 1 Dependent. The helper does all the effort to complete an activity 7 Patient refused to complete or attempt activity 9 The patient did not perform the activity before the current illness or injury 88 Not attempted due to Medical conditions or safety concerns Transfers (B, C, W/C) (FIM): 5 Scootin Rollin Supine to/from Sit: 5 Sit to/from Stand: 5 Bed to/from Chair: 5 pt. needs only asssit for O2 and IV tubing safety. Pt. indep to lift RLE in to bed and out, indep SLR Weight Bearing Right Lower Extremity: Right Full Weight Bearing Left Lower Extremity: Left Full Weight Bearing Gait Training Gait (FIM): 3 Distance (FIM): 3=150 ft (200) Gait Level of Assist: 4 Gait Persons Needed: 1 Gait Assistive Device: FWW CGA , equal reciprocal steps min antalgia. assist for IV and O2 only Exercises Supine Ex: Ankle pumps, Quad Set, Heel Slides, Short Arc Quads, Straight leg raise Supine Reps: 15 Seated Therapy Exercises: Ankle pumps, Sit to stand, Long arc quads Seated Reps: 15 Treatments CPM and polar pack applied after rx Assessment Current Status: Good Progress progressing well, PT Short Term Goals Short Term Goals Time Frame: May 18, 2018 Transfers (B,C,W/C) (FIM): 5 Gait (FIM): 5 Distance (FIM): 3=150 ft Gait Distance Comment: 150' Gait Level of Assist: 5 Gait Assistive Device: FWW Stairs (FIM): 2 # of Steps: 4 Stairs Level of Assist: 4 PT Plan Treatment/Plan Treatment Plan: Continue Plan of Care Treatment Plan: Bed Mobility, Education, Functional Activity Hero, Functional Strength, Gait, Safety, Therapeutic Exercise, Transfers Treatment Duration: May 18, 2018 Frequency: 11 times per week Estimated Hrs Per Day: .25 hour per day Patient and/or Family Agrees t: Yes Safety Risks/Education Patient Education: Gait Training, Transfer Techniques, Correct Positioning, Disease Process, Safety Issues Teaching Recipient: Patient, Family Teaching Methods: Demonstration, Discussion Response to Teaching: Verbalize Understanding, Return Demonstration, Reinforcement Needed Time/GCodes Time In: 1330 Time Out: 1410 Total Billed Treatment Time: 35 Total Billed Treatment 1,EX15m,GT15m,FA10m G Codes Necessary: ALYCIA Delgadillo CHILD CARE GROUP LEADER May 11, 2018 14:18
[2018-05-11] MEDS: SENNA W/DOCUSATE (SENOKOT S) TABLET PO SCH (21:34)
[2018-05-11] MEDS ORDERED: PHENAZOPYRIDINE 100 MG (PYRIDIUM) TABLET ONE (23:28)
[2018-05-12 00:31] VITALS: BP 122/57
[2018-05-12] MEDS: HYDROcodone/APAP 10 MG/325 MG (LORTAB) TAB PO PRN ×2 (01:50→05:48)
[2018-05-12] MEDS: morphine INJ 4 MG/ML 1 ML (VIAL/SYRINGE) IV PRN (05:00)
[2018-05-12] MEDS: ONDANSETRON 4 MG/2 ML (SDV) Z0FRAN IVP PRN (05:06)
[2018-05-12] MEDS: NS IV 1000 ML 1,000 ML IV SCH ×2 (05:07→22:19)
--- NOTE | 2018-05-12 05:17 | Progress Note-Hospitalist ---
Subjective HPI/CC On Admission Date Seen by Provider: May 12, 2018 Time Seen by Provider: 09:00 Chief complaint: Medical management status post right knee replacement uncomplicated by Dr. Hernandez POD#1 HPI: This is a 77yoWF clinic patient of mine with a past medical history of HTN , HLP and anxiety with chronic vertigo who presents after an uncomplicated right knee replacement after failed conservative treatment. At this current time pt does report feeling dizziness when she got up but she is feeling well, having no nausea or vomiting, and did eat breakfast and urinating well. I checked her medication and pre op labs and I told her I would continue to monitor her from a medical management standpoint. Subjective/Events-last exam Pt is fairly weak Not going home today because of dizziness and weakness Nausea with Percocet so we started hydrocodone at a 10/325 dose and since she takes 5/325 at home and tolerates this well Labs reviewed everything normal Had urinary retention yesterday so started Pyridium after urine obtained for urine culture Overall pain is fairly controlled at this time but just feels very weak Review of Systems General: Fatigue, Other (dizziness) Musculoskeletal: leg pain Neurological: Weakness Objective Exam Vital Signs Vital Signs Date Time Temp Pulse Resp B/P (MAP) Pulse Ox O2 Delivery O2 Flow Rate FiO2 05/12/18 13:57 98.1 05/12/18 09:00 92 Nasal Cannula 1.00 05/12/18 07:48 75 18 153/67 (95) Capillary Refill : General Appearance: No Apparent Distress, WD/WN, Other (fatigued) HEENT: PERRL/EOMI, Normal ENT Inspection, Pharynx Normal Neck: Full Range of Motion, Normal Inspection, Non Tender, Supple, Carotid Bruit Respiratory: Chest Non Tender, Lungs Clear, Normal Breath Sounds, No Accessory Muscle Use, No Respiratory Distress Cardiovascular: Regular Rate, Rhythm, No Edema, No Gallop, No JVD, No Murmur, Normal Peripheral Pulses Gastrointestinal: Normal Bowel Sounds, No Organomegaly, No Pulsatile Mass, Non Tender, Soft Back: Normal Inspection, No CVA Tenderness, No Vertebral Tenderness Extremity: Normal Capillary Refill, Normal Inspection, Normal Range of Motion ( except right leg), Non Tender, No Calf Tenderness, No Pedal Edema Neurologic/Psychiatric: Alert, Oriented x3, No Motor/Sensory Deficits, Normal Mood/Affect Skin: Normal Color, Warm/Dry Lymphatic: No Adenopathy Results/Procedures Lab Laboratory Tests 05/12/18 06:45 Patient resulted labs reviewed. Assessment/Plan Assessment and Plan Assess & Plan/Chief Complaint Assessment: s/p right knee replacement by Dr Hernandez uncomplicated POD # 2 Plan: Home meds DVT Px per protocol Pain management Monitor dizziness Change pain meds to Lortab due to nausea from percocet Trial of Toradol Diagnosis/Problems Diagnosis/Problems (1) Status post right knee replacement Status: Acute (2) Hypertension Status: Chronic Qualifiers: Hypertension type: essential hypertension Qualified Codes: I10 - Essential (primary) hypertension (3) Anxiety Status: Chronic (4) Hyperlipidemia Status: Chronic Qualifiers: Hyperlipidemia type: mixed hyperlipidemia Qualified Codes: E78.2 - Mixed hyperlipidemia (5) Vertigo Status: Chronic (6) Primary osteoarthritis of right knee Status: Chronic Clinical Quality Measures DVT/VTE Risk/Contraindication: Risk Factor Score Per Nursin RFS Level Per Nursing on Admit: 4+=Very High SILVERIO JACK DO May 12, 2018 05:17
[2018-05-12] MEDS: MELOXICAM 7.5 MG (MOBIC) TABLET PO SCH ×2 (05:48→17:25)
[2018-05-12] MEDS: KCL 10 MEQ TAB (MICRO K) PO SCH (05:49)
[2018-05-12 06:58] LABS: HEMOGLOBIN 11.3 G/DL (11.5-16.0); MEAN PLATELET VOLUME 9.8 FL (7.4-10.4); RED CELL DISTRIBUTION WIDTH 13.4 % (10.0-14.5); WHITE BLOOD COUNT 8.4 10^3/uL (4.3-11.0)
--- NOTE | 2018-05-12 06:59 | Progress Note (SOAP) ---
Subjective Date Seen by a Provider: May 12, 2018 Time Seen by a Provider: 06:56 Subjective/Events-last exam POD2 s/p right TKA, Currently complains of nausea and dizziness. Otherwise she is doing fairly well. ambulating well with therapy, overall fair to poor pain control Objective Exam Vital Signs Date Time Temp Pulse Resp B/P (MAP) Pulse Ox O2 Delivery O2 Flow Rate FiO2 05/12/18 00:31 98.4 76 18 122/57 (78) 92 Nasal Cannula 1.00 05/11/18 21:00 92 Nasal Cannula 1.00 05/11/18 09:00 98 Nasal Cannula 3.00 05/11/18 08:08 Nasal Cannula 3.00 05/11/18 08:00 70 141/60 (87) 1.00 I & O 05/12/18 07:00 Intake Total 4060 ml Output Total 1250 ml Balance 2810 ml Capillary Refill : General Appearance: No Apparent Distress Extremity: Normal Capillary Refill, Normal Inspection, No Calf Tenderness, No Pedal Edema Neurologic/Psychiatric: Alert, Oriented x3, No Motor/Sensory Deficits, Normal Mood/Affect Skin: Normal Color, Warm/Dry (dressing right knee CDI) Results Lab Laboratory Tests 05/12/18 06:45: Assessment/Plan Assessment/Plan Assess & Plan/Chief Complaint A: s/p right TKA, PONV P: Continue current treatment, morphine and norco DC'd, start percocet and scopolamine patch, Discharge tomorrow with [facility] Clinical Quality Measures DVT/VTE Risk/Contraindication: Risk Factor Score Per Nursin RFS Level Per Nursing on Admit: 4+=Very High JOVANA NEWMAN APRN May 12, 2018 06:59
[2018-05-12] MEDS ORDERED: SCOPOLAMINE 1.5 MG (TRANSDERM-SCOP) PATCH TD ONE (07:00)
[2018-05-12 07:19] LABS: BUN/CREATININE RATIO 21; CALCIUM 9.7 MG/DL (8.5-10.1); CARBON DIOXIDE 24 MMOL/L (21-32); CHLORIDE 105 MMOL/L (98-107); GFR ESTIMATED > 60; GLUCOSE 113 MG/DL (70-105); SODIUM 137 MMOL/L (135-145)
[2018-05-12 07:48] VITALS: BP 153/67
[2018-05-12] MEDS ORDERED: HYDROcodone/APAP 10 MG/325 MG (LORTAB) TAB PO PRN (09:30)
[2018-05-12] MEDS: ENOXAPARIN 40 MG/0.4 ML (LOVENOX) SYR SC SCH (09:49)
[2018-05-12] MEDS: ASPIRIN E.C. 81 MG (ECOTRIN) TAB PO SCH (09:50)
[2018-05-12] MEDS: DOCUSATE SODIUM 100 MG (COLACE) CAP PO SCH ×2 (09:50→20:33)
[2018-05-12] MEDS: PHENAZOPYRIDINE 100 MG (PYRIDIUM) TABLET PO SCH ×3 (09:50→17:25)
[2018-05-12] MEDS: amLODIPine 5 MG (NORVASC) TAB PO SCH (09:50)
[2018-05-12] MEDS: SENNA W/DOCUSATE (SENOKOT S) TABLET PO SCH ×2 (09:50→20:34)
[2018-05-12] MEDS: lisINopril 40 MG (PRINIVIL) TABLET PO SCH (09:50)
[2018-05-12] MEDS: eZETimibe 10 MG (ZETIA) TABLET PO SCH (09:50)
--- NOTE | 2018-05-12 10:39 | Physical Therapy Daily Note ---
PT Daily Note-Current Subjective Pt is in bed and agrees to PT. Reports that she is still very nauseous and dizzy. Dr. Cortés in room and is aware of pt status. Pain Numeric Pain Scale: 5-Moderate Pain Location: Right Location Body Site: Knee Mental Status Patient Orientation: Person, Place, Situation, Normal For Age Attachments: SCD's, Oxygen (1L), Polar Pack, IV Transfers Therapy Code Descriptions/Definitions Functional [place] Measure: 0=Not Assessed/NA 4=Minimal Assistance 1=Total Assistance 5=Supervision or Setup 2=Maximal Assistance 6=Modified [place] 3=Moderate Assistance 7=Complete [place] Therapy Quality Codes: 6 Independent with activity with or without an assistive device 5 Patient requires set up or clean up by helper. Patient completes activity by themselves 4 Supervision or touching assist (CGA). [place] provide cues , steadying assist 3 The helper provides less than half the effort to complete the activity 2 The helper provides more than half the effort to complete the activity 1 Dependent. The helper does all the effort to complete an activity 7 Patient refused to complete or attempt activity 9 The patient did not perform the activity before the current illness or injury 88 Not attempted due to Medical conditions or safety concerns Transfers (B, C, W/C) (FIM): 4 Scootin Supine to/from Sit: 4 Sit to/from Stand: 4 Weight Bearing Right Lower Extremity: Right Full Weight Bearing Left Lower Extremity: Left Full Weight Bearing Gait Training Gait (FIM): 2 Distance (FIM): 4=098-54 ft Distance: 125' Gait Level of Assist: 4 Gait Persons Needed: 1 Gait Assistive Device: FWW Exercises Supine Ex: Ankle pumps, Quad Set, Heel Slides, Short Arc Quads, Straight leg raise Supine Reps: 10 Assessment Current Status: Fair Progress Pt is able to perform supine LE ex and c/o of getting sick to her stomach. Pt reports being very dizzy while in bed. Pt is able to get to EOB with min A. Pt had no nystagmus. Pt required increase time to perform activity due to an increase in dizziness. Pt able to transfer from EOB to FWW and into bathroom. Pt was SBA with bathroom skills. Pt amb 125' with FWW and CGA for safety. Pt returned to room and is in recliner with all needs met. PT Short Term Goals Short Term Goals Time Frame: May 18, 2018 Transfers (B,C,W/C) (FIM): 5 Gait (FIM): 5 Distance (FIM): 3=150 ft Gait Distance Comment: 150' Gait Level of Assist: 5 Gait Assistive Device: FWW Stairs (FIM): 2 # of Steps: 4 Stairs Level of Assist: 4 PT Plan Problem List Problem List: Activity Tolerance, Functional Strength, Safety, Balance, Gait, Transfer, Bed Mobility, ROM Treatment/Plan Treatment Plan: Continue Plan of Care Treatment Plan: Bed Mobility, Education, Functional Activity Hero, Functional Strength, Gait, Safety, Therapeutic Exercise, Transfers Treatment Duration: May 18, 2018 Frequency: 11 times per week Estimated Hrs Per Day: .25 hour per day Patient and/or Family Agrees t: Yes Time/GCodes Time In: 853 Time Out: 925 Total Billed Treatment Time: 32 Total Billed Treatment 1 visit EX 15 min FA 17 min ALISSA LIN PT May 12, 2018 10:39
[2018-05-12] MEDS ORDERED: KETOROLAC 15 MG/ML VIAL IVP PRN (11:45)
[2018-05-12] MEDS ORDERED: KETOROLAC 15 MG/ML VIAL ONE (11:48)
[2018-05-12] MEDS: oxyCODONE/APAP 5/325MG (PERCOCET 5) TABLET PO PRN ×2 (12:57→20:34)
--- NOTE | 2018-05-12 13:32 | Occupational Ther Daily Note ---
OT Current Status-Daily Note Subjective Pt alert, sitting in recliner. Pt agrees to therapy. present in room. Pt c/o nausea and dizziness. Mental Status/Objective Patient Orientation: Person, Place, Time, Situation Therapy Code Descriptions/Definitions Functional [place] Measure: 0=Not Assessed/NA 4=Minimal Assistance 1=Total Assistance 5=Supervision or Setup 2=Maximal Assistance 6=Modified [place] 3=Moderate Assistance 7=Complete [place] Attachments: IV, Oxygen ADL-Treatment Pt agrees to sponge bath. After set up, pt able to reach upper body, callum area , buttocks and upper legs to bath. Pt then requested to use bathroom. Transferred to toilet and cleansed self with SBA using FWW and grabbars. Pt was able to go from EOB to supine by self using bedrail. Pt able to reach feet to straighten socks. PT took over care of pt. All needs met in room. Bathing (FIM): 4 Toileting (FIM): 5 Toilet/Commode Transfer (FIM): 5 OT Short Term Goals Short Term Goals Transfers (B,C,W/C) (FIM): 5 1=Demonstrate adherence to instructed precautions during ADL tasks. 2=Patient will verbalize/demonstrate understanding of assistive devices/ modifications for ADL. 3=Patient will improve strength/tolerance for activity to enable patient to perform ADL's. OT [place] Goals Table Hand Goals Time Frame: May 18, 2018 Grooming(FIM): 6 Bathing(FIM): 5 Upper Body Dressing(FIM): 6 Lower Body Dressing(FIM): 5 Toileting(FIM): 6 Toilet/Commode Transfer(FIM): 5 1=Demonstrate adherence to instructed precautions during ADL tasks. 2=Patient will verbalize/demonstrate understanding of assistive devices/ modifications for ADL. 3=Patient will improve strength/tolerance for activity to enable patient to perform ADL's. OT Education/Plan Problem List/Assessment Pt to benefit from skilled OT intervention for ADL training, transfers, and safety education to increase level of independence and allow safe discharge plan. Discharge Recommendations Plan/Recommendations: Continue POC Treatment Plan/Plan of Care Patient would benefit from OT for education, treatment and training to promote independence in ADL's, mobility, safety and/or upper extremity function for ADL' s. Plan of Care: ADL Retraining, Functional Mobility, UE Funct Exercise/Act Treatment Duration: May 18, 2018 Frequency: 5 times per week Estimated Hrs Per Day: .25 hour per day Rehab Potential: Good Time/GCodes Start Time: 13:00 Stop Time: 13:25 Total Time Billed (hr/min): 25 Billed Treatment Time 1 visit-ADL 2 (25 min) MARITZA HOOKER May 12, 2018 13:32
--- NOTE | 2018-05-12 14:37 | Physical Therapy Daily Note ---
PT Daily Note-Current Subjective Pt in bed and just finished with OT, agrees to PT. Pain Numeric Pain Scale: 10-Worst Possible Pain Location: Right Location Body Site: Knee Mental Status Patient Orientation: Person, Place, Situation, Normal For Age Attachments: SCD's, Polar Pack, IV Transfers Therapy Code Descriptions/Definitions Functional [place] Measure: 0=Not Assessed/NA 4=Minimal Assistance 1=Total Assistance 5=Supervision or Setup 2=Maximal Assistance 6=Modified [place] 3=Moderate Assistance 7=Complete [place] Therapy Quality Codes: 6 Independent with activity with or without an assistive device 5 Patient requires set up or clean up by helper. Patient completes activity by themselves 4 Supervision or touching assist (CGA). [place] provide cues , steadying assist 3 The helper provides less than half the effort to complete the activity 2 The helper provides more than half the effort to complete the activity 1 Dependent. The helper does all the effort to complete an activity 7 Patient refused to complete or attempt activity 9 The patient did not perform the activity before the current illness or injury 88 Not attempted due to Medical conditions or safety concerns Transfers (B, C, W/C) (FIM): 4 Scootin Supine to/from Sit: 5 Sit to/from Stand: 4 Weight Bearing Right Lower Extremity: Right Full Weight Bearing Left Lower Extremity: Left Full Weight Bearing Gait Training Gait (FIM): 5 Distance (FIM): 3=150 ft Distance: 300' Gait Level of Assist: 5 Gait Persons Needed: 1 Gait Assistive Device: FWW Exercises Supine Ex: Ankle pumps, Quad Set, Heel Slides, Short Arc Quads, Straight leg raise Supine Reps: 10 Assessment Current Status: Good Progress Pt able to perform bed mobility SBA and sit<>stand transfers is CGA. Pt able to amb SBA 300' with FWW. Pt returned to room and performed supine LE ex in bed. Pt is now on CPM at 60 flex and -2 ext. Pt has all needs met and family is in room. PT Short Term Goals Short Term Goals Time Frame: May 18, 2018 Transfers (B,C,W/C) (FIM): 5 Gait (FIM): 5 Distance (FIM): 3=150 ft Gait Distance Comment: 150' Gait Level of Assist: 5 Gait Assistive Device: FWW Stairs (FIM): 2 # of Steps: 4 Stairs Level of Assist: 4 PT Plan Problem List Problem List: Activity Tolerance, Functional Strength, Safety, Balance, Gait, Transfer, Bed Mobility, ROM Treatment/Plan Treatment Plan: Continue Plan of Care Treatment Plan: Bed Mobility, Education, Functional Activity Hero, Functional Strength, Gait, Safety, Therapeutic Exercise, Transfers Treatment Duration: May 18, 2018 Frequency: 11 times per week Estimated Hrs Per Day: .25 hour per day Patient and/or Family Agrees t: Yes Time/GCodes Time In: 1326 Time Out: 1349 Total Billed Treatment Time: 23 Total Billed Treatment 1 visit GT 13 min EX 10 min ALISSA LIN PT May 12, 2018 14:37
[2018-05-12 16:10] VITALS: BP 142/65
[2018-05-12 23:55] VITALS: BP 121/59
[2018-05-13] MEDS: oxyCODONE/APAP 5/325MG (PERCOCET 5) TABLET PO PRN ×4 (02:14→14:45)
[2018-05-13 05:01] LABS: HEMOGLOBIN 10.3 G/DL (11.5-16.0)
[2018-05-13] MEDS: MELOXICAM 7.5 MG (MOBIC) TABLET PO SCH (06:01)
[2018-05-13] MEDS: KCL 10 MEQ TAB (MICRO K) PO SCH (06:01)
--- NOTE | 2018-05-13 07:00 | Progress Note (SOAP) ---
Subjective Date Seen by a Provider: May 13, 2018 Time Seen by a Provider: 06:57 Subjective/Events-last exam Currently still complains of dizziness even though overall she is markedly improved. No other complaints. Objective Exam Vital Signs Date Time Temp Pulse Resp B/P (MAP) Pulse Ox O2 Delivery O2 Flow Rate FiO2 05/12/18 23:55 98.1 74 18 121/59 (79) 91 Room Air 05/12/18 21:00 92 Nasal Cannula 1.00 05/12/18 17:55 98.2 05/12/18 16:10 98.2 76 18 142/65 (90) 96 Nasal Cannula 2.00 05/12/18 13:57 98.1 05/12/18 09:00 92 Nasal Cannula 1.00 05/12/18 07:48 98.1 75 18 153/67 (95) 92 Nasal Cannula 1.00 I & O 05/13/18 07:00 Intake Total 1572 ml Balance 1572 ml Capillary Refill : General Appearance: No Apparent Distress Extremity: Normal Capillary Refill, Normal Inspection, Normal Range of Motion, No Calf Tenderness, No Pedal Edema Neurologic/Psychiatric: Alert, Oriented x3, No Motor/Sensory Deficits, Normal Mood/Affect, 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
[2018-05-13] MEDS ORDERED: OXYC1TAB87 PO (07:05)
[2018-05-13] MEDS ORDERED: SENN-20 PO (07:05)
[2018-05-13] MEDS ORDERED: ONDA8TAB13 PO (07:05)
[2018-05-13] MEDS ORDERED: SCOP1PAT17 TD (07:05)
--- NOTE | 2018-05-13 07:08 | D/C HH Face to Face Order ---
D/C Face to Face Orders Instructions for Patient Via [facility], Patient Instructions/FollowUp: f/u 2 weeks Mandi office See Dr. Hernandez's standard TKA DC instructions Physician to follow Patient: David Discharge Diet for Home: No Restrictions Patient Problems: Primary OA right knee S/P right TKA Goals for Patient: independence with ADLs Patient Data-Allergies,Ht & Wt Patient Allergies: Coded Allergies: No Known Drug Allergies (Unverified , 04/05/15) Height (Feet): 5 Height (Inches): 4.00 Weight (Pounds): 174 Weight (Ounces): 0.0 Home Health Need/Face to Face Date of Face to Face: May 13, 2018 Clinical Findings: Muscle weakness, Pain with ambulation, Unsteady gait I have seen Pt [id number]: Yes Discharged To: Home Diagnosis/Conditions: Primary OA right knee S/P right TKA Patient is Homebound due to: Megan fall risk due to instabilty, Pain w/ ambulation Homebound Status Due to the above stated illness, injury or surgical procedure (medical condition or diagnosis) and associated clinical findings, the patient is homebound because of his/her inability to leave home except with aid of a supportive device and/or person AND leaving the home requires a considerable and taxing effort or is medically contraindicated. Pt req the following assistanc: Walker Home Health Nursing Orders Home Health Services Order: Physical Therapy-Evaluate & Treat remove maira on Home Health Infusion Therapy Line Start Date: May 10, 2018 Line Start Time: 0845 Line Type: Saline Lock Site Location: Forearm Therapy Orders Therapy Orders: Physical Therapy Therapy Specific Orders: Eval assistive deivces, Gait training, Increase strength/endurance, Restore ROM physical therapy 5x/week x2 weeks Certify Stmt I certify that this patient is under my care and that I, a nurse practitioner or a physician; a news production assistant working with me, had a face to face encounter that - meets the physician face to face encounter requirements with this patient as dated. JOVANA NEWMAN APRN May 13, 2018 07:08
[2018-05-13 08:00] VITALS: BP 145/76
[2018-05-13] MEDS: amLODIPine 5 MG (NORVASC) TAB PO SCH (08:19)
[2018-05-13] MEDS: SENNA W/DOCUSATE (SENOKOT S) TABLET PO SCH (08:19)
[2018-05-13] MEDS: eZETimibe 10 MG (ZETIA) TABLET PO SCH (08:19)
[2018-05-13] MEDS: ASPIRIN E.C. 81 MG (ECOTRIN) TAB PO SCH (08:20)
[2018-05-13] MEDS: lisINopril 40 MG (PRINIVIL) TABLET PO SCH (08:20)
[2018-05-13] MEDS: PHENAZOPYRIDINE 100 MG (PYRIDIUM) TABLET PO SCH ×2 (08:20→13:32)
[2018-05-13] MEDS: ENOXAPARIN 40 MG/0.4 ML (LOVENOX) SYR SC SCH (08:21)
--- NOTE | 2018-05-13 08:54 | Progress Note-Hospitalist ---
Subjective HPI/CC On Admission Date Seen by Provider: May 13, 2018 Time Seen by Provider: 09:30 Chief complaint: Medical management status post right knee replacement uncomplicated by Dr. Hernandez POD#1 HPI: This is a 77yoWF clinic patient of mine with a past medical history of HTN , HLP and anxiety with chronic vertigo who presents after an uncomplicated right knee replacement after failed conservative treatment. At this current time pt does report feeling dizziness when she got up but she is feeling well, having no nausea or vomiting, and did eat breakfast and urinating well. I checked her medication and pre op labs and I told her I would continue to monitor her from a medical management standpoint. Subjective/Events-last exam Patient very anxious about going home Chronic dizziness is having a flare as expected and I counseled her in depth about this No evidence of UTI since from culture negative since she had been treated for UTI and pre-op last week Urine culture reviewed Pain is controlled Counseled in depth regarding the need to take it nice and slow at home and prevent falls No indication for inpatient rehabilitation for swing bed status Very anxious on a chronic basis Ordered walker Home health ordered Review of Systems General: Fatigue, Other (anxiety) Objective Exam Vital Signs Vital Signs Date Time Temp Pulse Resp B/P (MAP) Pulse Ox O2 Delivery O2 Flow Rate FiO2 05/13/18 10:35 94 Nasal Cannula 05/13/18 08:00 80 145/76 (99) 05/12/18 23:55 98.1 18 05/12/18 21:00 1.00 Capillary Refill : General Appearance: No Apparent Distress HEENT: PERRL/EOMI, Normal ENT Inspection, Pharynx Normal Neck: Full Range of Motion, Normal Inspection, Non Tender, Supple, Carotid Bruit Respiratory: Chest Non Tender, Lungs Clear, Normal Breath Sounds, No Accessory Muscle Use, No Respiratory Distress Cardiovascular: Regular Rate, Rhythm, No Edema, No Gallop, No JVD, No Murmur, Normal Peripheral Pulses Gastrointestinal: Normal Bowel Sounds, No Organomegaly, No Pulsatile Mass, Non Tender, Soft Back: Normal Inspection, No CVA Tenderness, No Vertebral Tenderness Extremity: Normal Capillary Refill, Normal Inspection, Normal Range of Motion, No Calf Tenderness, No Pedal Edema Neurologic/Psychiatric: Alert, Oriented x3, No Motor/Sensory Deficits, Normal 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 Assessment/Plan Assessment and Plan Assess & Plan/Chief Complaint Assessment: s/p right knee replacement by Dr Hernandez uncomplicated POD # 3 Plan: Home meds DVT Px per protocol Pain management Manage dizziness with slow ambulation DC home on HH Walker ordered Diagnosis/Problems Diagnosis/Problems (1) Status post right knee replacement Status: Acute (2) Hypertension Status: Chronic Qualifiers: Hypertension type: essential hypertension Qualified Codes: I10 - Essential (primary) hypertension (3) Anxiety Status: Chronic (4) Hyperlipidemia Status: Chronic Qualifiers: Hyperlipidemia type: mixed hyperlipidemia Qualified Codes: E78.2 - Mixed hyperlipidemia (5) Vertigo Status: Chronic (6) Primary osteoarthritis of right knee Status: Chronic Clinical Quality Measures DVT/VTE Risk/Contraindication: Risk Factor Score Per Nursin RFS Level Per Nursing on Admit: 4+=Very High SILVERIO JACK DO May 13, 2018 08:54
[2018-05-13] MEDS: DOCUSATE SODIUM 100 MG (COLACE) CAP PO SCH (09:04)
--- NOTE | 2018-05-13 09:44 | Occupational Ther Daily Note ---
OT Current Status-Daily Note Subjective Pt alert, finishing up with PT. Took over care from PT. Pt agrees to therapy. C/o nausea and dizziness, previous issues. Mental Status/Objective Patient Orientation: Person, Place, Time, Situation Therapy Code Descriptions/Definitions Functional [place] Measure: 0=Not Assessed/NA 4=Minimal Assistance 1=Total Assistance 5=Supervision or Setup 2=Maximal Assistance 6=Modified [place] 3=Moderate Assistance 7=Complete [place] Attachments: IV ADL-Treatment Bathing (FIM): 5 (Pt completes using grabbars and shower bench. Pt completed half of shower sitting and rest standing. Safety concerns due to dizziness only.) Bathing Location: L Arm, R Arm, L Upper Leg, R Upper Leg, L Lower Leg ( including foot), R Lower Leg (including foot), Chest, Abdomen, Buttocks, Perineal Area Upper Body (FIM): 5 (After set up, pt able to don/doff hospital gown. Neck tied to simulate upper body clothing. Pt declined donning regular clothing.) Lower Body Dressing (FIM): 4 (Min A to don socks. Able to reach feet to don/ doff over toes/feet. Then is able to hike over hips.) Toileting (FIM): 6 (Pt completes using FWW and grabbars.) Transfers (B, C, W/C) (FIM): 6 Toilet/Commode Transfer (FIM): 6 (Using grabbars and FWW.) Shower Transfer(FIM): 6 (Using grabbar, shower bench and FWW.) OT Short Term Goals Short Term Goals Transfers (B,C,W/C) (FIM): 5 1=Demonstrate adherence to instructed precautions during ADL tasks. 2=Patient will verbalize/demonstrate understanding of assistive devices/ modifications for ADL. 3=Patient will improve strength/tolerance for activity to enable patient to perform ADL's. OT Construction Project Manager Goals Correction Goals Time Frame: May 18, 2018 Grooming(FIM): 6 Bathing(FIM): 5 Upper Body Dressing(FIM): 6 Lower Body Dressing(FIM): 5 Toileting(FIM): 6 Toilet/Commode Transfer(FIM): 5 1=Demonstrate adherence to instructed precautions during ADL tasks. 2=Patient will verbalize/demonstrate understanding of assistive devices/ modifications for ADL. 3=Patient will improve strength/tolerance for activity to enable patient to perform ADL's. OT Education/Plan Problem List/Assessment Assessment: Impaired Self-Care Skills Pt to benefit from skilled OT intervention for ADL training, transfers, and safety education to increase level of independence and allow safe discharge plan. Discharge Recommendations Plan/Recommendations: Continue POC Treatment Plan/Plan of Care Patient would benefit from OT for education, treatment and training to promote independence in ADL's, mobility, safety and/or upper extremity function for ADL' s. Plan of Care: ADL Retraining, Functional Mobility, UE Funct Exercise/Act Treatment Duration: May 18, 2018 Frequency: 5 times per week Estimated Hrs Per Day: .25 hour per day Rehab Potential: Good Time/GCodes Start Time: 09:10 Stop Time: 09:40 Total Time Billed (hr/min): 30 Billed Treatment Time 1 visit-ADL 2 (30 min) MARITZA HOOKER May 13, 2018 09:44
--- NOTE | 2018-05-13 09:45 | Physical Therapy Daily Note ---
PT Daily Note-Current Subjective Pt is in bed with in room and agrees to PT. Pt seems to feel better today. Pain Numeric Pain Scale: 5-Moderate Pain Location: Right Location Body Site: Knee Mental Status Patient Orientation: Person, Place, Situation, Normal For Age Attachments: Polar Pack Transfers Therapy Code Descriptions/Definitions Functional [place] Measure: 0=Not Assessed/NA 4=Minimal Assistance 1=Total Assistance 5=Supervision or Setup 2=Maximal Assistance 6=Modified [place] 3=Moderate Assistance 7=Complete [place] Therapy Quality Codes: 6 Independent with activity with or without an assistive device 5 Patient requires set up or clean up by helper. Patient completes activity by themselves 4 Supervision or touching assist (CGA). [place] provide cues , steadying assist 3 The helper provides less than half the effort to complete the activity 2 The helper provides more than half the effort to complete the activity 1 Dependent. The helper does all the effort to complete an activity 7 Patient refused to complete or attempt activity 9 The patient did not perform the activity before the current illness or injury 88 Not attempted due to Medical conditions or safety concerns Transfers (B, C, W/C) (FIM): 6 Scootin Supine to/from Sit: 6 Sit to/from Stand: 6 Weight Bearing Right Lower Extremity: Right Full Weight Bearing Left Lower Extremity: Left Full Weight Bearing Gait Training Gait (FIM): 6 Distance (FIM): 3=150 ft Distance: 500' Gait Level of Assist: 6 Gait Persons Needed: 1 Gait Assistive Device: FWW Pt uses reciprocal pattern and has good gait speed. Stair Training Stair Training: Handrails/: 2 handrails Stairs (FIM): 2 #of Steps: 4 Stairs: Pattern: Step to Level of Assist: 5 Assessment Current Status: Good Progress Pt is able to perform bed mobility mod I. Pt also performs bathroom skills mod I. Pt amb 500' with FWW mod I. Pt does require standing recovery periods due to dizziness. Pt was able to perform 4 steps with SBA and correct stepping pattern. Pt returned to room and is in shower for OT to assist her. PT Short Term Goals Short Term Goals Time Frame: May 18, 2018 Transfers (B,C,W/C) (FIM): 5 Gait (FIM): 5 Distance (FIM): 3=150 ft Gait Distance Comment: 150' Gait Level of Assist: 5 Gait Assistive Device: FWW Stairs (FIM): 2 # of Steps: 4 Stairs Level of Assist: 4 PT Plan Problem List Problem List: Activity Tolerance, Functional Strength, Safety, Balance, Gait, Transfer, Bed Mobility, ROM Treatment/Plan Treatment Plan: Continue Plan of Care Treatment Plan: Bed Mobility, Education, Functional Activity Hero, Functional Strength, Gait, Safety, Therapeutic Exercise, Transfers Treatment Duration: May 18, 2018 Frequency: 11 times per week Estimated Hrs Per Day: .25 hour per day Patient and/or Family Agrees t: Yes Time/GCodes Time In: 847 Time Out: 910 Total Billed Treatment Time: 23 Total Billed Treatment 1 visit FA x2 23 min ALISSA LIN PT May 13, 2018 09:45
--- NOTE | 2018-05-13 10:32 | NUR ---
CM/SS discharge information sent to [facility] at patient request. Also, FWW will be acquired with [facility]. Choice forms in the patient's chart.
--- NOTE | 2018-05-13 13:52 | NUR ---
Inpatient rehab evaluation Received order to evaluate patient for admission to the inpatient rehab unit. Discussed with hospice social worker who reports patient will discharge home with [facility]. Thank you for the referral.
--- NOTE | 2018-05-13 14:14 | Physical Therapy Daily Note ---
PT Daily Note-Current Subjective Pt in bed and reports she would like to go for a walk before she leaves. Pain Numeric Pain Scale: 0-No Pain Location: No Pain Reported Mental Status Patient Orientation: Person, Place, Situation, Normal For Age Transfers Therapy Code Descriptions/Definitions Functional [place] Measure: 0=Not Assessed/NA 4=Minimal Assistance 1=Total Assistance 5=Supervision or Setup 2=Maximal Assistance 6=Modified [place] 3=Moderate Assistance 7=Complete [place] Therapy Quality Codes: 6 Independent with activity with or without an assistive device 5 Patient requires set up or clean up by helper. Patient completes activity by themselves 4 Supervision or touching assist (CGA). [place] provide cues , steadying assist 3 The helper provides less than half the effort to complete the activity 2 The helper provides more than half the effort to complete the activity 1 Dependent. The helper does all the effort to complete an activity 7 Patient refused to complete or attempt activity 9 The patient did not perform the activity before the current illness or injury 88 Not attempted due to Medical conditions or safety concerns Transfers (B, C, W/C) (FIM): 6 Supine to/from Sit: 6 Sit to/from Stand: 6 Weight Bearing Right Lower Extremity: Right Full Weight Bearing Left Lower Extremity: Left Full Weight Bearing Gait Training Gait (FIM): 6 Distance (FIM): 3=150 ft Distance: 1000' Gait Level of Assist: 6 Gait Persons Needed: 1 Gait Assistive Device: FWW Pt used reciprocal pattern with improved flex of RLE. Assessment Current Status: Good Progress Pt was able to perform bed mobility and transfers mod I. Pt wanted to be sure she was transferring correctly so SPT educated pt on proper transfer technique and why it is of importance. Pt was able to demonstrate transfer correctly. Pt amb 1000' with FWW mod I. PT instructed pt to make sure she flexes RLE through and to not swing it out to the side. Pt was able to demonstrate gait correctly. Pt returned to room and is EOB with lunch and is in room. PT Short Term Goals Short Term Goals Time Frame: May 18, 2018 Transfers (B,C,W/C) (FIM): 5 Gait (FIM): 5 Distance (FIM): 3=150 ft Gait Distance Comment: 150' Gait Level of Assist: 5 Gait Assistive Device: FWW Stairs (FIM): 2 # of Steps: 4 Stairs Level of Assist: 4 PT Plan Problem List Problem List: Activity Tolerance, Functional Strength, Safety, Balance, Gait, Transfer, Bed Mobility, ROM Treatment/Plan Treatment Plan: Discontinue PT Treatment Plan: Bed Mobility, Education, Functional Activity Hero, Functional Strength, Gait, Safety, Therapeutic Exercise, Transfers Treatment Duration: May 18, 2018 Frequency: 11 times per week Estimated Hrs Per Day: .25 hour per day Patient and/or Family Agrees t: Yes Discharge Recommendations Therapy D/C Recommendations: Physical Therapy Home Care Time/GCodes Time In: 1324 Time Out: 1343 Total Billed Treatment Time: 19 Total Billed Treatment 1 visit GT 19 min ALISSA LIN PT May 13, 2018 14:14
[2018-05-13 15:50] VITALS: BP 145/76
[2018-05-15] MEDS ORDERED: SCOPOLAMINE PATCH REMOVAL TP SCH (07:14)
== END 2018-05-13 15:57 | disposition home health service (06) | DRG 470 ==
LOC: 4TH 08:02 → SURG 08:03 → 4TH 13:55
PROVIDERS: ADMIT Orthopaedic Surgery; ATTEND Orthopaedic Surgery
PROC: 0SRC0J9 Replacement of Right Knee Joint with Synthetic Substitute, Cemented, Open Approach (ICD-10-PCS; principal; 2018-05-10 10:42)
DX: M17.11 Unilateral primary osteoarthritis, right knee (principal); I10 Essential (primary) hypertension; K21.9 Gastro-esophageal reflux disease without esophagitis; E78.2 Mixed hyperlipidemia; F41.9 Anxiety disorder, unspecified; R42 Dizziness and giddiness; E78.00 Pure hypercholesterolemia, unspecified; J30.2 Other seasonal allergic rhinitis; K59.09 Other constipation; R33.9 Retention of urine, unspecified
CPT/HCPCS: 36415; 73560; 80048; 80053; 85014; 85018; 85027; 86850; 86900; 86901; 87088; 94664

== ENCOUNTER 2018-06-27 08:50 | Outpatient (RCR) | payer MEDICARE ==
[~2018-06-27 08:50] MED LIST changes: +ONDA8TAB13 PO; +OXYC1TAB87 PO; +SCOP1PAT17 TD; +SENN-20 PO
== END 2018-06-27 09:50 | disposition home or self-care (01) ==
PROVIDERS: ATTEND Orthopaedic Surgery
DX: Z47.1 Aftercare following joint replacement surgery (principal); Z96.651 Presence of right artificial knee joint

== ENCOUNTER → 2018-09-28 | Outpatient (CLI) | payer MEDICARE ==
--- NOTE | 2018-09-28 13:35 | Diagnostic Imaging Report ---
INDICATION: Routine screening. COMPARISON: 09/21/2017 and 09/20/2015. TECHNIQUE: 2D and 3D bilateral screening mammography was performed with CAD. FINDINGS: Both breasts are heterogeneously dense, limiting the sensitivity of mammography. Benign calcifications in the right breast are stable. No mass or malignant appearing microcalcifications are seen. The axillae are unremarkable. IMPRESSION: No mammographic features suspicious for malignancy are identified. ACR BI-RADS Category 2: Benign findings. Result letter will be mailed to the patient. Note: At least 10% of breast cancer is not imaged by mammography. Dictated by: Dictated on workstation # [id number]
== END ==
LOC: RAD 07:24
PROVIDERS: ATTEND Internal Medicine
DX: Z12.31 Encounter for screening mammogram for malignant neoplasm of breast (principal)
CPT/HCPCS: 77067

== ENCOUNTER → 2019-03-20 | Outpatient (CLI) | payer MEDICARE ==
[~2019-03-20] MED LIST changes: -OMEP20CA12 PO; +OMEP20CA13 PO
== END ==
LOC: CARD 13:14
PROVIDERS: ATTEND Internal Medicine Cardiovascular Disease
DX: E78.5 Hyperlipidemia, unspecified (principal); I10 Essential (primary) hypertension; I65.23 Occlusion and stenosis of bilateral carotid arteries
CPT/HCPCS: 93306

== ENCOUNTER 2019-03-30 08:00 | Outpatient (RCR) | payer MEDICARE | END 2019-03-30 09:31 | disposition home or self-care (01) | PROVIDERS: ATTEND Orthopaedic Surgery | DX: M51.37 Other intervertebral disc degeneration, lumbosacral region (principal); M47.816 Spondylosis without myelopathy or radiculopathy, lumbar region; M41.56 Other secondary scoliosis, lumbar region ==

== ENCOUNTER → 2019-04-05 | Outpatient (CLI) | payer MEDICARE ==
[~2019-04-05] MED LIST changes: +CATHETER FLUSH 10 ML SYR IV PRN; +EZET10TA17 PO; -EZET10TA5 PO; +OMEP-280 PO; -OMEP20CA13 PO; +REGADENOSON 0.4 MG/5 ML SYR (LEXISCAN) IV ONE
[2019-04-05 09:30] VITALS: BP 158/83
--- NOTE | 2019-04-05 15:23 | STRESS TEST ---
DATE OF SERVICE: 04/05/2019 LEXISCAN MYOVIEW STRESS TEST REPORT REFERRING PHYSICIAN: Dr. Branham. Baseline heart rate is 68, baseline blood pressure 157/78. Baseline EKG is sinus rhythm with no ischemic changes. In summary, the patient was initially scheduled for exercise Myoview stress test. She was unable to exercise beyond 2 minutes and 20 seconds on a standard Horace protocol, achieving only 75% of maximum expected heart rate. Test was terminated and converted to Lexiscan. Prior to the test, she received 10.64 mCi of technetium-99 Myoview then received 0.4 mg of Lexiscan followed by 32.0 mCi of technetium-99 Myoview. Throughout the test, there were no EKG changes. The resting and stress images were reviewed and compared in the short axis, horizontal long axis, and vertical long axis views. Review of the images showed good radiotracer uptake with no significant ischemia or infarction. SSS is 1, SDS 1, TID value 1.02. On the gated images, the left ventricle appeared to be normal size with normal contractility. Calculated ejection fraction 82%. CONCLUSION: 1. The patient tolerated Lexiscan well. 2. No ischemia or infarction on SPECT images. 3. Normal left ventricular size and contractility, calculated ejection fraction of 82%. Job ID: [id number] DocumentID: [id number] Dictated Date: 04/05/2019 13:05:45 High Worker Date: 04/05/2019 15:23:17 Dictated By: NAIMA ESTEVEZ MD
== END ==
LOC: CARD 08:11
PROVIDERS: ATTEND Internal Medicine Cardiovascular Disease
DX: I65.23 Occlusion and stenosis of bilateral carotid arteries (principal); I10 Essential (primary) hypertension; E78.5 Hyperlipidemia, unspecified
CPT/HCPCS: 78452; 93017

== ENCOUNTER → 2019-10-02 | Outpatient (CLI) | payer MEDICARE ==
[~2019-10-02] MED LIST changes: -CATHETER FLUSH 10 ML SYR IV PRN; -MECL-106; +MECL-149; -OMEP-280 PO; +OMEP20CA18 PO; -REGADENOSON 0.4 MG/5 ML SYR (LEXISCAN) IV ONE
--- NOTE | 2019-10-03 12:41 | Diagnostic Imaging Report ---
INDICATION: Routine screening. Comparison is made with prior mammogram from 09/28/2018, 09/21/2017. 2-D and 3-D bilateral screening mammography was performed with CAD. Both breasts are heterogeneously dense, limiting the sensitivity of mammography. There is a cluster of microcalcifications in the medial aspect of the left breast. These are inferiorly located. These could potentially be dermal. In addition, there are calcifications in the medial aspect of the right breast. These too appear to be inferiorly located. No other suspicious microcalcifications are seen. No masses are identified. Axillae are unremarkable. IMPRESSION: BI-RADS 0 Bilateral breast calcifications. Additional views are recommended for further evaluation. ACR BI-RADS Category 0: Incomplete. (Needs additional imaging evaluation). Result letter will be mailed to the patient. Note: At least 10% of breast cancer is not imaged by mammography. Dictated by: Dictated on workstation # [id number]
== END ==
LOC: RAD 14:18
PROVIDERS: ATTEND Internal Medicine
DX: Z12.31 Encounter for screening mammogram for malignant neoplasm of breast (principal)
CPT/HCPCS: 77063; 77067

== ENCOUNTER → 2019-10-12 | Outpatient (CLI) | payer MEDICARE ==
--- NOTE | 2019-10-12 10:02 | Diagnostic Imaging Report ---
INDICATION: Bilateral breast calcifications. Patient presents for additional views. COMPARISON: Correlation is made with the recent screening study from 10/02/2019. TECHNIQUE: 2D and 3D bilateral diagnostic mammography was performed. This included magnification views of both breasts in the CC and ML projections as well as conventional 90 degree lateral views. FINDINGS: The calcifications seen in the inferior and medial aspect of both breasts appear to be dermal in nature. After personally looking at the patient's breasts, the patient does have multiple skin lesions, likely seborrheic keratoses. These were marked with ring markers and additional mammography was performed. The markers do confirm that the calcifications are arising from the skin lesions. No intraparenchymal suspicious microcalcifications or masses are seen. IMPRESSION: The calcifications noted on screening mammography appear to be arising from the patient's skin lesions and are likely benign. No mammographic features suspicious for malignancy are identified. The patient may return to routine annual screening mammography. ACR BI-RADS Category 2: Benign findings. Result letter will be mailed to the patient. Note: At least 10% of breast cancer is not imaged by mammography. Dictated by: Dictated on workstation # [id number]
== END ==
LOC: RAD 09:03
PROVIDERS: ATTEND Internal Medicine
DX: N63.20 Unspecified lump in the left breast, unspecified quadrant (principal); N63.10 Unspecified lump in the right breast, unspecified quadrant
CPT/HCPCS: 77066; G0279; 77062

== ENCOUNTER → 2020-02-14 | Outpatient (CLI) | payer MEDICARE ==
[~2020-02-14] MED LIST changes: +ALPR.25T PO; -ALPR0.254 PO; +AMLO-250 PO; -AMLO5TAB9 PO; +ASCO100024 PO; -ASCO10006 PO; +ASPI-1238 PO; -ASPI-983 PO
[2020-02-14 10:16] LABS: BILIRUBIN,URINE NEGATIVE (NEGATIVE); CLARITY,URINE CLEAR; COLOR,URINE YELLOW; GLUCOSE, URINE (UA) NEGATIVE (NEGATIVE); KETONES,URINE NEGATIVE (NEGATIVE); LEUKOCYTE ESTERASE ,URINE NEGATIVE (NEGATIVE); NITRITE,URINE NEGATIVE (NEGATIVE); PH,URINE 7.5 (5-9); PROTEIN,URINE NEGATIVE (NEGATIVE)
[2020-02-14 10:22] LABS: BACTERIA,URINE NEGATIVE /HPF
[2020-02-14 10:23] LABS: AMORPHOUS SEDIMENT,UR FEW AMOR PHOSPHATE /LPF; YEAST,URINE FEW /HPF
--- NOTE | 2020-02-14 11:14 | Diagnostic Imaging Report ---
INDICATION: Rib and flank pain. FINDINGS: The bowel gas pattern is nonspecific. There are degenerative changes in the spine. There are no abnormal abdominal calcifications. The osseous structures are grossly unremarkable. IMPRESSION: Nonspecific bowel gas pattern. Dictated by: Dictated on workstation # [id number]
--- NOTE | 2020-02-14 14:21 | Diagnostic Imaging Report ---
Indication: Right flank and rib pain. COMPARISON: None FINDINGS: Multiple dedicated radiographic views of the right ribs were obtained. No healing or displaced right-sided rib fractures are identified. Right lung is clear. Note is made of significant narrowing of the acromiohumeral joint space of the right shoulder with sclerotic remodeling to the articular surfaces. Indwelling stimulator device is also present. IMPRESSION: 1. No healing or displaced right-sided rib fractures. 2. Probable chronic rotator cuff tear of the right shoulder. Dictated by: Dictated on workstation # [id number]
== END ==
LOC: RAD 09:43
PROVIDERS: ATTEND Internal Medicine
DX: R10.9 Unspecified abdominal pain (principal); R07.81 Pleurodynia; Z97.8 Presence of other specified devices
CPT/HCPCS: 71100; 74018; 81000

== ENCOUNTER → 2020-10-02 | Outpatient (CLI) | payer MEDICARE ==
--- NOTE | 2020-10-02 09:04 | Diagnostic Imaging Report ---
INDICATION: Routine screening. Comparison is made with prior mammogram from 10/02/2019 and 09/28/2018+ 2-D and 3-D bilateral screening mammography was performed with CAD. Both breast are heterogeneously dense, limiting the sensitivity of mammography. Benign-appearing calcifications in the right breast are noted. No mass or malignant appearing microcalcifications are seen. Axillae are unremarkable. IMPRESSION: BI-RADS Category 2 No mammographic features suspicious for malignancy are identified. ACR BI-RADS Category 2: Benign findings. Result letter will be mailed to the patient. Note: At least 10% of breast cancer is not imaged by mammography. Dictated by: Dictated on workstation # [id number]
== END ==
LOC: RAD 08:00
PROVIDERS: ATTEND Internal Medicine
DX: Z12.31 Encounter for screening mammogram for malignant neoplasm of breast (principal)
CPT/HCPCS: 77063; 77067

== ENCOUNTER 2021-01-23 05:31 | Outpatient (RCR) | payer MEDICARE ==
[~2021-01-23] VITALS: Ht 162.6 cm; Wt 79.3 kg
[~2021-01-23 05:31] MED LIST changes: +CHOL2400 MC; +GEMF600T88 PO; +IBUP-2380 PO
== END 2021-01-23 12:55 | disposition home or self-care (01) ==
LOC: PREOP 05:31
PROVIDERS: ATTEND Surgery
DX: Z01.812 Encounter for preprocedural laboratory examination (principal); R13.10 Dysphagia, unspecified; Z20.822 Contact with and (suspected) exposure to COVID-19
CPT/HCPCS: 87635

== ENCOUNTER 2021-01-28 11:24 | Day surgery (SDC) | payer MEDICARE ==
[2021-01-28] VITALS (7 sets, daily range): BP systolic 140–158; BP diastolic 67–73
[2021-01-28] MEDS ORDERED: LACTATED RINGERS 1,000 ML IV ONE (11:32)
[2021-01-28] MEDS ORDERED: LACTATED RINGERS 1,000 ML IV STA (11:33)
[2021-01-28] MEDS ORDERED: HURRICAINE EXT TUBE (BENZOCAINE) XX PRN (11:45)
--- NOTE | 2021-01-28 11:56 | Progress Note-Pre Operative ---
Pre-Operative Progress Note H&P Reviewed The H&P was reviewed, patient examined and no changes noted. Date Seen by Provider: Jan 28, 2021 Time Seen by Provider: 11:56 Date H&P Reviewed: Jan 28, 2021 Time H&P Reviewed: 11:56 Pre-Operative Diagnosis: dysphagia BUZZ BANEGAS DO Jan 28, 2021 11:56
[2021-01-28] MEDS ORDERED: proPOfol 200 MG/20 ML (DIPRIVAN) VIAL IV ONE (12:18)
[2021-01-28] MEDS ORDERED: PANT40TA2 PO (12:36)
--- NOTE | 2021-01-28 12:37 | Discharge Inst-Simple/Standard ---
Discharge Inst-Standard Discharge Medications New, Converted or Re-Newed RX: RX on Chart Patient Instructions/Follow Up Plan of Care/Instructions/FU: 2 weeks [place] Activity as Tolerated: Yes Discharge Diet: Regular Diet (small fequent meals) BUZZ BANEGAS DO Jan 28, 2021 12:37
--- NOTE | 2021-01-28 12:39 | Progress Note-Post Operative ---
Post-Operative Progess Note Surgeon (s)/Production Superintendent Hydro (s) Surgeon BUZZ BANEGAS DO Production Superintendent Hydro: na Pre-Operative Diagnosis dysphagia Post-Operative Diagnosis hiatal hernia Procedure & Operative Findings Date of Procedure 01/28/21 Procedure Performed/Findings egd c biopsy ge junction Anesthesia Type per financial rep Estimated Blood Loss Estimated blood loss (mL): none Specimens/Packing Specimens Removed ge BUZZ BANEGAS DO Jan 28, 2021 12:39
--- NOTE | 2021-01-28 22:21 | OPERATIVE REPORT ---
DATE OF SERVICE: 01/28/2021 PREOPERATIVE DIAGNOSIS: Dysphagia. POSTOPERATIVE DIAGNOSIS: Hiatal hernia. PROCEDURE: EGD with biopsy. SURGEON: Buzz Amador DO ANESTHESIA: Per ONSITE CASE MANAGER. ESTIMATED BLOOD LOSS: None. COMPLICATIONS: None. INDICATIONS: The patient is an 80-year-old female, who has been having dysphagia symptoms. She understands risks and benefits of procedure and wished to proceed. Consent was signed in the chart. DESCRIPTION OF PROCEDURE: The patient was taken to the endoscopy suite, placed in left lateral recumbent position. Timeout was performed. Scope was inserted in mouth, down the esophagus, stomach and into the duodenum without difficulty. There were no polyps, masses or ulcerations within the duodenum. Scope was slowly retracted back into the stomach where it was further insufflated. No polyps, masses or ulcerations. Scope was retroflexed noting a hiatal hernia. Scope was then returned to its normal position, slowly withdrawn to distal esophagus. Again, able to visualize the hiatal hernia. Biopsy of the GE junction was obtained. Scope was slowly retracted back until completely removed, noting no other pathology. The patient tolerated procedure well without any complications, taken to the recovery room in stable condition. RECOMMENDATIONS: The patient will stop omeprazole 20 [address] will place her on Protonix 40 mg daily. We will await biopsy results and also see how her symptoms are doing when the patient will follow up in approximately 2 weeks. Any issues before that be seen at that time. Job ID: [id number] DocumentID: [id number] Dictated Date: 01/28/2021 12:41:45 Information Clerk Date: 01/28/2021 22:20:56 Dictated By: BUZZ AMADOR DO
--- NOTE | 2021-01-29 13:27 | Anesthesia-General Post-Op ---
MAC Patient Condition Mental Status/LOC: Same as Preop Cardiovascular: Satisfactory Nausea/Vomiting: Absent Respiratory: Satisfactory Pain: Controlled Complications: Absent Post Op Complications Complications None Follow Up Care/Instructions Patient Instructions None needed. Anesthesiology Discharge Order Discharge Order Patient is doing well, no complaints, stable vital signs, no apparent adverse anesthesia problems. No complications reported per nursing. RACHEL KATZ CRNA Jan 29, 2021 13:27
== END 2021-01-28 13:25 | disposition home or self-care (01) ==
LOC: ENDO 11:24
PROVIDERS: ATTEND Surgery
DX: K44.9 Diaphragmatic hernia without obstruction or gangrene (principal); M54.9 Dorsalgia, unspecified; I10 Essential (primary) hypertension; E78.00 Pure hypercholesterolemia, unspecified; F41.9 Anxiety disorder, unspecified; K21.9 Gastro-esophageal reflux disease without esophagitis; E78.2 Mixed hyperlipidemia; I65.29 Occlusion and stenosis of unspecified carotid artery; Z79.02 Long term (current) use of antithrombotics/antiplatelets; Z79.899 Other long term (current) drug therapy; Z79.82 Long term (current) use of aspirin; Z79.890 Hormone replacement therapy; Z88.5 Allergy status to narcotic agent
CPT/HCPCS: 88305

== ENCOUNTER → 2021-08-01 | Outpatient (CLI) | payer MEDICARE ==
[~2021-08-01] MED LIST changes: -BENA40TA5; -BENA40TA5 PO; +BENA40TA84; +BENA40TA84 PO; +PANT40TA2 PO; +POTA-160 PO; -POTA10TA6 PO
== END ==
LOC: CARD 08:30
PROVIDERS: ATTEND Internal Medicine Cardiovascular Disease
DX: I10 Essential (primary) hypertension (principal)
CPT/HCPCS: 93306

== ENCOUNTER → 2021-09-03 | Outpatient (CLI) | payer MEDICARE ==
[~2021-09-03] VITALS: Ht 162 cm; Wt 78.0 kg
[~2021-09-03] MED LIST changes: +CATHETER FLUSH 10 ML SYR IVP PRN; +REGADENOSON 0.4 MG/5 ML SYR (LEXISCAN) IV ONE
[2021-09-03 08:56] VITALS: BP 171/94
--- NOTE | 2021-09-08 08:03 | Cardiology Stress Test Report ---
Stress Test Report Date of Procedure/Referring: Date of Procedure: Sep 03, 2021 PCP Christina Cortés DO Admitting Physician Admitting Physician: Attending Physician: Jameson Zapata MD Indications: HTN Baseline Heart Rate: 73 Baseline Blood Pressure: Blood Pressure Systolic: 171 Blood Pressure Diastolic: 94 Baseline Vitals Vital Signs Date Time Temp Pulse Resp B/P (MAP) Pulse Ox O2 Delivery O2 Flow Rate FiO2 09/03/21 08:56 76 171/94 (119) Baseline EKG: Baseline EKG: NSR Summary After explaining the procedure to the patient, she signed a consent and then brought to the stress nuclear laboratory. Patient received 0.4 mg Lexiscan for stress test, ECG, heart rate and blood pressure were monitored continuously. Resting and stress dose of radio tracer were injected, imaging was acquired and reviewed in short axis, horizontal long axis and vertical long axis views. TID: 1.13 SSS: 0 SDS: 0 EF: 81 1. Patient tolerated Lexiscan well 2. No significant ischemia or infarction on SPECT images 3. Baseline hypertension with blood pressure 196/92 persisted during test 4. Normal left ventricular size, EF 81% Copy Copies To 1: CHRISTINA CORTÉS BASHAR J MD Sep 08, 2021 08:03
== END ==
LOC: CARD 08:15
PROVIDERS: ATTEND Internal Medicine Cardiovascular Disease
DX: I10 Essential (primary) hypertension (principal)
CPT/HCPCS: 78452; 93017; A9502

== ENCOUNTER → 2021-10-10 | Outpatient (CLI) | payer MEDICARE ==
[~2021-10-10] MED LIST changes: -CATHETER FLUSH 10 ML SYR IVP PRN; -REGADENOSON 0.4 MG/5 ML SYR (LEXISCAN) IV ONE
--- NOTE | 2021-10-10 11:51 | Diagnostic Imaging Report ---
INDICATION: Routine screening. Comparison is made with prior mammogram 10/02/2020 and 10/02/2019. 2-D and 3-D bilateral screening mammography was performed with CAD. Both breasts are heterogeneously dense, limiting the sensitivity of mammography. Benign calcifications in the upper right breast appear stable. No mass or malignant-appearing microcalcifications are seen. Axillae are unremarkable. IMPRESSION: No mammographic features suspicious for malignancy are identified. ACR BI-RADS Category 2: Benign findings. Result letter will be mailed to the patient. Note: At least 10% of breast cancer is not imaged by mammography. BI-RADS Category 2 Dictated by: Dictated on workstation # [id number]
== END ==
LOC: RAD 09:00
PROVIDERS: ATTEND Internal Medicine
DX: Z12.31 Encounter for screening mammogram for malignant neoplasm of breast (principal)
CPT/HCPCS: 77063; 77067

== ENCOUNTER → 2022-01-13 | Outpatient (CLI) | payer MEDICARE ==
--- NOTE | 2022-01-13 17:45 | Diagnostic Imaging Report ---
PROCEDURE: MRI lumbar spine without contrast. TECHNIQUE: Multiplanar, multisequence MRI of the lumbar spine was performed without contrast. INDICATION: Chronic low back pain. COMPARISON: 02/14/2020. FINDINGS: Five lumbar-type vertebral bodies are visualized with the last well-formed disc space designated L5-S1. No acute fracture or dislocation is seen in the lumbar spine. There is right convexity curvature of the lumbar spine. Modic type I endplate degenerative changes are present at the L1-L2 level. No suspicious focal osseous lesions. Vertebral body heights are well-maintained. The conus terminates at the T12 level. No masses are seen associated with the conus or nerve roots of the cauda equina. No epidural collections are identified. Multilevel degenerative changes are seen in the lumbar spine with disc bulges, facet hypertrophy, and buckling of the ligamentum flavum. T12-L1: Broad-based disc bulge and facet hypertrophy result in no significant spinal canal narrowing and moderate bilateral foraminal stenosis. L1-L2: Broad-based disc bulge, facet hypertrophy, and buckling of the ligamentum flavum result in moderate spinal canal stenosis and moderate bilateral foraminal stenosis. L2-L3: Broad-based disc bulge, facet hypertrophy, and buckling of the ligamentum flavum result in mild spinal canal narrowing and mild right and moderate left foraminal stenosis. L3-L4: Disc desiccation, facet hypertrophy, and buckling of the ligamentum flavum result in moderate spinal canal stenosis and moderate right and vjabetew-py-xzqctx left foraminal stenosis. L4-L5: Broad-based disc bulge, facet hypertrophy, and buckling of the ligamentum flavum result in severe spinal canal stenosis and uujlhppy-nk-sslivy bilateral foraminal stenosis. L5-S1: Broad-based disc bulge, facet hypertrophy, and buckling of the ligamentum flavum result in moderate spinal canal stenosis and sqvkmofj-tf-uyqzlo bilateral foraminal stenosis. Paravertebral soft tissues are unremarkable. A spinal cord stimulator battery pack is visualized in the posterior soft tissues at the L2 level. IMPRESSION: 1. No acute fracture or dislocation in the lumbar spine. 2. Multilevel degenerative changes in the lumbar spine, greatest at L3-L4, L4-L5, and L5-S1. 3. Modic type I endplate degenerative changes at the L1-L2 level. Dictated by: Dictated on workstation # [id number]
== END ==
LOC: RAD 13:11
PROVIDERS: ATTEND Physical Medicine & Rehabilitation
DX: M47.816 Spondylosis without myelopathy or radiculopathy, lumbar region (principal); M47.817 Spondylosis without myelopathy or radiculopathy, lumbosacral region
CPT/HCPCS: 72148

== ENCOUNTER 2022-07-16 13:52 | Observation (INO) | payer MEDICARE ==
[~2022-07-16] VITALS: Ht 162.6 cm; Wt 81.9 kg
--- NOTE | 2022-07-16 14:12 | ED Chest Pain ---
General Chief Complaint: Chest Pain Stated Complaint: CHEST PAINS | SOB Nursing Triage Note: PT ARRIVED PER EMS, PT CO OF CHEST PAIN SINCE THIS AM. PT DENIES PAIN AT THIS X. PT WAS GIVEN NITRO PASTE BY EMS.PT PAIN WAS SUBSTERNAL THRU TO BACK. PT WAS NAUSEATED BUT ZOFRAN HAS HELPED Source: patient Exam Limitations: no limitations History of Present Illness Date Seen by Provider: Jul 16, 2022 Time Seen by Provider: 14:08 Initial Comments Patient is a 82-year-old female with a history of benign hypertension, carotid artery occlusion, mixed hyperlipidemia, morbid obesity, hypertensive disorder who presents the ED by EMS for chest pain. Chest pain started around 6:00 this morning. Pain is located substernal with radiation between her shoulder blades. Patient states pain was constant. On arrival EMS noted that she had some ST depression in her lateral leads. They were concerning for A-fib with RVR. Her heart rate was around 150 bpm. She was given 324 mg of aspirin and Nitropaste with resolution of pain on arrival. She had associated shortness of breath today with several episodes of vomiting this morning that was yellowish in color. She had some shortness of breath but that has improved. She states she saw Dr. Zapata her spring winder this Wednesday but states there was no concerns. She denies fever, cough, abdominal pain, diarrhea, fever, chills, lower extremity weakness, dysuria. Patient was given Zofran in route. She was started on a liter of fluids. She was placed on 2 L oxygen secondary to oxygen level 92% on room air. She does not wear oxygen at home. No history of asthma or COPD or smoking Allergies and Home Medications Allergies Coded Allergies: morphine (Unverified Allergy, Unknown, 01/22/21) Patient Home Medication List Home Medication List Reviewed: Yes ALPRAZolam (Xanax Tablet) 0.25 Mg Tablet, 0.25 MG PO TID PRN for ANXIETY, (Reported) Entered as Reported by: ABEL ERWIN on 04/05/152115 Amlodipine Besylate (Amlodipine Besylate) 5 Mg Tablet, 5 MG PO DAILY, (Reported) Entered as Reported by: ALEX PUENTE on 05/05/18 1553 Ascorbic Acid (Vitamin C) 1,000 Mg Tablet, 1,000 MG PO DAILY, (Reported) Entered as Reported by: ALEX PUENTE on 05/05/181552 Aspirin (Aspirin EC) 81 Mg Tablet.dr, 81 MG PO DAILY, (Reported) Entered as Reported by: ALEX PUENTE on 05/05/181552 Benazepril HCl (Benazepril HCl) 40 Mg Tab, 40 MG PO DAILY, (Reported) Entered as Reported by: ALEX PUENTE on 05/05/181552 Calcium Carbonate/Vitamin D3 (Caltrate 600 + D Tablet) 1 Each Tablet, 1 TAB PO DAILY, (Reported) Entered as Reported by: ALEX PUENTE on 05/05/181552 Cholecalciferol (Vitamin D3) (Vitamin D3) 2,400 Unit/1 Ml Liquid, 5,000 UNIT MC DAILY, (Reported) Entered as Reported by: AFUA CAMARILLO on 01/22/21 115 Ezetimibe (Zetia) 10 Mg Tablet, 10 MG PO DAILY, (Reported) Entered as Reported by: ALEX PUENTE on 05/05/181552 Gemfibrozil (Gemfibrozil) 600 Mg Tablet, 600 MG PO BID, (Reported) Entered as Reported by: AFUA CAMARILLO on 01/22/21 1121 Ibuprofen (Motrin Ib) 200 Mg Capsule, 200 MG PO PRN, (Reported) Entered as Reported by: AFUA CAMARILLO on 01/22/21 1152 Magnesium Oxide (Magnesium) 500 Mg Capsule, 500 MG PO BID, (Reported) Entered as Reported by: ALEX PUENTE on 05/05/181552 Basalt-3/Dha/Epa/Fish Oil (Basalt 3 500 Softgel) 1 Each Capsule, 1 CAP PO BID, (Reported) Entered as Reported by: ALEX PUENTE on 05/05/181552 Oxycodone HCl/Acetaminophen (Percocet 5-325 mg Tablet) 1 Each Tablet, 1-2 TAB PO Q4H PRN for PAIN-SEVERE Prescribed by: JOVANA NEWMAN on 05/13/18 0705 Pantoprazole Sodium (Protonix) 40 Mg Tablet.dr, 40 MG PO DAILY Prescribed by: BUZZ BANEGAS on 01/28/21 1236 Potassium Chloride (Klor-Con 10) 10 Meq Tablet.er, 10 MEQ PO DAILY, (Reported) Entered as Reported by: ALEX PUENTE on 05/05/181552 Review of Systems Review of Systems Constitutional: No chills, No diaphoresis, No malaise EENTM: No Double Vision, No Eye Pain Respiratory: Denies Cough Cardiovascular: Chest Pain; Denies Edema, Denies Irregular Heart Rate Gastrointestinal: Denies Abdominal Pain, Denies Diarrhea; Nausea, Vomiting Genitourinary: Denies Burning, Denies Discharge Musculoskeletal: No back pain, No joint pain, No joint swelling, No muscle pain, No muscle stiffness, No neck pain Skin: No change in color, No change in hair/nails Psychiatric/Neurological: Denies Anxiety, Denies Depressed All Other Systems Reviewed Negative Unless Noted: Yes Past Vspdzfj-Keajnk-Nreich Hx Patient Social History Tobacco Use?: No Substance use?: No Alcohol Use?: No Pt feels they are or have been: No Immunizations Up To Date Tetanus Booster (TDap): Unknown Influenza Vaccine Up-to-Date: Yes; Up-to-Date First/Initial COVID19 Vaccinat: 04/11 Second COVID19 Vaccination Tj: 05/12 Third COVID19 Vaccination Date: 04/11 Seasonal Allergies Seasonal Allergies: Yes Past Medical History Surgery/Hospitalization HX: HTN, GERD, ANEMIA. 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 Genitourinary: No (PROLAPSED BLADDER) Bladder Infection Gastrointestinal: Yes Gastroesophageal Reflux, Gall Bladder Disease Musculoskeletal: Yes Arthritis Endocrine: No HEENT: Yes (WEARS GLASSES FOR READIMG) Dysphagia Loss of Vision: Denies Hearing Impairment: Denies Cancer: Yes Skin Did You Recieve Any Treatments: Yes What Type of Treatment Did You: Surgical Intervention Psychosocial: No Integumentary: Yes (SKIN CANCER REMOVED ON FOREHEAD 01/09) Recent Skin Changes Blood Disorders: No Adverse Reaction/Blood Tranf: No Family Medical History Not obtainable due to adoption 19 FATHER Physical Exam Vital Signs Vital Signs - First Documented 07/16/22 13:55 Pulse 96 Resp 18 B/P (MAP) 121/61 (81) Pulse Ox 96 Capillary Refill : Less Than 3 Seconds Height, Weight, BMI Height: 5'4.00" Weight: 174lbs. 0.0oz. [id number]; 29.00 BMI Method: General Appearance: No Apparent Distress, WD/WN HEENT: PERRL/EOMI, TMs Normal, Normal ENT Inspection, Pharynx Normal Neck: Full Range of Motion, Normal Inspection, Non Tender, Supple Respiratory: Chest Non Tender, Lungs Clear, Normal Breath Sounds Cardiovascular: Regular Rate, Rhythm, No Edema, No Gallop, No JVD, No Murmur Gastrointestinal: Normal Bowel Sounds, No Organomegaly, No Pulsatile Mass, Non Tender Extremity: Normal Capillary Refill, Normal Inspection, Normal Range of Motion, Non Tender Neurologic/Psychiatric: Alert, Oriented x3, No Motor/Sensory Deficits, Normal Mood/Affect, 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 Norm as Tested Skin: Normal Color, Warm/Dry Progress/Results/Core Measures Results/Orders Lab Results Laboratory Tests Test 07/16/22 13:57 07/16/22 14:06 07/16/22 15:25 Range/Units Prothrombin Time 13.1 12.2-14.7 SEC INR Comment 0.9 0.8-1.4 Activated Partial Thromboplast Time 28 24-35 SEC D-Dimer 1.14 H 0.00-0.49 UG/ML Sodium Level 138 135-145 MMOL/L Potassium Level 4.3 3.6-5.0 MMOL/L Chloride Level 105 98-107 MMOL/L Carbon Dioxide Level 20 L 21-32 MMOL/L Anion Gap 13 5-14 MMOL/L Blood Urea Nitrogen 20 H 7-18 MG/DL Creatinine 0.94 0.60-1.30 MG/DL Estimat Glomerular Filtration Rate 61 BUN/Creatinine Ratio 21 Glucose Level 124 H 70-105 MG/DL Calcium Level 10.0 8.5-10.1 MG/DL Corrected Calcium 9.9 8.5-10.1 MG/DL Magnesium Level 1.9 1.6-2.4 MG/DL Total Bilirubin 0.5 0.1-1.0 MG/DL Aspartate Amino Transf (AST/SGOT) 24 5-34 U/L Alanine Aminotransferase (ALT/SGPT) 12 0-55 U/L Alkaline Phosphatase 72 40-136 U/L Myoglobin 31.7 10.0-92.0 NG/ML Troponin I < 0.028 <0.028 NG/ML Total Protein 7.3 6.4-8.2 GM/DL Albumin 4.1 3.2-4.5 GM/DL Lipase 25 8-78 U/L White Blood Count 10.1 4.3-11.0 10^3/uL Red Blood Count 5.57 H 3.80-5.11 10^6/uL Hemoglobin 16.4 H 11.5-16.0 g/dL Hematocrit 48 35-52 % Mean Corpuscular Volume 87 80-99 fL Mean Corpuscular Hemoglobin 29 25-34 pg Mean Corpuscular Hemoglobin Concent 34 32-36 g/dL Red Cell Distribution Width 13.7 10.0-14.5 % Platelet Count 248 130-400 10^3/uL Mean Platelet Volume 9.6 9.0-12.2 fL Immature Granulocyte % (Auto) 0 % Neutrophils (%) (Auto) 89 H 42-75 % Lymphocytes (%) (Auto) 5 L 12-44 % Monocytes (%) (Auto) 5 0-12 % Eosinophils (%) (Auto) 1 0-10 % Basophils (%) (Auto) 0 0-10 % Neutrophils # (Auto) 8.9 H 1.8-7.8 10^3/uL Lymphocytes # (Auto) 0.5 L 1.0-4.0 10^3/uL Monocytes # (Auto) 0.5 0.0-1.0 10^3/uL Eosinophils # (Auto) 0.1 0.0-0.3 10^3/uL Basophils # (Auto) 0.0 0.0-0.1 10^3/uL Immature Granulocyte # (Auto) 0.0 0.0-0.1 10^3/uL Neutrophils % (Manual) 93 % Lymphocytes % (Manual) 3 % Monocytes % (Manual) 3 % Eosinophils % (Manual) 1 % Blood Morphology Comment NORMAL My Orders Orders - COURTNEY LYNNE PA Cbc With Automated Diff (07/16/22 14:06) Magnesium (07/16/22 14:06) Chest 1 View, Ap/Pa Only (07/16/22 14:06) Ekg Tracing (07/16/22 14:06) Comprehensive Metabolic Panel (07/16/22 14:06) Myoglobin Serum (07/16/22 14:06) Protime With Inr (07/16/22 14:06) Partial Thromboplastin Time (07/16/22 14:06) Monitor-Rhythm Ecg Trace Only (07/16/22 14:06) Ed Iv/Invasive Line Start (07/16/22 14:06) Lipase (07/16/22 14:06) Fibrin Degradation Products (07/16/22 14:06) Troponin I [place]ath (07/16/22 13:57) Manual Differential (07/16/22 14:06) Ua Culture If Indicated (07/16/22 14:31) Ct Angio Chest W (R/O Pe) (07/16/22 14:42) Iohexol Injection (Omnipaque 350 Mg/Ml 1 (07/16/22 15:00) Ns (Ivpb) (Sodium Chloride 0.9% Ivpb Bag (07/16/22 15:00) Ed Admission (Communication) (07/16/22 15:42) Medications Given in ED Current Medications Medications Dose Ordered Sig/Tamera Route Start Time Stop Time Status Last Admin Dose Admin Iohexol 100 ml ONCE ONCE IV 07/16/22 15:00 07/16/22 15:01 DC 07/16/22 15:17 100 ML Sodium Chloride 100 ml ONCE ONCE IV 07/16/22 15:00 07/16/22 15:01 DC 07/16/22 15:17 70 ML Vital Signs/I&O 07/16/22 13:55 Pulse 96 Resp 18 B/P (MAP) 121/61 (81) Pulse Ox 96 Blood Pressure Mean: 81 Comment Normal sinus rhythm, low QRS voltage in precordial leads, 96 bpm, QRS duration 84 MS, QTc 391 MS Departure Communication (Admissions) Time/Spoke to Admitting Phy: 15:36 Communication (PCP) ElectedReviewed previous ER visits, H&P, lab testing, cardiac work-up. She had a stress test performed on 09/03/2021 that was negative for ischemia or infarction. Ejection fraction 81%. On arrival EKG showed normal sinus rhythm without evidence of A-fib with RVR. Twelve-lead provided by EMS was concerning for A-fib. She received Nitropaste and a full aspirin 324 with resolution of symptoms on arrival. No history of A- fib. She states she did not has not felt well since 6:00 this morning with a constant substernal chest pain with radiation to her shoulder blades. She had several episodes of bilious vomiting. On arrival she has no abdominal pain. Differential diagnosis of gastritis, esophagitis, ACS, pneumonia, pneumothorax, pancreatitis, cholecystitis. Lab work and cardiac work-up was initiated. She is on estradiol so D-dimer was added. She was not tachycardic or hypoxic on arrival however she was around 92 to 93% on room air. No history of asthma or COPD. CBC showed a normal white blood count of 10, hemoglobin of 16. Normal platelets. Chemistry showed normal kidney function, liver function. Normal troponin. D-dimer elevated 1.14. Chest x-ray showed mild perihilar pneumonitis or cyst. Due to elevated D-dimer CT angio of the chest was ordered which was negative for PE, aneurysm, pneumonia, pleural effusion. Patient is currently pain-free. Urinalysis was negative for infection. Discussed these results with Dr. Zapata spring winder who patient follows. Was seen Wednesday of this week. Recommend observation with serial troponin, Lovenox, aspirin. Patient was discussed with her primary care physician Dr. Jack who accepts patient to cardiac stepdown Impression Primary Impression: Chest pain Disposition: ADMITTED INPATIENT Condition: Stable Admissions Decision to Admit Reason: Admit from ER (General) Decision to Admit/Date: Jul 16, 2022 Time/Decision to Admit Time: 15:36 Departure-Patient Inst. Referrals: SILVERIO JACK DO (PCP/Family) Primary Care Physician COURTNEY LYNNE Jul 16, 2022 14:12
[2022-07-16 14:19] LABS: BASOPHILS % (AUTO) 0 % (0-10); EOSINOPHILS # (AUTO) 0.1 10^3/uL (0.0-0.3); EOSINOPHILS % (AUTO) 1 % (0-10); HEMATOCRIT 48 % (35-52); HEMOGLOBIN 16.4 g/dL (11.5-16.0); LYMPHOCYTES # (AUTO) 0.5 10^3/uL (1.0-4.0); LYMPHOCYTES % (AUTO) 5 % (12-44); MEAN CORPUSCULAR HEMOGLOBIN 29 pg (25-34); MEAN CORPUSCULAR HGB CONC 34 g/dL (32-36); MEAN CORPUSCULAR VOLUME 87 fL (80-99); MEAN PLATELET VOLUME 9.6 fL (9.0-12.2); MONOCYTES # (AUTO) 0.5 10^3/uL (0.0-1.0); MONOCYTES % (AUTO) 5 % (0-12); NEUTROPHILS # (AUTO) 8.9 10^3/uL (1.8-7.8); NEUTROPHILS % (AUTO) 89 % (42-75); PLATELET COUNT 248 10^3/uL (130-400); WHITE BLOOD COUNT 10.1 10^3/uL (4.3-11.0)
[2022-07-16 14:22] LABS: ALBUMIN 4.1 GM/DL (3.2-4.5); CHLORIDE 105 MMOL/L (98-107); POTASSIUM 4.3 MMOL/L (3.6-5.0); SODIUM 138 MMOL/L (135-145)
--- NOTE | 2022-07-16 14:24 | Diagnostic Imaging Report ---
INDICATION: Chest pain. TECHNIQUE: Single AP view of the chest is obtained with comparison made to study of 05/04/2018. FINDINGS: There is suboptimal inspiration which limits evaluation. There is crowding of pulmonary markings in the perihilar and basilar regions. There is no evidence of pneumothorax. No definite pleural fluid is identified. There is advanced degenerative change in the right shoulder with likely chronic rotator cuff injury. IMPRESSION: Mild perihilar atelectasis and/or pneumonitis which is accentuated by hypoventilation. Clinical correlation and repeat study with improved inspiration would be useful. Dictated by: Dictated on workstation # [id number]
[2022-07-16 14:25] LABS: GLUCOSE 124 MG/DL (70-105); TOTAL PROTEIN 7.3 GM/DL (6.4-8.2)
[2022-07-16 14:26] LABS: BILIRUBIN,TOTAL 0.5 MG/DL (0.1-1.0); CARBON DIOXIDE 20 MMOL/L (21-32)
[2022-07-16 14:28] LABS: ALKALINE PHOSPHATASE 72 U/L (40-136)
[2022-07-16 14:29] LABS: CREATININE SERUM 0.94 MG/DL (0.60-1.30); GFR ESTIMATED 61
[2022-07-16 14:30] LABS: BUN/CREATININE RATIO 21
[2022-07-16 14:31] LABS: ALANINE AMINOTRANSFERASE 12 U/L (0-55); MAGNESIUM 1.9 MG/DL (1.6-2.4)
[2022-07-16 14:32] LABS: LIPASE 25 U/L (8-78)
[2022-07-16 14:36] LABS: EOSINOPHILS % (MANUAL) 1 %; LYMPHOCYTES % (MANUAL) 3 %; MONOCYTES % (MANUAL) 3 %; NEUTROPHILS % (MANUAL) 93 %; RBC MORPH NORMAL
[2022-07-16 14:38] LABS: INR 0.9 (0.8-1.4); PROTHROMBIN TIME PATIENT 13.1 SEC (12.2-14.7)
[2022-07-16] MEDS ORDERED: IOHEXOL 350 MG/ML 100 ML (OMNIPAQUE 350) VIAL IV ONE (15:00)
[2022-07-16] MEDS ORDERED: NS 100 ML (IVPB) BAG IV ONE (15:00)
--- NOTE | 2022-07-16 15:25 | Diagnostic Imaging Report ---
INDICATION: Chest pain. TECHNIQUE: CTA of the chest is performed after bolus intravenous administration of iodinated contrast. 3D reformatted images are produced. Automatic exposure controls were utilized to keep dose as low as reasonably achievable. FINDINGS: There is good opacification of pulmonary arteries without intraluminal filling defect. Thoracic aorta is of normal caliber. There is no evidence of dissection. Three-vessel branching pattern arises from the aortic arch. There is mild dependent atelectasis or scarring in the lung bases. There is no evidence of focal consolidation or infiltrate, and no mass is identified. There is no evidence of pathologically enlarged adenopathy. Spinal stimulator device is seen in the dorsal epidural thoracic spine. IMPRESSION: No CTA evidence of pulmonary embolism or other great vessel abnormality in the thorax. Dictated by: Dictated on workstation # [id number]
[2022-07-16 15:45] LABS: BILIRUBIN,URINE NEGATIVE (NEGATIVE); CLARITY,URINE CLOUDY; COLOR,URINE YELLOW; GLUCOSE, URINE (UA) NEGATIVE (NEGATIVE); KETONES,URINE TRACE (NEGATIVE); LEUKOCYTE ESTERASE ,URINE 2+ (NEGATIVE); NITRITE,URINE POSITIVE (NEGATIVE); PH,URINE 8.5 (5-9); PROTEIN,URINE 2+ (NEGATIVE)
[2022-07-16 16:00] LABS: AMORPHOUS SEDIMENT,UR LARGE AMOR PHOSPHATE /LPF; BACTERIA,URINE LARGE /HPF; RBC,URINE RARE /HPF; TRIPLE PHOSPHATE CRYSTAL,UR MODERATE /LPF
[2022-07-16 16:15] VITALS: BP 105/61
[2022-07-16 16:30] VITALS: BP 112/63
[2022-07-16] MEDS ORDERED: diphenhydrAMINE 25 MG TAB (BENADRYL) PO PRN (16:30)
[2022-07-16] MEDS ORDERED: polyethylene glycoL POWDER 17 GM (MIRALAX) PACK PO PRN (16:30)
[2022-07-16] MEDS ORDERED: CALCIUM CARBONATE 500 MG (TUMS) TAB.CHEW PO PRN (16:30)
[2022-07-16] MEDS ORDERED: LACTULOSE SYRUP 10GM/15ML (ENULOSE) 30ML UDC PO PRN (16:30)
[2022-07-16] MEDS ORDERED: BISACODYL 10 MG SUPP (DULCOLAX) PR PRN (16:30)
[2022-07-16] MEDS ORDERED: ANTACID SUSP 30 ML UDC (MYLANTA) PO PRN (16:30)
[2022-07-16] MEDS ORDERED: ONDANSETRON 4 MG (ZOFRAN) ORAL DISSOLVE TAB PO PRN (16:30)
[2022-07-16] MEDS ORDERED: ENOXAPARIN 100 MG/1 ML (LOVENOX) SYR SC SCH (16:30)
[2022-07-16] MEDS ORDERED: ONDANSETRON 4 MG/2 ML (SDV) Z0FRAN IV PRN (16:30)
[2022-07-16] MEDS ORDERED: diphenhydrAMINE 50 MG/ML INJ (BENADRYL) IVP PRN (16:30)
[2022-07-16] MEDS ORDERED: MELATONIN 3 MG TABLET PO PRN (16:30)
[2022-07-16] MEDS ORDERED: NITROGLYCERIN 0.4 MG SL TABS BTL 25'S SL PRN (16:30)
[2022-07-16] MEDS ORDERED: HYDROmorphone 2 MG/ML VIAL (DILAUDID) IV PRN (16:30)
[2022-07-16] MEDS ORDERED: MILK OF MAGNESIA 400 MG/5 ML 30 ML UDC PO PRN (16:30)
[2022-07-16] MEDS ORDERED: NS IV 1000 ML 1,000 ML ONE (16:31)
[2022-07-16 16:32] VITALS: BP 120/63
--- NOTE | 2022-07-16 16:36 | Consultation-Cardiology ---
HPI-Cardiology Cardiology Consultation Date of Consultation 07/16/22 Date of Admission Time Seen by Provider: 16:32 Indication: Chest pain HPI 82-year-old lady with history of hypertension, hyperlipidemia. Woke up this morning and started to have nausea and vomiting then developed sudden onset chest pain retrosternal dull achiness associated with shortness of breath. Patient called EMS and she was brought to the emergency room there was questionable atrial fibrillation noted by EMT, patient was in sinus rhythm on arrival to the hospital. Her chest pain has improved after nitroglycerin and aspirin. On my evaluation she was sitting comfortably in bed, denied any active chest pain. Home Medications & Allergies Allergies: Coded Allergies: morphine (Unverified Allergy, Unknown, 01/22/21) Home Medication List Reviewed: Yes VSO-Tbdfsv-Bphzxn Hx Patient Social History Marital Status: Employed/Student: retired Recent Hopitalizations: No Have you traveled recently?: No Alcohol Use?: No Immunizations Up To Date Tetanus Booster (TDap): Unknown Date of Pneumonia Vaccine: May 04, 2016 Date of Influenza Vaccine: Jan 15, 2021 Past Medical History Discussed below Family Medical History Family History: Not obtainable due to adoption 19 FATHER Review of Systems-General Review of Systems Constitutional: No chills, No diaphoresis, No malaise EENTM: see HPI, no symptoms reported Respiratory: no symptoms reported, see HPI, short of breath Cardiovascular: see HPI, chest pain Gastrointestinal: no symptoms reported, see HPI, nausea, vomiting Genitourinary: no symptoms reported, see HPI Musculoskeletal: No back pain, No joint pain, No joint swelling, No muscle pain, No muscle stiffness, No neck pain Skin: No change in color, No change in hair/nails Psychiatric/Neurological: Denies Anxiety, Denies Depressed All Other Systems Reviewed Negative Unless Noted: Yes Reviewed Test Results Reviewed Test Results Lab Laboratory Tests Test 07/16/22 13:57 07/16/22 14:06 07/16/22 15:25 Range/Units Prothrombin Time 13.1 12.2-14.7 SEC INR Comment 0.9 0.8-1.4 Activated Partial Thromboplast Time 28 24-35 SEC D-Dimer 1.14 H 0.00-0.49 UG/ML Sodium Level 138 135-145 MMOL/L Potassium Level 4.3 3.6-5.0 MMOL/L Chloride Level 105 98-107 MMOL/L Carbon Dioxide Level 20 L 21-32 MMOL/L Anion Gap 13 5-14 MMOL/L Blood Urea Nitrogen 20 H 7-18 MG/DL Creatinine 0.94 0.60-1.30 MG/DL Estimat Glomerular Filtration Rate 61 BUN/Creatinine Ratio 21 Glucose Level 124 H 70-105 MG/DL Calcium Level 10.0 8.5-10.1 MG/DL Corrected Calcium 9.9 8.5-10.1 MG/DL Magnesium Level 1.9 1.6-2.4 MG/DL Total Bilirubin 0.5 0.1-1.0 MG/DL Aspartate Amino Transf (AST/SGOT) 24 5-34 U/L Alanine Aminotransferase (ALT/SGPT) 12 0-55 U/L Alkaline Phosphatase 72 40-136 U/L Myoglobin 31.7 10.0-92.0 NG/ML Troponin I < 0.028 <0.028 NG/ML Total Protein 7.3 6.4-8.2 GM/DL Albumin 4.1 3.2-4.5 GM/DL Lipase 25 8-78 U/L White Blood Count 10.1 4.3-11.0 10^3/uL Red Blood Count 5.57 H 3.80-5.11 10^6/uL Hemoglobin 16.4 H 11.5-16.0 g/dL Hematocrit 48 35-52 % Mean Corpuscular Volume 87 80-99 fL Mean Corpuscular Hemoglobin 29 25-34 pg Mean Corpuscular Hemoglobin Concent 34 32-36 g/dL Red Cell Distribution Width 13.7 10.0-14.5 % Platelet Count 248 130-400 10^3/uL Mean Platelet Volume 9.6 9.0-12.2 fL Immature Granulocyte % (Auto) 0 % Neutrophils (%) (Auto) 89 H 42-75 % Lymphocytes (%) (Auto) 5 L 12-44 % Monocytes (%) (Auto) 5 0-12 % Eosinophils (%) (Auto) 1 0-10 % Basophils (%) (Auto) 0 0-10 % Neutrophils # (Auto) 8.9 H 1.8-7.8 10^3/uL Lymphocytes # (Auto) 0.5 L 1.0-4.0 10^3/uL Monocytes # (Auto) 0.5 0.0-1.0 10^3/uL Eosinophils # (Auto) 0.1 0.0-0.3 10^3/uL Basophils # (Auto) 0.0 0.0-0.1 10^3/uL Immature Granulocyte # (Auto) 0.0 0.0-0.1 10^3/uL Neutrophils % (Manual) 93 % Lymphocytes % (Manual) 3 % Monocytes % (Manual) 3 % Eosinophils % (Manual) 1 % Blood Morphology Comment NORMAL Urine Color YELLOW Urine Clarity CLOUDY Urine pH 8.5 5-9 Urine Specific [place] <=1.005 1.016-1.022 Urine Protein 2+ H NEGATIVE Urine Glucose (UA) NEGATIVE NEGATIVE Urine Ketones TRACE H NEGATIVE Urine Nitrite POSITIVE H NEGATIVE Urine Bilirubin NEGATIVE NEGATIVE Urine Urobilinogen 0.2 < = 1.0 MG/DL Urine Leukocyte Esterase 2+ H NEGATIVE Urine RBC (Auto) TRACE-I H NEGATIVE Urine RBC RARE /HPF Urine WBC 10-25 H /HPF Urine Squamous Epithelial Cells 5-10 /HPF Urine Crystals PRESENT H /LPF Urine Triple Phosphate Crystals MODERATE H /LPF Urine Amorphous Sediment LARGE LOKESH PHOSPHATE H /LPF Urine Bacteria LARGE H /HPF Urine Casts NONE /LPF Urine Mucus NEGATIVE /LPF Urine Culture Indicated YES Physical Exam Physical Exam Vital Signs Vital Signs - First Documented 07/16/22 13:55 Pulse 96 Resp 18 B/P (MAP) 121/61 (81) Pulse Ox 96 Capillary Refill : Less Than 3 Seconds Height, Weight, BMI Height: 5'4.00" Weight: 174lbs. 0.0oz. 78.624638cx; 29.00 BMI Method: General Appearance: No Apparent Distress, WD/WN HEENT: PERRL/EOMI, TMs Normal, Normal ENT Inspection, Pharynx Normal Neck: Full Range of Motion, Normal Inspection, Non Tender, Supple Respiratory: Chest Non Tender, Lungs Clear, Normal Breath Sounds Cardiovascular: Regular Rate, Rhythm, No Edema, No Gallop, No JVD, No Murmur Gastrointestinal: Normal Bowel Sounds, No Organomegaly, No Pulsatile Mass, Non Tender Extremity: Normal Capillary Refill, Normal Inspection, Normal Range of Motion, Non Tender Neurologic/Psychiatric: Alert, Oriented x3, No Motor/Sensory Deficits, Normal 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 Managed by medical team Patient had a stress test done in August 2021 with no significant ischemia or infarction on SPECT images stress score 0, ejection fraction 81% 2D echo done in July 2021 with normal LV size, EF 60 to 65%, PA pressure 25 to 30 mmHg Shortness of breath associated with the chest pain and nausea and vomiting. Improved at this time Continue to monitor Questionable transient atrial fibrillation noted by EMT on arrival to her house. No further arrhythmia detected Known to have paroxysmal atrial tachycardia in the past. Will monitor telemetry Hypertension, monitor blood pressure. Hyperlipidemia. I will evaluate lipid profile and metabolic profile Mild bilateral carotid stenosis, ultrasound was done in July 2021. Continue to monitor History of syncope. No further episodes of syncope reported History of anxiety Degenerative joint disease. Clinical Quality Measures AMI/AHF: ASA po Prior to arrival: Yes NAIMA ESTEVEZ MD Jul 16, 2022 16:36
[2022-07-16] MEDS ORDERED: RT-ALBUTEROL SULF 2.5 MG/3 ML PRE-MIX VIAL INH PRN (16:45)
[2022-07-16] MEDS: ENOXAPARIN 80 MG/0.8 ML (LOVENOX) SYR SC SCH (16:51)
[2022-07-16] MEDS: NS IV 1000 ML 1,000 ML IV SCH (16:52)
--- NOTE | 2022-07-16 18:19 | History & Physical ---
History of Present Illness HPI/Chief Complaint CC: Chest pain HPI: This is an 82yo[facility] clinic patient of mine for 17 years who has a h/o HTN, HLP, syncope and chronic back pain s/p pain stimulator placement who presented to the ER via EMS due to severe chest pain and near syncope. Trop was negative but the decision was made to admit for observation. Currently she is doing much better. is at bedside. Abd usg will be completed to evaluate non-cardiac causes of chest pain. Source: patient, family Exam Limitations: no limitations Date Seen 07/16/22 Time Seen by a Provider: 19:00 Attending Physician Christina Cortés DO PCP Admitting Physician: Christina Cortés DO Attending Physician: Christina Cortés DO Referring Physician Date of Admission Jul 16, 2022 at 16:07 Home Medications & Allergies Home Medications Reviewed patient Home Medication Reconciliation performed by pharmacy medication reconciliations electro mechanical solar technician and/or nursing. Patients Allergies have been reviewed. Allergies Allergies Coded Allergies morphine (Unverified Allergy, Unknown, 01/22/21) Past [id number] Hx Past Med/Social Hx: Reviewed Nursing Past Med/Soc Hx, Reviewed and Corrections made Patient Social History Marrital Status: Employed/Student: retired Alcohol Use: Occasionally Uses Smoking Status: Never a Smoker Recent Hopitalizations: No Recent Infectious Disease Expo: No Immunizations Up To Date Tetanus Booster (TDap): Unknown Date of Pneumonia Vaccine: May 04, 2016 Date of Influenza Vaccine: Jan 15, 2021 Seasonal Allergies Seasonal Allergies: Yes Past Medical History Surgeries: Hysterectomy, Orthopedic Cardiac: High Cholesterol, Hypertension Neurological: Vertigo Reproductive: No Hysterectomy Genitourinary: Bladder Infection Gastrointestinal: Gastroesophageal Reflux, Gall Bladder Disease Musculoskeletal: Arthritis HEENT: Dysphagia Loss of Vision: Denies Hearing Impairment: Denies Cancer: Skin Did You Recieve Any Treatments: Yes What Type of Treatment Did You: Surgical Intervention Skin/Integumentary: Recent Skin Changes History of Blood Disorders: No Adverse Reaction to Blood Jacobsen: No Family History Not obtainable due to adoption 19 FATHER Review of Systems Constitutional: see HPI, malaise, weakness EENTM: no symptoms reported Respiratory: no symptoms reported Cardiovascular: chest pain Gastrointestinal: loss of appetite, nausea, vomiting Genitourinary: frequency Musculoskeletal: back pain, joint pain Skin: no symptoms reported Psychiatric/Neurological: No Symptoms Reported All Other Systems Reviewed Negative Unless Noted: Yes Physical Exam Physical Exam Vital Signs Vital Signs - First Documented 07/16/22 07/16/22 07/16/22 13:55 16:32 20:00 Temp 37.0 Pulse 96 Resp 18 B/P (MAP) 121/61 (81) Pulse Ox 96 FiO2 21 Capillary Refill : Less Than 3 Seconds Height, Weight, BMI Height: 5'4.00" Weight: 174lbs. 0.0oz. [id number]; 29.76 BMI Method: General Appearance: No Apparent Distress, WD/WN, Chronically ill HEENT: PERRL/EOMI, Normal ENT Inspection, Pharynx Normal Neck: Full Range of Motion, Normal Inspection, Non Tender, Supple Respiratory: Chest Non Tender, Lungs Clear, Normal Breath Sounds Cardiovascular: Regular Rate, Rhythm, No Edema, No Gallop, No JVD, No Murmur Gastrointestinal: Normal Bowel Sounds, No Organomegaly, No Pulsatile Mass, Non Tender Extremity: Normal Capillary Refill, Normal Inspection, Normal Range of Motion, Non Tender Neurologic/Psychiatric: Alert, Oriented x3, No Motor/Sensory Deficits, Normal Mood/Affect, obstetrics tech II-XII Norm as Tested Skin: Normal Color, Warm/Dry Results Results/Procedures Labs Laboratory Tests 07/16/22 13:57 07/16/22 14:06 Patient resulted labs reviewed. Assessment/Plan Admission Diagnosis Assessment: Chest pain monitoring for ACS Abdominal pain evaluate source HTN UTI HLP OAB Chronic back pain Plan: Monitor closely Pain control USG in am to eval GB Admission Status: Observation Clinical Quality Measures AMI/AHF: ASA po Prior to arrival: Yes CHRISTINA CORTÉS DO Jul 16, 2022 18:19
[2022-07-16] MEDS ORDERED: cefTRIAXone IV/IM 1,000 MG in NS (IVPB) 50 ML IV SCH (18:45)
[2022-07-16 20:00] VITALS: BP 114/62
[2022-07-16] MEDS: DOCUSATE SODIUM 100 MG (COLACE) CAP PO SCH (20:50)
[2022-07-16] MEDS: ACETAMINOPHEN 325 MG TABLET PO PRN (20:50)
[2022-07-16] MEDS: SENNOSIDES 8.6 MG (SENOKOT) TAB PO SCH (20:50)
[2022-07-16] MEDS ORDERED: ALPRAZolam 0.25 MG (XANAX) TAB PO PRN (23:00)
[2022-07-17 00:22] VITALS: BP 120/52
[2022-07-17] MEDS: NS IV 1000 ML 1,000 ML IV SCH ×2 (02:08→11:22)
[2022-07-17] MEDS: ACETAMINOPHEN 325 MG TABLET PO PRN (02:28)
[2022-07-17 03:57] VITALS: BP 126/55
[2022-07-17] MEDS: ENOXAPARIN 80 MG/0.8 ML (LOVENOX) SYR SC SCH (03:58)
[2022-07-17] MEDS ORDERED: ALPRAZolam 0.25 MG (XANAX) TAB PO PRN (05:00)
[2022-07-17 05:42] LABS: BASOPHILS % (AUTO) 0 % (0-10); EOSINOPHILS # (AUTO) 0.1 10^3/uL (0.0-0.3); EOSINOPHILS % (AUTO) 1 % (0-10); HEMATOCRIT 40 % (35-52); LYMPHOCYTES # (AUTO) 0.5 10^3/uL (1.0-4.0); LYMPHOCYTES % (AUTO) 8 % (12-44); MEAN CORPUSCULAR HEMOGLOBIN 29 pg (25-34); MEAN CORPUSCULAR HGB CONC 33 g/dL (32-36); MEAN CORPUSCULAR VOLUME 89 fL (80-99); MEAN PLATELET VOLUME 10.4 fL (9.0-12.2); MONOCYTES # (AUTO) 0.6 10^3/uL (0.0-1.0); MONOCYTES % (AUTO) 9 % (0-12); NEUTROPHILS # (AUTO) 5.8 10^3/uL (1.8-7.8); NEUTROPHILS % (AUTO) 82 % (42-75); PLATELET COUNT 209 10^3/uL (130-400); WHITE BLOOD COUNT 7.1 10^3/uL (4.3-11.0)
[2022-07-17 06:12] LABS: ALBUMIN 3.5 GM/DL (3.2-4.5); BILIRUBIN,TOTAL 0.4 MG/DL (0.1-1.0); CALCIUM 8.5 MG/DL (8.5-10.1); CREATININE SERUM 0.98 MG/DL (0.60-1.30); POTASSIUM 4.3 MMOL/L (3.6-5.0)
[2022-07-17] MEDS ORDERED: PANTOPRAZOLE 40 MG (PROTONIX) TAB PO SCH ×2 (07:00→09:00)
[2022-07-17 08:00] VITALS: BP 127/58
[2022-07-17] MEDS ORDERED: MAGNESIUM OXIDE (MAG-OX)400 MG TAB PO SCH (08:00)
[2022-07-17] MEDS ORDERED: OMEGA 3 (FISH OIL) 1000 MG CAP PO SCH (08:00)
[2022-07-17] MEDS ORDERED: amLODIPine 5 MG (NORVASC) TAB PO SCH (09:00)
[2022-07-17] MEDS ORDERED: GEMFIBROZIL 600 MG (LOPID) TAB PO SCH (09:00)
[2022-07-17] MEDS ORDERED: ASPIRIN 81 MG CHEW (CHILDREN'S ASA) PO SCH (09:00)
[2022-07-17] MEDS ORDERED: KCL 10 MEQ TAB (MICRO K) PO SCH (09:00)
[2022-07-17] MEDS ORDERED: ASCORBIC ACID (VIT C) 500 MG TABLET PO SCH (09:00)
[2022-07-17] MEDS ORDERED: ASPIRIN E.C. 81 MG (ECOTRIN) TAB PO SCH (09:00)
[2022-07-17] MEDS ORDERED: lisINopril 40 MG (PRINIVIL) TABLET PO SCH (09:00)
[2022-07-17] MEDS ORDERED: eZETimibe 10 MG (ZETIA) TABLET PO SCH (09:00)
[2022-07-17] MEDS ORDERED: VITAMIN D3 125 MCG (5,000 UNITS) CAPSULE PO SCH (09:00)
[2022-07-17] MEDS ORDERED: CALCIUM CARB + VIT D 600 MG (CALCARB + D) TAB PO SCH (09:00)
--- NOTE | 2022-07-17 09:23 | Cardiology Progress Note ---
Subjective Date Seen by Provider: Jul 17, 2022 Time Seen by Provider: 09:22 Subjective/Events-last exam Patient was seen at bedside, feeling better, still having some heartburn and indigestion Review of Systems General: No Chills, No Night Sweats, No Fatigue, No Malaise, No Appetite, No Ot her HEENT: No Head Aches, No Visual Changes, No Eye Pain, No Ear Pain, No Dysp hasia, No Sinus Congestion, No Post Nasal Drip, No Sore Throat, No Other Pulmonary: Dyspnea; No Cough, No Pleuritic Chest Pain, No Other Cardiovascular: No: Chest Pain, Palpitations, Orthopnea, Paroxysmal Noc. Dyspnea, Edema, Lt Headedness, Other Objective-Cardiology Exam Last Set of Vital Signs Vital Signs 07/17/22 08:00 Temp 37.1 Pulse 71 Resp 14 B/P (MAP) 127/58 (81) Pulse Ox 93 O2 Delivery Room Air FiO2 95 I&O Intake and Output 07/17/22 00:00 Intake Total 250 ml Balance 250 ml Intake Oral 250 ml # Voids 2 Daily Weight Change No General: Alert, Oriented X3, Cooperative HEENT: Atraumatic, PERRLA Neck: Supple, No JVD, No Thyromegaly Lungs: Clear to Auscultation, Normal Air Movement Heart: Regular Rate, Normal S1, Normal S2, No Murmurs Abdomen: Normal Bowel Sounds, Soft, No Hepatosplenomegaly, No Masses, Other (Right upper quadrant tenderness) Extremities: No Clubbing, No Cyanosis, No Edema, Normal Pulses, No Tenderness/Swelling Skin: No Rashes, No Breakdown, No Significant Lesion Neuro: Normal Gait, Normal Speech, Strength at 5/5 X4 Ext, Normal Tone, Sensation Intact Psych/Mental Status: Mental Status NL, Mood NL Results Lab Laboratory Tests 07/16/22 13:57 07/16/22 14:06 07/17/22 04:25 A/P-Cardiology Admission Diagnosis Chest pain Shortness of breath Nausea and vomiting Hypertension Assessment/Plan Chest pain, nonspecific etiology, relieved with nitroglycerin and aspirin Cardiac enzymes are normal, EKG did not show any acute changes Right upper quadrant tenderness. 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 Managed by medical team Patient had a stress test done in August 2021 with no significant ischemia or infarction on SPECT images stress score 0, ejection fraction 81% 2D echo done in July 2021 with normal LV size, EF 60 to 65%, PA pressure 25 to 30 mmHg Shortness of breath associated with the chest pain and nausea and vomiting. Improved at this time Continue to monitor Questionable transient atrial fibrillation noted by EMT on arrival to her house. No further arrhythmia detected Known to have paroxysmal atrial tachycardia in the past. Will monitor telemetry Hypertension, monitor blood pressure. Hyperlipidemia. I will evaluate lipid profile and metabolic profile Mild bilateral carotid stenosis, ultrasound was done in July 2021. Continue to monitor History of syncope. No further episodes of syncope reported History of anxiety Degenerative joint disease. NAIMA ESTEVEZ MD Jul 17, 2022 09:23
[2022-07-17] MEDS: SENNOSIDES 8.6 MG (SENOKOT) TAB PO SCH (09:43)
[2022-07-17] MEDS: DOCUSATE SODIUM 100 MG (COLACE) CAP PO SCH (09:43)
--- NOTE | 2022-07-17 09:56 | Diagnostic Imaging Report ---
INDICATION: Abdominal pain. PROCEDURE: Ultrasound abdomen complete. TECHNIQUE: Multiple real-time grayscale images were obtained of the abdomen in various projections. Liver is normal in size at approximately 14 cm. Portal vein is patent and shows normal direction of flow. No liver mass is detected. Gallbladder contains multiple small stones. There is no wall thickening or biliary duct dilatation. Pancreas is unremarkable. Spleen is normal in size at 8.9 cm. Aorta is nonaneurysmal. IVC is patent. Right and left kidneys are without calculi or hydronephrosis. There is no ascites. IMPRESSION: Cholelithiasis without evidence of acute cholecystitis. Dictated by: Dictated on workstation # [id number]
[2022-07-17] MEDS ORDERED: GABA300C PO (10:50)
[2022-07-17] MEDS ORDERED: ESTR0.5T VG (10:50)
[2022-07-17] MEDS ORDERED: CHOL200052 PO (10:50)
[2022-07-17] MEDS ORDERED: MAGN500T PO (10:50)
[2022-07-17] MEDS ORDERED: PANT40TA52 PO (10:50)
[2022-07-17] MEDS ORDERED: OMEG100032 PO (10:50)
[2022-07-17] MEDS ORDERED: FLUT16SP22 NSEACH (10:51)
[2022-07-17] MEDS ORDERED: HYDR-3817 PO (10:51)
[2022-07-17] MEDS ORDERED: CYAN-41 PO (10:59)
[2022-07-17 12:00] VITALS: BP 127/62
[2022-07-17] MEDS ORDERED: CEFD300C3 PO (12:14)
--- NOTE | 2022-07-17 12:14 | Discharge Summary ---
Diagnosis/Chief Complaint Date of Admission Jul 16, 2022 at 16:07 Date of Discharge Discharge Date: Jul 17, 2022 Discharge Diagnosis Chest pain not due to ACS Biliary colic Discharge Summary Discharge Physical Examination Allergies: Coded Allergies: morphine (Unverified Allergy, Unknown, pt has rec hydrocodone and morphine in the past, 07/17/22) Vitals & I&Os Vital Signs Date Time Temp Pulse Resp B/P (MAP) Pulse Ox O2 Delivery O2 Flow Rate FiO2 07/17/22 12:00 37.5 71 16 127/62 (83) 93 07/17/22 08:00 Room Air 07/17/22 08:00 95 General Appearance: Alert, Oriented X3, Cooperative Respiratory: Clear to Auscultation Cardiovascular: Regular Rate Psych/Mental Status: Mental Status NL Hospital Course Was the Problem List Reviewed?: Yes Uneventful course after she was admitted from ER after EMS transfer for severe chest pain. Cardiology consulted and assessed to be no ACS source but GB appeared to have stones and biliary colic dx and arrangements were made with Dr Amador to perform choly Wednesday. Labs (last 24 hrs) Laboratory Tests 07/16/22 13:57: Prothrombin Time 13.1, INR Comment 0.9, Activated Partial Thromboplast Time 28, D-Dimer 1.14H, Sodium Level 138, Potassium Level 4.3, Chloride Level 105, Carbon Dioxide Level 20L, Anion Gap 13, Blood Urea Nitrogen 20H, Creatinine 0.94, Estimat Glomerular Filtration Rate 61, BUN/Creatinine Ratio 21, Glucose Level 124H, Calcium Level 10.0, Corrected Calcium 9.9, Magnesium Level 1.9, Total Bilirubin 0.5, Aspartate Amino Transf (AST/SGOT) 24, Alanine Aminotransferase (ALT/SGPT) 12, Alkaline Phosphatase 72, Myoglobin 31.7, Troponin I < 0.028, Total Protein 7.3, Albumin 4.1, Lipase 25 07/16/22 14:06: White Blood Count 10.1, Red Blood Count 5.57H, Hemoglobin 16.4H, Hematocrit 48, Mean Corpuscular Volume 87, Mean Corpuscular Hemoglobin 29, Mean Corpuscular Hemoglobin Concent 34, Red Cell Distribution Width 13.7, Platelet Count 248, Mean Platelet Volume 9.6, Immature Granulocyte % (Auto) 0, Neutrophils (%) (Auto) 89H, Lymphocytes (%) (Auto) 5L, Monocytes (%) (Auto) 5, Eosinophils (%) (Auto) 1, Basophils (%) (Auto) 0, Neutrophils # (Auto) 8.9H, Lymphocytes # (Auto) 0.5L, Monocytes # (Auto) 0.5, Eosinophils # (Auto) 0.1, Basophils # (Auto) 0.0, Immature Granulocyte # (Auto) 0.0, Neutrophils % (Manual) 93, Lymphocytes % (Manual) 3, Monocytes % (Manual) 3, Eosinophils % (Manual) 1, Blood Morphology Comment NORMAL 07/16/22 15:25: Urine Color YELLOW, Urine Clarity CLOUDY, Urine pH 8.5, Urine Specific [place] <=1.005, Urine Protein 2+H, Urine Glucose (UA) NEGATIVE, Urine Ketones TRACEH, Urine Nitrite POSITIVEH, Urine Bilirubin NEGATIVE, Urine Urobilinogen 0.2, Urine Leukocyte Esterase 2+H, Urine RBC (Auto) TRACE-IH, Urine RBC RARE, Urine WBC 10- 25H, Urine Squamous Epithelial Cells 5-10, Urine Crystals PRESENTH, Urine Triple Phosphate Crystals MODERATEH, Urine Amorphous Sediment LARGE LOKESH PHOSPHATEH, Urine Bacteria LARGEH, Urine Casts NONE, Urine Mucus NEGATIVE, Urine Culture Indicated YES 07/16/22 19:58: Troponin I < 0.028 07/17/22 04:25: White Blood Count 7.1, Red Blood Count 4.45, Hemoglobin 13.0#, Hematocrit 40, Mean Corpuscular Volume 89, Mean Corpuscular Hemoglobin 29, Mean Corpuscular Hemoglobin Concent 33, Red Cell Distribution Width 14.0, Platelet Count 209, Mean Platelet Volume 10.4, Immature Granulocyte % (Auto) 0, Neutrophils (%) (Auto) 82H, Lymphocytes (%) (Auto) 8L, Monocytes (%) (Auto) 9, Eosinophils (%) (Auto) 1, Basophils (%) (Auto) 0, Neutrophils # (Auto) 5.8, Lymphocytes # (Auto) 0.5L, Monocytes # (Auto) 0.6, Eosinophils # (Auto) 0.1, Basophils # (Auto) 0.0, Immature Granulocyte # (Auto) 0.0, Sodium Level 139, Potassium Level 4.3, Chloride Level 108H, Carbon Dioxide Level 22, Anion Gap 9, Blood Urea Nitrogen 17, Creatinine 0.98, Estimat Glomerular Filtration Rate 58, BUN/Creatinine Ratio 17, Glucose Level 88, Calcium Level 8.5, Corrected Calcium 8.9, Total Bilirubin 0.4, Aspartate Amino Transf (AST/SGOT) 23, Alanine Aminotransferase (ALT/SGPT) 16, Alkaline Phosphatase 60, Troponin I 0.028, Total Protein 6.0L, Albumin 3.5, Triglycerides Level 147, Cholesterol Level 167, LDL Cholesterol Direct 91, VLDL Cholesterol 29, HDL Cholesterol 43 Microbiology 07/16/22 Urine Culture - Preliminary, Resulted Proteus species Pending Labs Microbiology Date/Time Source Procedure Growth Status 07/16/22 15:25 Urine Clean Catch Urine Culture - Preliminary Proteus species Resulted Laboratory Tests 07/16/22 13:57: Prothrombin Time 13.1, INR Comment 0.9, Activated Partial Thromboplast Time 28, D-Dimer 1.14, Sodium Level 138, Potassium Level 4.3, Chloride Level 105, Carbon Dioxide Level 20, Anion Gap 13, Blood Urea Nitrogen 20, Creatinine 0.94, Estimat Glomerular Filtration Rate 61, BUN/Creatinine Ratio 21, Glucose Level 124, Calcium Level 10.0, Corrected Calcium 9.9, Magnesium Level 1.9, Total Bilirubin 0.5, Aspartate Amino Transf (AST/SGOT) 24, Alanine Aminotransferase (ALT/SGPT) 12, Alkaline Phosphatase 72, Myoglobin 31.7, Troponin I < 0.028, Total Protein 7.3, Albumin 4.1, Lipase 25 07/16/22 14:06: White Blood Count 10.1, Red Blood Count 5.57, Hemoglobin 16.4, Hematocrit 48, Mean Corpuscular Volume 87, Mean Corpuscular Hemoglobin 29, Mean Corpuscular Hemoglobin Concent 34, Red Cell Distribution Width 13.7, Platelet Count 248, Mean Platelet Volume 9.6, Immature Granulocyte % (Auto) 0, Neutrophils (%) (Auto) 89, Lymphocytes (%) (Auto) 5, Monocytes (%) (Auto) 5, Eosinophils (%) (Auto) 1, Basophils (%) (Auto) 0, Neutrophils # (Auto) 8.9, Lymphocytes # (Auto) 0.5, Monocytes # (Auto) 0.5, Eosinophils # (Auto) 0.1, Basophils # (Auto) 0.0, Immature Granulocyte # (Auto) 0.0, Neutrophils % (Manual) 93, Lymphocytes % (Manual) 3, Monocytes % (Manual) 3, Eosinophils % (Manual) 1, Blood Morphology Comment NORMAL 07/16/22 15:25: Urine Color YELLOW, Urine Clarity CLOUDY, Urine pH 8.5, Urine Specific [place] <=1.005, Urine Protein 2+, Urine Glucose (UA) NEGATIVE, Urine Ketones TRACE, Urine Nitrite POSITIVE, Urine Bilirubin NEGATIVE, Urine Urobilinogen 0.2, Urine Leukocyte Esterase 2+, Urine RBC (Auto) TRACE-I, Urine RBC RARE, Urine WBC 10- 25, Urine Squamous Epithelial Cells 5-10, Urine Crystals PRESENT, Urine Triple Phosphate Crystals MODERATE, Urine Amorphous Sediment LARGE LOKESH PHOSPHATE, Urine Bacteria LARGE, Urine Casts NONE, Urine Mucus NEGATIVE, Urine Culture Indicated YES 07/16/22 19:58: Troponin I < 0.028 07/17/22 04:25: White Blood Count 7.1, Red Blood Count 4.45, Hemoglobin 13.0, Hematocrit 40, Mean Corpuscular Volume 89, Mean Corpuscular Hemoglobin 29, Mean Corpuscular Hemoglobin Concent 33, Red Cell Distribution Width 14.0, Platelet Count 209, Mean Platelet Volume 10.4, Immature Granulocyte % (Auto) 0, Neutrophils (%) (Auto) 82, Lymphocytes (%) (Auto) 8, Monocytes (%) (Auto) 9, Eosinophils (%) (Auto) 1, Basophils (%) (Auto) 0, Neutrophils # (Auto) 5.8, Lymphocytes # (Auto) 0.5, Monocytes # (Auto) 0.6, Eosinophils # (Auto) 0.1, Basophils # (Auto) 0.0, Immature Granulocyte # (Auto) 0.0, Sodium Level 139, Potassium Level 4.3, Chloride Level 108, Carbon Dioxide Level 22, Anion Gap 9, Blood Urea Nitrogen 17, Creatinine 0.98, Estimat Glomerular Filtration Rate 58, BUN/Creatinine Ratio 17, Glucose Level 88, Calcium Level 8.5, Corrected Calcium 8.9, Total Bilirubin 0.4, Aspartate Amino Transf (AST/SGOT) 23, Alanine Aminotransferase (ALT/SGPT) 16, Alkaline Phosphatase 60, Troponin I 0.028, Total Protein 6.0, Albumin 3.5, Triglycerides Level 147, Cholesterol Level 167, LDL Cholesterol Direct 91, VLDL Cholesterol 29, HDL Cholesterol 43 Discharge Home Medications: Active Scripts Active Ondansetron Odt (Ondansetron) 4 Mg Tab.rapdis 4 Mg SL Q4H PRN Cefdinir 300 Mg Capsule 300 Mg PO BID Reported Vitamin B-12 (Cyanocobalamin (Vitamin B-12)) 1,000 Mcg Tablet 1,000 Mcg PO DAILY Hydrocodone-Acetamin 7.5-325 (Hydrocodone/Acetaminophen) 7.5 Mg-325 Mg Tablet 1 Each PO Q8H PRN Fluticasone Propionate 50 Mcg/Actuation Rochert.susp 1 Rochert NSEACH BID PRN Estradiol Tablet (Estradiol) 0.5 Mg Tablet 0.5 Mg VG SUN,WED @HS Pantoprazole Sodium 40 Mg Tablet.dr 40 Mg PO DAILY Neurontin (Gabapentin) 300 Mg Capsule 300 Mg PO BID Vitamin D3 (Cholecalciferol (Vitamin D3)) 50 Mcg (2000 Unit) Tablet 50 Mcg PO 1400 Fish Oil 1,000 mg Softgel (Sherman-3/Dha/Epa/Fish Oil) 1,000 Mg (120 Mg-180 Mg) Capsule 1,000 Mg PO 1400 Magnesium Oxide 500 Mg Tablet 1,000 Mg PO 1400 Gemfibrozil 600 Mg Tablet 600 Mg PO BID Amlodipine Besylate 5 Mg Tablet 5 Mg PO DAILY Benazepril HCl 40 Mg Tab 40 Mg PO DAILY Zetia (Ezetimibe) 10 Mg Tablet 10 Mg PO DAILY Klor-Con 10 (Potassium Chloride) 10 Meq Tablet.er 10 Meq PO DAILY Aspirin EC (Aspirin) 81 Mg Tablet.dr 81 Mg PO 1400 Caltrate 600 + D Tablet (Calcium Carbonate/Vitamin D3) 600 Mg Calcium-20 Mcg (800 Unit) Tablet 1 Tab PO 1400 Vitamin C (Ascorbic Acid) 1,000 Mg Tablet 1,000 Mg PO 1400 Xanax Tablet (Alprazolam) 0.25 Mg Tablet 0.25 Mg PO TID PRN Instructions to patient/family Please see electronic discharge instructions given to patient. Clinical Quality Measures AMI/AHF: ASA po Prior to arrival: Yes SILVERIO JACK DO Jul 17, 2022 12:14
[2022-07-17] MEDS ORDERED: ONDA4TAB11 SL (13:43)
--- NOTE | 2022-07-17 16:04 | Consultation - Surgery ---
History of Present Illness History of Present Illness Patient Consulted On(evie/time) 07/17/22 15:58 Date Seen by Provider: Jul 17, 2022 Time Seen by Provider: 12:35 Reason for Visit: Chest pain History of Present Illness Consult requested by Dr. Jack for cholelithiasis. 82 year old female with nausea, vomiting and epigastric/chest pain started yesterday about noon. Pain was severe. Thought maybe was having a heart attack so was taken to ED. Patient never had pain like this. Currently it has improved. Nothing she can think of made it better or worse. Currently having a little indigestion she thinks. Patient had u/s showing cholelithiasis no evidenced of cholecystitis. Allergies and Home Medications Allergies Coded Allergies: morphine (Unverified Allergy, Unknown, pt has rec hydrocodone and morphine in the past, 07/17/22) Patient Home Medication List Home Medication List Reviewed: Yes ALPRAZolam (Xanax Tablet) 0.25 Mg Tablet, 0.25 MG PO TID PRN for ANXIETY, (Reported) Entered as Reported by: ABEL ERWIN on 04/05/152115 Last Action: Reviewed Amlodipine Besylate (Amlodipine Besylate) 5 Mg Tablet, 5 MG PO DAILY, (Reported) Entered as Reported by: ALEX PUENTE on 05/05/181552 Last Action: Reviewed Ascorbic Acid (Vitamin C) 1,000 Mg Tablet, 1,000 MG PO 1400, (Reported) Entered as Reported by: ALEX PUENTE on 05/05/181552 Last Action: Reviewed Aspirin (Aspirin EC) 81 Mg Tablet.dr, 81 MG PO 1400, (Reported) Entered as Reported by: ALEX PUENTE on 05/05/181552 Last Action: Reviewed Benazepril HCl (Benazepril HCl) 40 Mg Tab, 40 MG PO DAILY, (Reported) Entered as Reported by: ALEX PUENTE on 05/05/181552 Last Action: Reviewed Calcium Carbonate/Vitamin D3 (Caltrate 600 + D Tablet) 600 Mg Calcium-20 Mcg (8 00 Unit) Tablet, 1 TAB PO 1400, (Reported) Entered as Reported by: ALEX PUENTE on 05/05/181552 Last Action: Reviewed Cefdinir (Cefdinir) 300 Mg Capsule, 300 MG PO BID Prescribed by: SILVERIO JACK on 07/17/22 1214 Cholecalciferol (Vitamin D3) (Vitamin D3) 50 Mcg (2000 Unit) Tablet, 50 MCG PO 1400, (Reported) Entered as Reported by: ALPA FERNANDEZ on 07/17/221049 Last Action: Reviewed Cyanocobalamin (Vitamin B-12) (Vitamin B-12) 1,000 Mcg Tablet, 1,000 MCG PO DAILY, (Reported) Entered as Reported by: ALPA FERNANDEZ on 07/17/22 105 Last Action: Reviewed Estradiol (Estradiol Tablet) 0.5 Mg Tablet, 0.5 MG VG SUN,WED @HS, (Reported) Entered as Reported by: ALPA FERNANDEZ on 07/17/221049 Last Action: Reviewed Ezetimibe (Zetia) 10 Mg Tablet, 10 MG PO DAILY, (Reported) Entered as Reported by: ALEX PUENTE on 05/05/18 1553 Last Action: Reviewed Fluticasone Propionate (Fluticasone Propionate) 50 Mcg/Actuation [place].susp, 1 SPRAY NSEACH BID PRN for CONGESTION, (Reported) Entered as Reported by: ALPA FERNANDEZ on 07/17/22 105 Last Action: Reviewed Gabapentin (Neurontin) 300 Mg Capsule, 300 MG PO BID, (Reported) Entered as Reported by: ALPA FERNANDEZ on 07/17/221049 Last Action: Reviewed Gemfibrozil (Gemfibrozil) 600 Mg Tablet, 600 MG PO BID, (Reported) Entered as Reported by: AFUA CAMARILLO on 01/22/21 1121 Last Action: Reviewed Hydrocodone/Acetaminophen (Hydrocodone-Acetamin 7.5-325) 7.5 Mg-325 Mg Tablet, 1 EACH PO Q8H PRN for PAIN-MODERATE (5-7), (Reported) Entered as Reported by: ALPA FERNANDEZ on 07/17/22 105 Last Action: Reviewed Magnesium Oxide (Magnesium Oxide) 500 Mg Tablet, 1,000 MG PO 1400, (Reported) Entered as Reported by: ALPA FERNANDEZ on 07/17/221049 Last Action: Reviewed Altura-3/Dha/Epa/Fish Oil (Fish Oil 1,000 mg Softgel) 1,000 Mg (120 Mg-180 Mg) Capsule, 1,000 MG PO 1400, (Reported) Entered as Reported by: ALPA FERNANDEZ on 07/17/22 105 Last Action: Reviewed Ondansetron (Ondansetron Odt) 4 Mg Tab.rapdis, 4 MG SL Q4H PRN for NAUSEA/VOMITING Prescribed by: SILVERIO JACK on 07/17/22 1343 Pantoprazole Sodium (Pantoprazole Sodium) 40 Mg Tablet.dr, 40 MG PO DAILY, (Reported) Entered as Reported by: ALPA FERNANDEZ on 07/17/22 105 Last Action: Reviewed Potassium Chloride (Klor-Con 10) 10 Meq Tablet.er, 10 MEQ PO DAILY, (Reported) Entered as Reported by: ALEX PUENTE on 05/05/181552 Last Action: Reviewed Discontinued Medications Cholecalciferol (Vitamin D3) (Vitamin D3) 2,400 Unit/1 Ml Liquid, 5,000 UNIT MC DAILY, (Reported) Discontinued Reason: Prescription changed Entered as Reported by: AFUA CAMARILLO on 01/22/21 115 Last Action: Converted Ibuprofen (Motrin Ib) 200 Mg Capsule, 200 MG PO PRN, (Reported) Discontinued Reason: No Longer Taking Entered as Reported by: AFUA CAMARILLO on 01/22/21 115 Last Action: Discontinued Altura-3/Dha/Epa/Fish Oil (Altura 3 500 Softgel) 1 Each Capsule, 1 CAP PO BID, (Reported) Discontinued Reason: Prescription changed Entered as Reported by: ALEX PUENTE on 05/05/181552 Last Action: Converted Oxycodone HCl/Acetaminophen (Percocet 5-325 mg Tablet) 1 Each Tablet, 1-2 TAB PO Q4H PRN for PAIN-SEVERE Discontinued Reason: No Longer Taking Prescribed by: JOVANA NEWMAN on 05/13/18 0705 Last Action: Discontinued Pantoprazole Sodium (Protonix) 40 Mg Tablet., 40 MG PO DAILY Discontinued Reason: Duplicate Order Prescribed by: BUZZ BANEGAS on 01/28/21 1236 Last Action: Discontinued Past Xysxwvx-Ugtvvy-Phzgzo Hx Patient Social History Smoking Status: Never a Smoker Recent Hopitalizations: No Alcohol Use?: Yes Have you traveled recently?: No Immunizations Up To Date Tetanus Booster (TDap): Unknown Date of Pneumonia Vaccine: May 04, 2016 Date of Influenza Vaccine: Jan 15, 2021 Seasonal Allergies Seasonal Allergies: Yes Surgeries History of Surgeries: Yes (BACK SURGERY 2020 " STIMULATOR IN BACK" RT KNEE REPLACEMENT) Surgeries: Hysterectomy, Orthopedic Respiratory History of Respiratory Disorde: No Cardiovascular History of Cardiac Disorders: Yes Cardiac Disorders: High Cholesterol, Hypertension Neurological History of Neurological Disord: Yes Neurological Disorders: Vertigo Reproductive System Hx Reproductive Disorders: No [employer] WORK[employer] HEL[employer] History: Hysterectomy Genitourinary History of Genitourinary Disor: No (PROLAPSED BLADDER) Genitourinary Disorders: Bladder Infection Gastrointestinal History of Gastrointestinal Di: Yes Gastrointestinal Disorders: Gastroesophageal Reflux, Gall Bladder Disease Musculoskeletal History of Musculoskeletal Dis: Yes Musculoskeletal Disorders: Arthritis Endocrine History of Endocrine Disorders: No HEENT History of HEENT Disorders: Yes (WEARS GLASSES FOR READIMG) HEENT Disorders: Dysphagia Loss of Vision: Denies Hearing Impairment: Denies Cancer History of Cancer: Yes Cancer: Skin Psychosocial History of Psychiatric Problem: No Integumentary History of Skin or Integumenta: Yes (SKIN CANCER REMOVED ON FOREHEAD 01/09) Skin/Integumentary Disorders: Recent Skin Changes Blood Transfusions History of Blood Disorders: No Adverse Reaction to a Blood Tr: No Reviewed Nursing Assessment Reviewed/Agree w Nursing PMH: Yes Family Medical History Significant Family History: No Pertinent Family Hx Family Medial History: Not obtainable due to adoption 19 FATHER Review of Systems-General Constitutional: No chills, No diaphoresis EENTM: No blurred vision, No double vision Respiratory: No cough, No dyspnea on exertion Cardiovascular: chest pain; No edema Gastrointestinal: abdominal pain (ruq), nausea, vomiting Genitourinary: No decreased output, No discharge Musculoskeletal: No back pain, No joint pain Skin: No change in color, No change in hair/nails Psychiatric/Neurological: Denies Anxiety, Denies Depressed, Denies Emotional Problems All Other Systems Reviewed Negative Unless Noted: Yes (Negative excepted noted.) Physical Exam-General Problems Physical Exam Vital Signs Vital Signs - First Documented 07/16/22 07/16/22 07/16/22 13:55 16:32 20:00 Temp 37.0 Pulse 96 Resp 18 B/P (MAP) 121/61 (81) Pulse Ox 96 FiO2 21 Capillary Refill : Less Than 3 Seconds General Appearance: WD/WN, no apparent distress HEENT: PERRL/EOMI, normal ENT inspection Neck: non-tender, supple Respiratory: chest non-tender, no respiratory distress, no accessory muscle use Cardiovascular: regular rate, rhythm, no JVD Gastrointestinal: soft, tenderness (minimal epigastric) Rectal: deferred Back: normal inspection, no CVA tenderness Extremities: non-tender, normal inspection Neurologic/Psychiatric: alert, normal mood/affect, oriented x 3 Skin: normal color, warm/dry Lymphatic: no adenopathy Data Review Labs Laboratory Tests 07/16/22 19:58: Troponin I < 0.028 07/17/22 04:25: Troponin I 0.028, White Blood Count 7.1, Red Blood Count 4.45, Hemoglobin 13.0#, Hematocrit 40, Mean Corpuscular Volume 89, Mean Corpuscular Hemoglobin 29, Mean Corpuscular Hemoglobin Concent 33, Red Cell Distribution Width 14.0, Platelet Count 209, Mean Platelet Volume 10.4, Immature Granulocyte % (Auto) 0, Neutrophils (%) (Auto) 82H, Lymphocytes (%) (Auto) 8L, Monocytes (%) (Auto) 9, Eosinophils (%) (Auto) 1, Basophils (%) (Auto) 0, Neutrophils # (Auto) 5.8, Lymphocytes # (Auto) 0.5L, Monocytes # (Auto) 0.6, Eosinophils # (Auto) 0.1, Basophils # (Auto) 0.0, Immature Granulocyte # (Auto) 0.0, Sodium Level 139, Potassium Level 4.3, Chloride Level 108H, Carbon Dioxide Level 22, Anion Gap 9, Blood Urea Nitrogen 17, Creatinine 0.98, Estimat Glomerular Filtration Rate 58, BUN/Creatinine Ratio 17, Glucose Level 88, Calcium Level 8.5, Corrected Calcium 8.9, Total Bilirubin 0.4, Aspartate Amino Transf (AST/SGOT) 23, Alanine Paulino otransferase (ALT/SGPT) 16, Alkaline Phosphatase 60, Total Protein 6.0L, Albumin 3.5, Triglycerides Level 147, Cholesterol Level 167, LDL Cholesterol Direct 91, VLDL Cholesterol 29, HDL Cholesterol 43 Microbiology 07/16/22 Urine Culture - Preliminary, Resulted Proteus species Assessment/Plan Assessment/Plan Assessment/Plan epigastric pain cholelithiasis patient with cholelithiasis she received lovenox. i think her symptoms likely from her gallbladder. we discussed risks and benefits of laparoscopic cholecystectomy with intraoperative cholangiogram all other indicated procedures she wishes to proceed. Will schedule for Wednesday. Instructed to avoid fatty foods and dairy. Clinical Quality Measures AMI/AHF: ASA po Prior to arrival: Yes BUZZ BANEGAS DO Jul 17, 2022 16:04
[2022-07-18] MEDS ORDERED: ASCORBIC ACID (VIT C) 500 MG TABLET PO SCH (14:00)
[2022-07-18] MEDS ORDERED: MAGNESIUM OXIDE (MAG-OX)400 MG TAB PO SCH (14:00)
[2022-07-18] MEDS ORDERED: ASPIRIN 81 MG CHEW (CHILDREN'S ASA) PO SCH (14:00)
[2022-07-18] MEDS ORDERED: OMEGA 3 (FISH OIL) 1000 MG CAP PO SCH (14:00)
[2022-07-18] MEDS ORDERED: CALCIUM CARB + VIT D 600 MG (CALCARB + D) TAB PO SCH (14:00)
[2022-07-20] MEDS ORDERED: ACHD5005 PO (13:02)
== END 2022-07-17 13:55 | disposition home or self-care (01) ==
LOC: EDUNIT# 13:52 → ER 13:54 → CSD 16:07
PROVIDERS: ADMIT Internal Medicine; ATTEND Internal Medicine
DX: R07.9 Chest pain, unspecified (principal); K80.50 Calculus of bile duct without cholangitis or cholecystitis without obstruction; E66.01 Morbid (severe) obesity due to excess calories; E78.5 Hyperlipidemia, unspecified; I65.23 Occlusion and stenosis of bilateral carotid arteries; I10 Essential (primary) hypertension; M19.90 Unspecified osteoarthritis, unspecified site; N32.81 Overactive bladder; G89.29 Other chronic pain; M54.9 Dorsalgia, unspecified; N39.0 Urinary tract infection, site not specified; F41.9 Anxiety disorder, unspecified; Z86.79 Personal history of other diseases of the circulatory system; Z91.199 Patient's noncompliance with other medical treatment and regimen due to unspecified reason; Z87.19 Personal history of other diseases of the digestive system; Z68.31 Body mass index [BMI] 31.0-31.9, adult
CPT/HCPCS: 71045; 71275; 76700; 80053 ×2; 80061; 81000; 83690; 83735; 83874; 84484 ×2; 85007; 85025; 85027; 85379; 85610; 85730; 87077; 87088; 87186; 93005 ×2; 93041; 94664; 96361 ×2; 96372 ×2; 96375; 99284; C8929; G0378; 36415; 93306

== ENCOUNTER 2022-07-20 10:53 | Day surgery (SDC) | payer MEDICARE ==
[~2022-07-20] VITALS: Ht 162.6 cm; Wt 81.9 kg
[2022-07-20] VITALS (12 sets, daily range): BP systolic 128–177; BP diastolic 62–89
[~2022-07-20 10:53] MED LIST changes: +CEFD300C3 PO; +CHOL200052 PO; +CYAN-41 PO; +ESTR0.5T VG; +FLUT16SP22 NSEACH; +GABA300C PO; +HYDR-3817 PO; +MAGN500T PO; +OMEG100032 PO; +ONDA4TAB11 SL; +PANT40TA52 PO
[2022-07-20] MEDS ORDERED: ceFAZolin INJECTION 2,000 MG in NS (IVPB) 50 ML IV ONE (11:15)
[2022-07-20] MEDS: LACTATED RINGERS 1,000 ML IV PRN ×2 (11:29→13:05)
[2022-07-20] MEDS ORDERED: ONDANSETRON 4 MG/2 ML (SDV) Z0FRAN ONE ×2 (11:40→13:24)
[2022-07-20] MEDS ORDERED: proPOfol 200 MG/20 ML (DIPRIVAN) VIAL IV ONE (11:40)
[2022-07-20] MEDS ORDERED: LIDOCAINE PF 2% 5 ML (XYLOCAINE) VIAL ONE (11:40)
[2022-07-20] MEDS ORDERED: SEVOFLURANE (ULTANE) 15 ML INHAL SOLN ONE ×2 (11:40→12:48)
[2022-07-20] MEDS ORDERED: fentaNYL INJ 100 MCG/2 ML AMP ONE ×2 (11:40→13:24)
--- NOTE | 2022-07-20 11:53 | Progress Note-Pre Operative ---
Pre-Operative Progress Note Date H&P Reviewed: July 20, 2022 Time H&P Reviewed: 11:52 History & Physical: H&P Reviewed, Patient Examed, No changes noted Pre-Operative Diagnosis: cholelithiasis BUZZ BANEGAS DO July 20, 2022 11:53
[2022-07-20] MEDS ORDERED: PHENYLEPHRINE 100 MCG/ML 10 ML (ANESTHESIA) SYR ONE (12:15)
[2022-07-20] MEDS: BUP/EPI 0.5% 1:200,000 (SENSORCAINE) 30 ML VIAL ONE (12:20)
[2022-07-20] MEDS ORDERED: ROCURONIUM 50 MG/5 ML (ZEMURON) VIAL IV ONE (12:48)
[2022-07-20] MEDS ORDERED: ACHD5005 PO (13:02)
--- NOTE | 2022-07-20 13:03 | Discharge Inst-Simple/Standard ---
Discharge Inst-Standard Discharge Medications New, Converted or Re-Newed RX: Transmitted to Pharmacy Patient Instructions/Follow Up Plan of Care/Instructions/FU: 2 weeks Perry Activity as Tolerated: No Discharge Diet: Regular Diet Other Inst to Patient Follow up Appt: Make appointment for 2 weeks. Instructions: No lifting greater than 10 pounds. No strenuous activity. May shower in 24 hours, no tub bath or soaking. Use incentive spirometer at home as directed. No Smoking Skin/Wound Care: You have special glue over incision, it will fall off on it's own. Symptoms to Report: Appetite Changes, Extremity Discoloration, Numbness/Tingling, Swelling Increased, Bleeding Excessive, Eyesight Changes, Pain Increased, Urine Color Change, Constipation(Persistent), Fever over 101 degree F, Pain/Pressure in chest, Urinating Difficulty, Cough Up/Vomit Blood, Heart Beat Irreg/Pounding, Pain/Pressure in jaw, Vaginal Bleeding Increase, Cramps in feet or legs, Lightheadedness, Pain/Pressure in shoulder, Diarrhea(Persistent), Memory Changes Suddenly, Questions/Concerns, Weight gain consecutive days, Dizziness/Fainting, Nausea/Vomiting, Shortness of Breath, Weight gain over 2 pounds. If eyes or skin turn yellow notify physician. If questions or concerns contact your physician Or seek help at emergency department. BUZZ BANEGAS DO July 20, 2022 13:03
--- NOTE | 2022-07-20 13:04 | Progress Note-Post Operative ---
Post-Operative Progess Note Surgeon (s)/Overhead Cleaner (s) Surgeon BUZZ BANEGAS DO Overhead Cleaner: Dr. Calhoun to assist in retraction dissection and closure. Pre-Operative Diagnosis cholelithiasis Post-Operative Diagnosis same Procedure & Operative Findings Date of Procedure 07/20/22 Procedure Performed/Findings PROCEDURE: Laparoscopic cholecystectomy with intraoperative cholangiogram. COMPLICATIONS: None. PROCEDURE: The patient was taken to the operating suite and was prepped and draped in sterile fashion. A surgical pause was performed. Just superior to the umbilicus, a 12 mm incision was made. Dissection was taken down to the fascia, which was then scored and grasped with a Ray and the abdomen was then entered. A 0 Vicryl suture was placed in a [id number] fashion and a Holden trocar was placed and secured. Pneumoperitoneum was achieved. A 5mm trochar place in the subxyphoid and 2 in the right upper quadrant. The gallbladder was then grasped and elevated. The cystic duct, and cystic artery were then dissected out. Clip was placed on the distal portion of the cystic duct which was then partially transected. An arrow catheter was inserted into the duct. The cholangiogram was then performed. No filing defects and contrast made its way into the duodenum. Catheter removed. Clips were placed on proximal portion of the cystic duct and then the duct was then transected. Clips were placed along the proximal and distal portion of the cystic artery which was then transected. Hook cautery was used to dissect the gallbladder from the gallbladder fossa achieving hemostasis. The gallbladder was placed in an Endobag and removed through the 12 mm trocar site. The abdomen was then reinspected. Copious amounts of irrigation were used to irrigate the abdomen and there were no signs of active bleeding. Hemostasis had been achieved. The 12 mm fascial defect was then closed with 0 Vicryl suture that had been placed in a [id number] fashion. The abdomen was then desufflated, the trocars were removed. The abdomen was then washed and dried. The skin was then closed using 4-0 Monocryl in a subcuticular fashion. The abdomen was washed and dried and Skin Affix was place over incisions. Patient tolerated the procedure well without any complications and was taken to the recovery room in stable condition. Anesthesia Type general Estimated Blood Loss Estimated blood loss (mL): minimal Specimens/Packing Specimens Removed gallbladder BUZZ BANEGAS DO July 20, 2022 13:04
[2022-07-20] MEDS ORDERED: MEPERIDINE (DEMEROL) INJ 50 MG/ML IVP ONE (13:30)
[2022-07-20] MEDS ORDERED: fentaNYL INJ 100 MCG/2 ML AMP IVP ONE (13:30)
[2022-07-20] MEDS ORDERED: ONDANSETRON 4 MG/2 ML (SDV) Z0FRAN IVP PRN (13:30)
[2022-07-20] MEDS ORDERED: HYDROcodone/APAP 5 MG/325 MG (LORTAB) TAB PO ONE (15:00)
--- NOTE | 2022-07-20 17:06 | Diagnostic Imaging Report ---
INDICATION: Cholecystectomy. Abdominal pain. COMPARISON: 07/17/2022 Total fluoroscopy time: 9 seconds Total number of fluoroscopic images saved: 2 FINDINGS: Multiple digital subtraction images of the right upper abdominal quadrant were obtained during intraoperative cholangiogram. Images provided show contrast opacifying the intra and extrahepatic biliary ductal systems. No large intraluminal filling defects are seen. There is emptying of contrast into the small bowel, as expected. Please note, interpreting radiologist was not present during the procedure. IMPRESSION:. Fluoroscopic guidance provided during intraoperative cholangiogram, as above. Dictated by: Dictated on workstation # [id number]
--- NOTE | 2022-07-31 07:05 | Anesthesia-General Post-Op ---
General Significant Intra-Op Events Notes postop anesthesia addendum on 07/20 at 1400 Patient Condition Mental Status/LOC: Same as Preop Cardiovascular: Satisfactory Nausea/Vomiting: Absent Respiratory: Satisfactory Pain: Controlled Complications: Absent Post Op Complications Complications None Follow Up Care/Instructions Patient Instructions None needed. Anesthesia/Patient Condition Patient Condition Patient is doing well, no complaints, stable vital signs, no apparent adverse anesthesia problems. No complications reported per nursing. ANA M FLORES CRNA July 31, 2022 07:05
== END 2022-07-20 16:05 | disposition home or self-care (01) ==
LOC: SDC 10:53
PROVIDERS: ATTEND Surgery
DX: K80.10 Calculus of gallbladder with chronic cholecystitis without obstruction (principal)
CPT/HCPCS: 76000; 87081; 88304